=== PATIENT | female | born 1945 | race American Indian/Alaskan Native ===

== ENCOUNTER 2017-01-13 17:32 | Emergency (ER) | payer MEDICARE, OTHER ==
[2017-01-13] MEDS ORDERED: Albuterol/Ipratropium 3.0-0.5 MG/3 ML Neb Soln NEB ONE (18:40)
[2017-01-13 19:32] LABS: CHLORIDE,CL 108 mmol/L (101-111); SODIUM,NA 138 mmol/L (135-145)
[2017-01-13 19:43] VITALS: BP 134/49
[2017-01-13] MEDS ORDERED: Levofloxacin/Dextrose 5%-Water 750 MG in Premix Bag 1 BAG IV ONE (20:00)
--- NOTE | 2017-01-13 20:06 | EDM.PDOC ---
Scribed by María Ramesh 01/13/172004 for Goldie Last NP ED HPI GENERAL MEDICAL PROBLEM - General Chief Complaint: Respiratory Problem Stated Complaint: CHEST IS CONGESTED,HARD TO BREATH, Time Seen by Provider: 01/13/17 18:33 Source of Information: Reports: Patient, RN, RN Notes Reviewed History Limitations: Reports: No Limitations - History of Present Illness INITIAL COMMENTS - FREE TEXT/NARRATIVE: Patient states the cough began this am.Wheezing this am. Coughing up white sputum. Used [place] cough drops. No sore throat, fevers, chest pain, nausea, vomiting or diarrhea. Positive chills and SOB. Onset: Today Location: Reports: Head, Chest Quality: Reports: Ache Severity: Mild Improves with: Reports: None Worsens with: Reports: None Associated Symptoms: Reports: No Other Symptoms - Related Data Allergies Allergy/AdvReac Type Severity Reaction Status Date / Time Iodinated Contrast- Oral and Allergy Cannot Verified 01/06/16 18:05 IV Dye Remember [Iodinated Contrast Media - IV Dye] lisinopril Allergy Cannot Verified 01/06/16 18:05 Remember shellfish derived Allergy Cannot Verified 01/06/16 18:05 Remember Home Meds: Home Meds Acetaminophen 1,000 mg PO Q4H PRN 09/19/14 [History] Aspirin [Halfprin] 81 mg PO DAILY 09/19/14 [History] Calcium Citrate/Vitamin D3 [Calcium Cit-Vit D 315-200] 1 tab PO BID 09/19/14 [ History] Cholecalciferol (Vitamin D3) [Vitamin D3] 1 tab PO BID 09/19/14 [History] Diclofenac Sodium [Voltaren 1% Gel] 1 applic TOP QID PRN 09/19/14 [History] Iron Polysaccharides Complex [Ferrex 150] 150 mg PO DAILY 09/19/14 [History] Loratadine 10 mg PO DAILY 09/19/14 [History] Pnv No.122/Iron/Folic Acid [ Multi Tablet] 1 tab PO DAILY 09/19/14 [ History] sitaGLIPtin Phos/Metformin HCl [Janumet Xr 50-1,000 mg Tablet] 1 tab PO BID 10/27 [History] Past Medical History HEENT History: Reports: Allergic Rhinitis, Impaired Vision Cardiovascular History: Reports: Hypertension Other Cardiovascular History: ?TIA vs neuritis pain left face. 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 Endocrine/Metabolic History: Reports: Diabetes, Type II Other Endocrine/Metabolic History: OSTEOARTHRITIS, right knee Hematologic History: Reports: Iron Deficiency Immunologic History: Reports: None Oncologic (Cancer) History: Reports: None Dermatologic History: Reports: None - Infectious Disease History Infectious Disease History: Reports: Chicken Pox, Measles, Mumps - Past Surgical History Head Surgeries/Procedures: Reports: None HEENT Surgical History: Reports: Cataract Surgery GI Surgical History: Reports: Appendectomy, Cholecystectomy Female Surgical History: Reports: Section Social & Family History - Family History Family Medical History: Noncontributory - Tobacco Use Smoking Status *Q: Never Smoker Years of Tobacco use: 50 Packs/Tins Daily: 1 Used Tobacco, but Quit: Yes Month Tobacco Last Used: March Second Hand Smoke Exposure: No - Caffeine Use Caffeine Use: Reports: Coffee, Tea - Recreational Drug Use Recreational Drug Use: No ED ROS GENERAL - Review of Systems Review Of Systems: ROS reveals no pertinent complaints other than HPI. ED EXAM, GENERAL - Physical Exam Exam: See Below Exam Limited By: No Limitations General Appearance: Alert, WD/WN, No Apparent Distress Eye Exam: Bilateral Eye: Normal Inspection Ears: Normal External Exam, Normal Canal, Hearing Grossly Normal, Normal TMs Nose: Normal Inspection, Normal Mucosa, No Blood Throat/Mouth: Normal Inspection, Normal Lips, Normal Teeth, Normal Gums, Normal Oropharynx, Normal Voice, No Airway Compromise Head: Atraumatic, Normocephalic Neck: Normal Inspection, Supple, Non-Tender, Full Range of Motion Respiratory/Chest: Crackles (RLL. ), Wheezing (throughout) Cardiovascular: Normal Peripheral Pulses, Regular Rate, Rhythm, No Edema, No Gallop, No JVD, No Murmur, No Rub GI/Abdominal: Normal Bowel Sounds, Soft, Non-Tender, No Organomegaly, No Distention, No Abnormal Bruit, No Mass (Female) Exam: Deferred Rectal (Female) Exam: Deferred Back Exam: Normal Inspection, Full Range of Motion, NT Extremities: Normal Inspection, Normal Range of Motion, Non-Tender, Normal Capillary Refill, No Pedal Edema Neurological: Alert, Oriented, CN II-XII Intact, Normal Cognition, Normal Gait, Normal Reflexes, No Motor/Sensory Deficits Psychiatric: Normal Affect, Normal Mood Skin Exam: Warm, Dry, Intact, Normal Color, No Rash Course - Vital Signs Last Recorded V/S: Last Vital Signs Temp 99.3 F 01/13/17 19:43 Pulse 79 01/13/17 19:43 Resp 18 01/13/17 19:43 BP 134/49 L 01/13/17 19:43 Pulse Ox 98 01/13/17 19:43 - Orders/Labs/Meds Orders: Active Orders 24 hr Category Date Time Status RT Aerosol Therapy [RC] ASDIRECTED Care 01/13/17 18:40 Active CULTURE BLOOD [BC] Stat Lab 01/13/17 19:41 Ordered CULTURE BLOOD [BC] Stat Lab 01/13/17 19:41 Ordered LACTIC ACID [CHEM] Stat Lab 01/13/17 19:41 Ordered Levofloxacin/Dextrose 5%-Water [Levaquin in D5W 750 MG/ Med 01/13/17 20:00 Ordered 150 ML] 750 mg Premix Bag 1 bag IV ONETIME Blood Culture x2 Reflex Set [OM.PC] Stat Oth 01/13/17 19:41 Ordered Medication Orders Levofloxacin/Dextrose 750 mg/ (Premix) 150 mls @ 100 mls/hr IV ONETIME ONE Stop: 01/13/17 21:29 Labs: Laboratory Tests 01/13/17 01/13/17 Range/Units 18:55 18:55 WBC 13.2 H (5.0-10.0) 10^3/uL RBC 4.65 (4.2-5.4) 10^6/uL Hgb 10.2 L (12.0-16.0) g/dL Hct 33.3 L (37.0-47.0) % MCV 71.6 L (80-100) fL MCH 21.9 L (27.0-34.0) pg MCHC 30.6 L (33.0-35.0) g/dL Plt Count 206 (150-450) 10^3/uL Neut % (Auto) 81.0 H (42.2-75.2) % Lymph % (Auto) 8.2 L (20.5-50.1) % [place] % (Auto) 10.0 H (2-8) % Eos % (Auto) 0.5 L (1.0-3.0) % Baso % (Auto) 0.3 (0.0-1.0) % Sodium 138 (135-145) mmol/L Potassium 3.8 (3.6-5.0) mmol/L Chloride 108 (101-111) mmol/L Carbon Dioxide 21.0 (21.0-31.0) mmol/L Anion Gap 12.8 BUN 12 (7-18) mg/dL Creatinine 0.6 (0.6-1.3) mg/dL Est Cr Clr Drug Dosing 74.81 mL/min Estimated GFR (MDRD) > 60 BUN/Creatinine Ratio 20.00 Glucose 95 (74-105) mg/dL Calcium 8.6 (8.4-10.2) mg/dl Total Bilirubin 0.9 (0.2-1.0) mg/dL AST 34 (10-42) IU/L ALT 18 (10-60) IU/L Alkaline Phosphatase 133 H (42-121) IU/L Total Protein 7.1 (6.7-8.2) g/dl Albumin 3.4 (3.2-5.5) g/dl Globulin 3.7 Albumin/Globulin Ratio 0.92 Meds: Medications Generic Name Dose Route Start Last Admin Trade Name Freq PRN Reason Stop Dose Admin Levofloxacin/Dextrose 750 mg/ 150 mls @ 100 mls/hr 01/13/17 20:00 Premix IV 01/13/17 21:29 ONETIME ONE Discontinued Medications Generic Name Dose Route Start Last Admin Trade Name Freq PRN Reason Stop Dose Admin Albuterol/Ipratropium 3 ml 01/13/17 18:40 01/13/17 18:52 Duoneb 3.0-0.5 Mg/3 Ml NEB 01/13/17 18:41 3 ml ONETIME ONE Administration - Radiology Interpretation Free Text/Narrative:: chest xray: right middle lobe pneumonia See rad report Departure - Departure Time of Disposition: 20:30 Disposition: Home, Self-Care 01 Clinical Impression: Pneumonia Qualifiers: Pneumonia type: due to unspecified organism Laterality: right Lung location: middle lobe of lung Qualified Code(s): J18.1 - Lobar pneumonia, unspecified organism - Discharge Information Instructions: Community-Acquired Pneumonia, Adult, [id number] Forms: ED Department Discharge Additional Instructions: Levaquin 500mg orally for 5 days. Follow up with your primary care facility on Wednesday. Drink plenty of fluids. Tylenol or ibuprofen for pain/fever as directed as needed. - My Orders Last 24 Hours: My Active Orders 01/13/17 18:40 RT Aerosol Therapy [RC] ASDIRECTED 01/13/17 19:41 CULTURE BLOOD [BC] Stat CULTURE BLOOD [BC] Stat LACTIC ACID [CHEM] Stat Blood Culture x2 Reflex Set [OM.PC] Stat 01/13/17 20:00 Levofloxacin/Dextrose 5%-Water [Levaquin in D5W 750 MG/150 ML] 750 mg Premix Bag 1 bag IV ONETIME - Assessment/Plan Last 24 Hours: My Active Orders 01/13/17 18:40 RT Aerosol Therapy [RC] ASDIRECTED 01/13/17 19:41 CULTURE BLOOD [BC] Stat CULTURE BLOOD [BC] Stat LACTIC ACID [CHEM] Stat Blood Culture x2 Reflex Set [OM.PC] Stat 01/13/17 20:00 Levofloxacin/Dextrose 5%-Water [Levaquin in D5W 750 MG/150 ML] 750 mg Premix Bag 1 bag IV ONETIME I have read and agree with the documentation that has been completed regarding this visit. By signing this record, I attest that the documentation was completed in my physical presence and is an accurate record of the encounter.
== END 2017-01-13 22:16 | disposition home or self-care (01) ==
LOC: DL.ED 17:32
DX: J18.9 Pneumonia, unspecified organism (principal); I10 Essential (primary) hypertension; G51.0 Bell's palsy; E11.9 Type 2 diabetes mellitus without complications; Z88.8 Allergy status to other drugs, medicaments and biological substances; Z91.013 Allergy to seafood; Z79.82 Long term (current) use of aspirin; Z79.899 Other long term (current) drug therapy
CPT/HCPCS: 36415; 71020; 80053; 83605; 85025; 87040; 94640; 96365; 96366; 99284; J1956

== ENCOUNTER 2017-09-18 15:48 | Emergency (ER) | payer OTHER, MEDICARE ==
--- NOTE | 2017-09-18 16:19 | EDM.PDOC ---
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 She states she thought she had a yeast infection at first because there was some itching. Pt denies fever, N/V, or flank pain. Admits to chills, and suprapubic pressure. Onset: Gradual Duration: Day(s): (3-4), Getting Worse Location: Reports: Other (urinary) Quality: Reports: Burning, Same as Previous Episode Severity: Severe Improves with: Reports: None Worsens with: Reports: Other (urination) Associated Symptoms: Reports: No Other Symptoms Headache Pain Score (Numeric/FACES): 4 - Related Data Allergies Allergy/AdvReac Type Severity Reaction Status Date / Time Iodinated Contrast- Oral and Allergy Cannot Verified 01/06/16 18:05 IV Dye Remember [Iodinated Contrast Media - IV Dye] lisinopril Allergy Cannot Verified 01/06/16 18:05 Remember shellfish derived Allergy Cannot Verified 01/06/16 18:05 Remember Home Meds: Home Meds Acetaminophen 1,000 mg PO Q4H PRN 09/19/14 [History] Aspirin [Halfprin] 81 mg PO DAILY 09/19/14 [History] Calcium Citrate/Vitamin D3 [Calcium Cit-Vit D 315-200] 1 tab PO BID 09/19/14 [ History] Cholecalciferol (Vitamin D3) [Vitamin D3] 1 tab PO BID 09/19/14 [History] Diclofenac Sodium [Voltaren 1% Gel] 1 applic TOP QID PRN 09/19/14 [History] Iron Polysaccharides Complex [Ferrex 150] 150 mg PO DAILY 09/19/14 [History] Loratadine 10 mg PO DAILY 09/19/14 [History] Pnv No.122/Iron/Folic Acid [ Multi Tablet] 1 tab PO DAILY 09/19/14 [ History] sitaGLIPtin Phos/Metformin HCl [Janumet Xr 50-1,000 mg Tablet] 1 tab PO BID 10/27 [History] Past Medical History HEENT History: Reports: Allergic Rhinitis, Impaired Vision Cardiovascular History: Reports: Hypertension Other Cardiovascular History: ?TIA vs neuritis pain left face. 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 Endocrine/Metabolic History: Reports: Diabetes, Type II Other Endocrine/Metabolic History: OSTEOARTHRITIS, right knee Hematologic History: Reports: Iron Deficiency Immunologic History: Reports: None Oncologic (Cancer) History: Reports: None Dermatologic History: Reports: None - Infectious Disease History Infectious Disease History: Reports: Chicken Pox, Measles, Mumps - Past Surgical History Head Surgeries/Procedures: Reports: None HEENT Surgical History: Reports: Cataract Surgery GI Surgical History: Reports: Appendectomy, Cholecystectomy Female Surgical History: Reports: Section Social & Family History - Family History Family Medical History: Noncontributory - Caffeine Use Caffeine Use: Reports: Coffee, Tea - Living Situation & Occupation Living situation: Reports: with Family Occupation: Retired ED ROS GENERAL - Review of Systems Review Of Systems: ROS reveals no pertinent complaints other than HPI. ED EXAM, RENAL/ - Physical Exam Exam: See Below Exam Limited By: No Limitations General Appearance: Alert, WD/WN, No Apparent Distress, Obese Eye Exam: Bilateral Eye: Normal Inspection Nose: Normal Inspection Throat/Mouth: Normal Inspection, Normal Lips, Normal Voice, No Airway Compromise Head: Atraumatic, Normocephalic Neck: Normal Inspection, Supple, Non-Tender, Full Range of Motion Respiratory/Chest: No Respiratory Distress, Lungs Clear, Normal Breath Sounds, No Accessory Muscle Use, Chest Non-Tender Cardiovascular: Regular Rate, Rhythm, No Edema GI/Abdominal: Normal Bowel Sounds, Soft, No Distention, Tender (mild suprapubic tenderness). No: Guarding, Rigid, Rebound (Female) Exam: Deferred Rectal (Female) Exam: Deferred Back Exam: Normal Inspection. No: CVA Tenderness (L), CVA Tenderness (R) Extremities: Normal Inspection Neurological: Alert, Oriented, Normal Cognition, Normal Gait, No Motor/Sensory Deficits Psychiatric: Normal Affect, Normal Mood Skin Exam: Warm, Dry, Intact, Normal Color, No Rash Course - Vital Signs Last Recorded V/S: Last Vital Signs Temp 37.0 C 09/18/17 16:20 Pulse 68 09/18/17 16:20 Resp 16 09/18/17 16:20 BP 134/68 09/18/17 16:20 Pulse Ox 98 09/18/17 16:20 - Orders/Labs/Meds Orders: Active Orders 24 hr Category Date Time Status CULTURE URINE [RM] Stat Lab 09/18/17 16:15 Received Labs: Laboratory Tests 09/18/17 Range/Units 16:15 Urine Color Dark yellow (YELLOW) Urine Appearance Cloudy (CLEAR) Urine pH 5.5 (5.0-9.0) Ur Specific [place] 1.025 (1.005-1.030) Urine Protein 30 H (NEGATIVE) Urine Glucose (UA) 100 H (NEGATIVE) Urine Ketones 15 H (NEGATIVE) Urine Occult Blood Negative (NEGATIVE) Urine Nitrite Positive H (NEGATIVE) Urine Bilirubin Moderate H (NEGATIVE) Urine Urobilinogen >=8.0 H (0.2-1.0) mg/dL Ur Leukocyte Esterase Trace H (NEGATIVE) Urine RBC 0-5 /HPF Urine WBC 5-10 H (0-5/HPF) /HPF Ur Epithelial Cells Many H /HPF Urine Bacteria Many H (0-FEW/HPF) /HPF Urine Mucus Few H /LPF Meds: Medications Discontinued Medications Generic Name Dose Route Start Last Admin Trade Name Freq PRN Reason Stop Dose Admin Ceftriaxone Sodium 1 gm/ 0 gm 09/18/17 16:59 Lidocaine HCl 2.1 ml IM 09/18/17 17:00 ONETIME ONE Fluconazole 200 mg 09/18/17 17:00 Diflucan PO 09/18/17 17:01 ONETIME ONE Phenazopyridine HCl 190 mg 09/18/17 16:59 Urinary Pain Relief PO 09/18/17 17:00 ONETIME ONE Departure - Departure Time of Disposition: 17:19 Disposition: Home, Self-Care 01 Condition: Good Clinical Impression: UTI (urinary tract infection) Qualifiers: Urinary tract infection type: acute cystitis Hematuria presence: without hematuria Qualified Code(s): N30.00 - Acute cystitis without hematuria - Discharge Information Instructions: Urinary Tract Infection, Adult Forms: ED Department Discharge Additional Instructions: Rx: Cipro 500mg Rx: Pyridium 200mg *Turns urine orange. Follow up in clinic for urine recheck in 7 to 10 days. - My Orders Last 24 Hours: My Active Orders 09/18/17 16:15 CULTURE URINE [RM] Stat - Assessment/Plan Last 24 Hours: My Active Orders 09/18/17 16:15 CULTURE URINE [] Stat
[2017-09-18 16:21] VITALS: BP 134/68
[2017-09-18] MEDS ORDERED: Phenazopyridine 95 MG Tab PO ONE (16:59)
[2017-09-18] MEDS ORDERED: cefTRIAXone 1 GM, Lidocaine 1% 2.1 ML IM ONE ×2 (16:59)
[2017-09-18] MEDS ORDERED: Fluconazole 100 MG Tab PO ONE (17:00)
== END 2017-09-18 17:37 | disposition home or self-care (01) ==
LOC: DL.ED 15:48
DX: N30.00 Acute cystitis without hematuria (principal); E11.9 Type 2 diabetes mellitus without complications; I10 Essential (primary) hypertension; Z91.041 Radiographic dye allergy status; Z88.8 Allergy status to other drugs, medicaments and biological substances; Z91.013 Allergy to seafood; Z79.82 Long term (current) use of aspirin
CPT/HCPCS: 81001; 87086; 87088; 87186; 96372; 99283; A9270; J0696

== ENCOUNTER 2018-08-08 15:25 | Emergency (ER) | payer MEDICARE, MEDICAID ==
[2018-08-08] MEDS ORDERED: Acetaminophen/HYDROcodone 325-5 MG Tab PO ONE (15:26)
[2018-08-08 15:39] VITALS: BP 131/53
[2018-08-08] MEDS ORDERED: Morphine 2 MG/ML Syringe IVPUSH ONE (15:44)
--- NOTE | 2018-08-08 15:47 | EDM.PDOC ---
ED HPI GENERAL MEDICAL PROBLEM - General Chief Complaint: Lower Extremity Injury/Pain Stated Complaint: AMBULANCE Time Seen by Provider: 08/08/18 15:35 Source of Information: Reports: Patient History Limitations: Reports: No Limitations - History of Present Illness INITIAL COMMENTS - FREE TEXT/NARRATIVE: This 73 yo female patient was brought to the ED by [facility] due to right knee swelling and increased pain. The patient reports she has noticed increased pain since this past . The patient did call the orthopedic surgeon and was supposed to get another medication, but has not gotten it at this time. The patient reports she has been putting some weight on the knee, but denies any falls or trauma to the knee. The patient has also noticed some drainage from the knee (amber). Onset Date: 08/04/18 Duration: Constant, Getting Worse Location: Reports: Lower Extremity, Right (Knee) Quality: Reports: Ache, Throbbing Severity: Moderate Improves with: Reports: None Worsens with: Reports: None Context: Reports: Other (Knee surgery on 08/02/18) Associated Symptoms: Reports: No Other Symptoms Right Knee Pain Score (Numeric/FACES): 8 - Related Data Allergies Allergy/AdvReac Type Severity Reaction Status Date / Time Iodinated Contrast- Oral and Allergy Hives Verified 08/08/18 15:29 IV Dye [Iodinated Contrast Media - IV Dye] lisinopril Allergy Cough Verified 08/08/18 15:29 saxagliptin Allergy Cannot Verified 08/08/18 15:29 Remember shellfish derived Allergy Hives Verified 08/08/18 15:29 LISINOPRIL-HYDROCHLOROTHIAZIDE Allergy Other Uncoded 08/08/18 15:29 Home Meds: Home Meds Acetaminophen 1,000 mg PO Q4H PRN 09/19/14 [History] Aspirin [Halfprin] 81 mg PO DAILY 09/19/14 [History] Metoprolol Tartrate [Lopressor] 12.5 mg PO BID 10/14/17 [History] metFORMIN [Glucophage] 1,000 mg PO BIDMEALS 10/14/17 [History] glyBURIDE [Glyburide] 5 mg PO BID 04/26/18 [History] Celecoxib 100 mg PO BID 08/08/18 [History] Celecoxib 100 mg PO BID 08/08/18 [History] Past Medical History HEENT History: Reports: Allergic Rhinitis, Impaired Vision Cardiovascular History: Reports: Hypertension Other Cardiovascular History: ?TIA vs neuritis pain left face. 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 Endocrine/Metabolic History: Reports: Diabetes, Type II, Obesity/BMI 30+ Other Endocrine/Metabolic History: OSTEOARTHRITIS, right knee Hematologic History: Reports: Anemia, Iron Deficiency, Other (See Below) Other Hematologic History: Hypoalbumenia Immunologic History: Reports: None Oncologic (Cancer) History: Reports: None Dermatologic History: Reports: None - Infectious Disease History Infectious Disease History: Reports: Chicken Pox, Measles, Mumps - Past Surgical History Head Surgeries/Procedures: Reports: None HEENT Surgical History: Reports: Cataract Surgery Cardiovascular Surgical History: Reports: None Respiratory Surgical History: Reports: None GI Surgical History: Reports: Appendectomy, Cholecystectomy, Colonoscopy, Polypectomy Female Surgical History: Reports: Section Endocrine Surgical History: Reports: None Musculoskeletal Surgical History: Reports: Other (See Below) Other Musculoskeletal Surgeries/Procedures:: bilateral shoulder surgery Oncologic Surgical History: Reports: None Dermatological Surgical History: Reports: None Social & Family History - Family History Family Medical History: Noncontributory - Tobacco Use Smoking Status *Q: Never Smoker - Caffeine Use Caffeine Use: Reports: Coffee, Tea Caffeine Use Comment: 32oz coffee. 8 oz daily tea - Recreational Drug Use Recreational Drug Use: No - Living Situation & Occupation Living situation: Reports: with Family Occupation: Retired Review of Systems - Review of Systems Review Of Systems: ROS reveals no pertinent complaints other than HPI. ED EXAM, GENERAL - Physical Exam Exam: See Below Exam Limited By: No Limitations General Appearance: Alert, WD/WN, Moderate Distress Eye Exam: Bilateral Eye: EOMI, Normal Inspection, PERRL Ears: Normal External Exam, Normal Canal, Hearing Grossly Normal, Normal TMs Nose: Normal Inspection, Normal Mucosa, No Blood Throat/Mouth: Normal Inspection, Normal Lips, Normal Teeth, Normal Gums, Normal Oropharynx, Normal Voice, No Airway Compromise Head: Atraumatic, Normocephalic Neck: Normal Inspection, Supple, Non-Tender, Full Range of Motion Respiratory/Chest: No Respiratory Distress, Lungs Clear, Normal Breath Sounds, No Accessory Muscle Use, Chest Non-Tender Cardiovascular: Normal Peripheral Pulses, Regular Rate, Rhythm, No Edema, No Gallop, No JVD, No Murmur, No Rub GI/Abdominal: Normal Bowel Sounds, Soft, Non-Tender, No Organomegaly, No Distention, No Abnormal Bruit, No Mass (Female) Exam: Deferred Rectal (Female) Exam: Deferred Back Exam: Normal Inspection, Full Range of Motion, NT Extremities: Other (The patient has swelling in her right knee and right lower extremity with some clear drainage from her surgical site. ) Neurological: Alert, Oriented, CN II-XII Intact, Normal Cognition, Normal Gait, Normal Reflexes, No Motor/Sensory Deficits Psychiatric: Normal Affect, Normal Mood Skin Exam: Warm, Dry, Intact, Normal Color, No Rash Lymphatic: No Adenopathy Course - Vital Signs Last Recorded V/S: Last Vital Signs Temp 37.1 C 08/08/18 15:38 Pulse 70 08/08/18 15:38 Resp 14 08/08/18 15:38 BP 131/53 L 08/08/18 15:38 Pulse Ox 97 08/08/18 15:38 - Orders/Labs/Meds Labs: Laboratory Tests 08/08/18 08/08/18 08/08/18 Range/Units 15:46 15:46 15:46 WBC 5.3 (5.0-10.0) 10^3/uL RBC 3.41 L (4.2-5.4) 10^6/uL Hgb 7.6 L D (12.0-16.0) g/dL Hct 25.2 L (37.0-47.0) % MCV 73.9 L (80-100) fL MCH 22.3 L (27.0-34.0) pg MCHC 30.2 L (33.0-35.0) g/dL Plt Count 258 (150-450) 10^3/uL Neut % (Auto) 58.8 (42.2-75.2) % Lymph % (Auto) 19.4 L (20.5-50.1) % [place] % (Auto) 15.6 H (2-8) % Eos % (Auto) 5.6 H (1.0-3.0) % Baso % (Auto) 0.6 (0.0-1.0) % Sodium 139 (135-145) mmol/L Potassium 4.2 (3.6-5.0) mmol/L Chloride 110 (101-111) mmol/L Carbon Dioxide 21.0 (21.0-31.0) mmol/L Anion Gap 12.2 BUN 11 (7-18) mg/dL Creatinine 0.6 (0.6-1.3) mg/dL Est Cr Clr Drug Dosing 74.26 mL/min Estimated GFR (MDRD) > 60 BUN/Creatinine Ratio 18.33 Glucose 119 H (74-105) mg/dL Lactic Acid 1.8 (0.5-2.2) mmol/L Calcium 7.8 L (8.4-10.2) mg/dl Total Bilirubin 1.5 H (0.2-1.0) mg/dL AST 24 (10-42) IU/L ALT 10 (10-60) IU/L Alkaline Phosphatase 72 (42-121) IU/L Total Protein 5.9 L (6.7-8.2) g/dl Albumin 2.7 L (3.2-5.5) g/dl Globulin 3.2 Albumin/Globulin Ratio 0.84 Meds: Medications Discontinued Medications Generic Name Dose Route Start Last Admin Trade Name Freq PRN Reason Stop Dose Admin Cephalexin 500 mg 08/08/18 17:06 Keflex PO 08/08/18 17:07 ONETIME ONE Morphine Sulfate 2 mg 08/08/18 15:44 08/08/18 15:58 Morphine IVPUSH 08/08/18 15:45 2 mg ONETIME ONE Administration Departure - Departure Time of Disposition: 17:08 Disposition: Home, Self-Care 01 Condition: Fair Clinical Impression: Knee swelling Cellulitis Qualifiers: Site of cellulitis: extremity Site of cellulitis of extremity: lower extremity Laterality: right Qualified Code(s): L03.115 - Cellulitis of right lower limb - Discharge Information *PRESCRIPTION DRUG MONITORING PROGRAM REVIEWED*: Not Applicable *COPY OF PRESCRIPTION DRUG MONITORING REPORT IN PATIENT SANDHYA: Not Applicable Instructions: Cellulitis, Adult, [id number] Forms: ED Department Discharge Care Plan Goals: The patient was advised of the examination and lab results during the visit. The patient was given an oral dose of Keflex and an IV dose of Morphine while in the ED. The patient was discharged with a script for Keflex (500 mg) to take 1 by mouth 3 times per day for 14 days. The patient was also sent home with [place] (5/325) #2 to take 1 by mouth every 6 hours as needed for pain. The patient was encouraged to rest, ice and elevate the extremity. If the patient has any additional symptoms or concerns, the patient should either return to the emergency department or visit her primary care facility.
[2018-08-08 16:13] LABS: ANION GAP 12.2; CHLORIDE,CL 110 mmol/L (101-111); SODIUM,NA 139 mmol/L (135-145)
[2018-08-08] MEDS ORDERED: Cephalexin 500 MG Cap PO ONE (17:06)
[2018-08-08] MEDS ORDERED: Acetaminophen/HYDROcodone 325-5 MG Tab ONE (17:27)
== END 2018-08-08 17:49 | disposition home or self-care (01) ==
LOC: DL.ED 15:25
DX: L03.115 Cellulitis of right lower limb (principal); I10 Essential (primary) hypertension; E11.9 Type 2 diabetes mellitus without complications; Z79.84 Long term (current) use of oral hypoglycemic drugs; Z79.82 Long term (current) use of aspirin; Z91.041 Radiographic dye allergy status; Z91.013 Allergy to seafood; Z88.8 Allergy status to other drugs, medicaments and biological substances
CPT/HCPCS: 36415; 80053; 83605; 85025; 96374; 99283; A9270; J2270

== ENCOUNTER 2018-11-07 23:40 | Emergency (ER) | payer MEDICARE, MEDICAID ==
[2018-11-08] MEDS ORDERED: Pantoprazole 80 MG in Sodium Chloride 0.9% 100 ML IV ONE (00:17)
[2018-11-08 00:21] LABS: ANION GAP 14.6; CHLORIDE,CL 111 mmol/L (101-111); SODIUM,NA 138 mmol/L (135-145)
--- NOTE | 2018-11-08 00:36 | EDM.PDOC ---
ED HPI GENERAL MEDICAL PROBLEM - General Chief Complaint: General Stated Complaint: AMBULANCE Time Seen by Provider: 11/07/18 23:45 Source of Information: Reports: Patient History Limitations: Reports: No Limitations - History of Present Illness INITIAL COMMENTS - FREE TEXT/NARRATIVE: stomach pain, dark stools x one week, no fever no chills. dizzy tonight, nausea no vomiting. Non smoker, occasional cough. Bilateral Lower Abdomen Pain Score (Numeric/FACES): 5 - Related Data Allergies Allergy/AdvReac Type Severity Reaction Status Date / Time Iodinated Contrast Media Allergy Hives Verified 08/08/18 15:29 [Iodinated Contrast Media - IV Dye] lisinopril Allergy Cough Verified 08/08/18 15:29 saxagliptin Allergy Cannot Verified 08/08/18 15:29 Remember shellfish derived Allergy Hives Verified 08/08/18 15:29 LISINOPRIL-HYDROCHLOROTHIAZIDE Allergy Other Uncoded 08/08/18 15:29 Home Meds: Home Meds Acetaminophen 1,000 mg PO Q4H PRN 09/19/14 [History] Aspirin [Halfprin] 81 mg PO DAILY 09/19/14 [History] Metoprolol Tartrate [Lopressor] 12.5 mg PO BID 10/14/17 [History] metFORMIN [Glucophage] 1,000 mg PO BIDMEALS 10/14/17 [History] glyBURIDE [Glyburide] 5 mg PO BID 04/26/18 [History] Celecoxib 100 mg PO BID 08/08/18 [History] Celecoxib 100 mg PO BID 08/08/18 [History] Past Medical History HEENT History: Reports: Allergic Rhinitis, Impaired Vision Cardiovascular History: Reports: Hypertension Other Cardiovascular History: ?TIA vs neuritis pain left face. 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 Degenerative disc disease Neurological History: Other Neuro History: [place] Palsey Left side face since Psychiatric History: Reports: Other (See Below) Other Psychiatric History: history of alcohol abuse. Endocrine/Metabolic History: Reports: Diabetes, Type II, Obesity/BMI 30+ Other Endocrine/Metabolic History: OSTEOARTHRITIS, right knee Hematologic History: Reports: Anemia, Iron Deficiency, Other (See Below) Other Hematologic History: Hypoalbumenia Immunologic History: Reports: None Oncologic (Cancer) History: Reports: None Dermatologic History: Reports: None - Infectious Disease History Infectious Disease History: Reports: Chicken Pox, Measles, Mumps - Past Surgical History Head Surgeries/Procedures: Reports: None HEENT Surgical History: Reports: Cataract Surgery Cardiovascular Surgical History: Reports: None Respiratory Surgical History: Reports: None GI Surgical History: Reports: Appendectomy, Cholecystectomy, Colonoscopy, Polypectomy Female Surgical History: Reports: Section Endocrine Surgical History: Reports: None Musculoskeletal Surgical History: Reports: Other (See Below) Other Musculoskeletal Surgeries/Procedures:: bilateral shoulder surgery Oncologic Surgical History: Reports: None Dermatological Surgical History: Reports: None Social & Family History - Family History Family Medical History: Noncontributory - Caffeine Use Caffeine Use: Reports: Coffee, Tea Caffeine Use Comment: 32oz coffee. 8 oz daily tea - Living Situation & Occupation Living situation: Reports: with Family Occupation: Retired ED ROS GENERAL - Review of Systems Review Of Systems: ROS reveals no pertinent complaints other than HPI. Constitutional: Reports: Malaise HEENT: Reports: No Symptoms Respiratory: Reports: Shortness of Breath (with activity tonight) Cardiovascular: Reports: Dyspnea on Exertion, Lightheadedness. Denies: Chest Pain, Blood Pressure Problem GI/Abdominal: Reports: Abdominal Pain (general upper), Melena Musculoskeletal: Reports: No Symptoms Skin: Reports: No Symptoms Neurological: Reports: No Symptoms ED EXAM, GENERAL - Physical Exam Exam: See Below Exam Limited By: Other General Appearance: Mild Distress Eye Exam: Bilateral Eye: EOMI Ears: Normal External Exam, Hearing Grossly Normal Nose: Normal Inspection Head: Atraumatic, Normocephalic Neck: Normal Inspection Respiratory/Chest: No Respiratory Distress, Lungs Clear, Normal Breath Sounds, Other (ocassional loose productive cough white sputum) Cardiovascular: Regular Rate, Rhythm GI/Abdominal: Normal Bowel Sounds, Soft, Tender (general upper mid ). No: Distended, Guarding, Rebound Back Exam: Full Range of Motion Neurological: Alert, Oriented, Normal Cognition Psychiatric: Normal Affect Skin Exam: Warm, Dry, Pallor Course - Vital Signs Last Recorded V/S: Last Vital Signs Temp 98.8 F 11/08/18 01:09 Pulse 102 H 11/08/18 01:09 Resp 25 H 11/08/18 01:09 BP 156/58 H 11/08/18 01:09 Pulse Ox 96 11/08/18 01:09 - Orders/Labs/Meds Orders: Active Orders 24 hr Category Date Time Status Blood Glucose Check, Bedside [RC] ONETIME Care 11/07/18 23:51 Active EKG Documentation Completion [RC] STAT Care 11/07/18 23:51 Active RED BLOOD CELLS APH2 LR [BBK] Stat Lab 11/08/18 01:09 Results Transfuse Red Blood Cells [COMM] Stat Oth 11/08/18 01:09 Ordered Labs: Laboratory Tests 11/07/18 11/07/18 11/07/18 Range/Units 23:50 23:50 23:50 WBC 14.0 H (5.0-10.0) 10^3/uL RBC 2.00 L (4.2-5.4) 10^6/uL Hgb 4.0 L* D (12.0-16.0) g/dL Hct 14.3 L* (37.0-47.0) % MCV 71.5 L (80-100) fL MCH 20.0 L (27.0-34.0) pg MCHC 28.0 L (33.0-35.0) g/dL Plt Count 255 (150-450) 10^3/uL Neut % (Auto) 83.8 H (42.2-75.2) % Lymph % (Auto) 10.3 L (20.5-50.1) % Stanton % (Auto) 5.7 (2-8) % Eos % (Auto) 0.0 L (1.0-3.0) % Baso % (Auto) 0.2 (0.0-1.0) % PT (9.0-12.0) SEC INR (0.9-1.2) Sodium 138 (135-145) mmol/L Potassium 4.6 (3.6-5.0) mmol/L Chloride 111 (101-111) mmol/L Carbon Dioxide 17.0 L (21.0-31.0) mmol/L Anion Gap 14.6 BUN 44 H D (7-18) mg/dL Creatinine 0.8 (0.6-1.3) mg/dL Est Cr Clr Drug Dosing 60.38 mL/min Estimated GFR (MDRD) > 60 BUN/Creatinine Ratio 55.00 Glucose 172 H (74-105) mg/dL POC Glucose (83-110) mg/dl Calcium 8.1 L (8.4-10.2) mg/dl Total Bilirubin 0.7 (0.2-1.0) mg/dL AST 23 (10-42) IU/L ALT 13 (10-60) IU/L Alkaline Phosphatase 80 (42-121) IU/L Troponin I < 0.02 (0.00-0.02) ng/ml B-Natriuretic Peptide 21 (0-100) pg/ml Total Protein 5.4 L (6.7-8.2) g/dl Albumin 2.6 L (3.2-5.5) g/dl Globulin 2.8 Albumin/Globulin Ratio 0.93 Amylase 43 (28-100) U/L Lipase 58 H (22-51) U/L Blood Type Gel Antibody Screen Crossmatch 11/07/18 11/07/18 11/07/18 Range/Units 23:50 23:50 23:50 WBC (5.0-10.0) 10^3/uL RBC (4.2-5.4) 10^6/uL Hgb (12.0-16.0) g/dL Hct (37.0-47.0) % MCV (80-100) fL MCH (27.0-34.0) pg MCHC (33.0-35.0) g/dL Plt Count (150-450) 10^3/uL Neut % (Auto) (42.2-75.2) % Lymph % (Auto) (20.5-50.1) % Stanton % (Auto) (2-8) % Eos % (Auto) (1.0-3.0) % Baso % (Auto) (0.0-1.0) % PT 13.2 H (9.0-12.0) SEC INR 1.3 H (0.9-1.2) Sodium (135-145) mmol/L Potassium (3.6-5.0) mmol/L Chloride (101-111) mmol/L Carbon Dioxide (21.0-31.0) mmol/L Anion Gap BUN (7-18) mg/dL Creatinine (0.6-1.3) mg/dL Est Cr Clr Drug Dosing mL/min Estimated GFR (MDRD) BUN/Creatinine Ratio Glucose (74-105) mg/dL POC Glucose (83-110) mg/dl Calcium (8.4-10.2) mg/dl Total Bilirubin (0.2-1.0) mg/dL AST (10-42) IU/L ALT (10-60) IU/L Alkaline Phosphatase (42-121) IU/L Troponin I (0.00-0.02) ng/ml B-Natriuretic Peptide (0-100) pg/ml Total Protein (6.7-8.2) g/dl Albumin (3.2-5.5) g/dl Globulin Albumin/Globulin Ratio Amylase (28-100) U/L Lipase (22-51) U/L Blood Type O POSITIVE Gel Antibody Screen Negative Crossmatch See Detail See Detail 11/07/18 Range/Units 23:56 WBC (5.0-10.0) 10^3/uL RBC (4.2-5.4) 10^6/uL Hgb (12.0-16.0) g/dL Hct (37.0-47.0) % MCV (80-100) fL MCH (27.0-34.0) pg MCHC (33.0-35.0) g/dL Plt Count (150-450) 10^3/uL Neut % (Auto) (42.2-75.2) % Lymph % (Auto) (20.5-50.1) % Stanton % (Auto) (2-8) % Eos % (Auto) (1.0-3.0) % Baso % (Auto) (0.0-1.0) % PT (9.0-12.0) SEC INR (0.9-1.2) Sodium (135-145) mmol/L Potassium (3.6-5.0) mmol/L Chloride (101-111) mmol/L Carbon Dioxide (21.0-31.0) mmol/L Anion Gap BUN (7-18) mg/dL Creatinine (0.6-1.3) mg/dL Est Cr Clr Drug Dosing mL/min Estimated GFR (MDRD) BUN/Creatinine Ratio Glucose (74-105) mg/dL POC Glucose 191 H (83-110) mg/dl Calcium (8.4-10.2) mg/dl Total Bilirubin (0.2-1.0) mg/dL AST (10-42) IU/L ALT (10-60) IU/L Alkaline Phosphatase (42-121) IU/L Troponin I (0.00-0.02) ng/ml B-Natriuretic Peptide (0-100) pg/ml Total Protein (6.7-8.2) g/dl Albumin (3.2-5.5) g/dl Globulin Albumin/Globulin Ratio Amylase (28-100) U/L Lipase (22-51) U/L Blood Type Gel Antibody Screen Crossmatch Meds: Medications Discontinued Medications Generic Name Dose Route Start Last Admin Trade Name Freq PRN Reason Stop Dose Admin Pantoprazole Sodium 80 mg/ 100 mls @ 200 mls/hr 11/08/18 00:17 11/08/18 00:41 Sodium Chloride IV 11/08/18 00:46 200 mls/hr .BOLUS ONE Administration Departure - Departure Time of Disposition: 01:35 Disposition: DC/Tfer to Acute Hospital 02 Condition: Undetermined Clinical Impression: Anemia Qualifiers: Anemia type: unspecified type Qualified Code(s): D64.9 - Anemia, unspecified GI bleed Qualifiers: GI bleed type/associated pathology: unspecified gastrointestinal hemorrhage type Qualified Code(s): K92.2 - Gastrointestinal hemorrhage, unspecified - Discharge Information *PRESCRIPTION DRUG MONITORING PROGRAM REVIEWED*: No *COPY OF PRESCRIPTION DRUG MONITORING REPORT IN PATIENT SANDHYA: No Referrals: PCP,Unobtain [Primary Care Provider] - Forms: ED Department Discharge - My Orders Last 24 Hours: My Active Orders 11/07/18 23:51 Blood Glucose Check, Bedside [RC] ONETIME EKG Documentation Completion [RC] STAT 11/08/18 01:09 RED BLOOD CELLS APH2 LR [BBK] Stat Transfuse Red Blood Cells [COMM] Stat - Assessment/Plan Last 24 Hours: My Active Orders 11/07/18 23:51 Blood Glucose Check, Bedside [RC] ONETIME EKG Documentation Completion [RC] STAT 11/08/18 01:09 RED BLOOD CELLS APH2 LR [BBK] Stat Transfuse Red Blood Cells [COMM] Stat
[2018-11-08 01:11] VITALS: BP 156/58
== END 2018-11-08 01:33 ==
LOC: DL.ED 23:40
DX: K92.2 Gastrointestinal hemorrhage, unspecified (principal); D64.9 Anemia, unspecified; I10 Essential (primary) hypertension; E11.9 Type 2 diabetes mellitus without complications; M19.90 Unspecified osteoarthritis, unspecified site; E66.9 Obesity, unspecified; Z68.32 Body mass index [BMI] 32.0-32.9, adult; Z91.041 Radiographic dye allergy status; Z88.8 Allergy status to other drugs, medicaments and biological substances; Z91.013 Allergy to seafood; Z79.82 Long term (current) use of aspirin; Z79.84 Long term (current) use of oral hypoglycemic drugs; Z79.899 Other long term (current) drug therapy
CPT/HCPCS: 36415; 36430; 80053; 82150; 82272; 82962; 83690; 83880; 84484; 85025; 85610; 86850; 86900; 86901; 86920; 86922; 93005; 96365; 99285; C9113; J7050; P9016; 99284

== ENCOUNTER 2018-11-16 08:00 | Observation (INO) | payer MEDICARE, MEDICAID ==
--- NOTE | 2018-11-16 08:01 | EDM.PDOC ---
ED HPI GENERAL MEDICAL PROBLEM - General Chief Complaint: Diabetic Complaint Stated Complaint: AMBULANCE Time Seen by Provider: 11/16/18 08:01 Source of Information: Reports: Patient, EMS, Old Records, RN, RN Notes Reviewed - History of Present Illness INITIAL COMMENTS - FREE TEXT/NARRATIVE: Pt arrives from home by ambulance with c/o "low blood sugar". Pt has Hx of DM Type 2 on Metformin and a Sulfonylurea. She denies prior or frequent hypoglycemic episodes. EMS reports being called out to pt with decreased LOC, and found pt with blood glucose of 50. Paramedics gave 1 amp. of Dextrose 50%. On arrival to the ER pt had a blood glucose of 84. Pt denies any pain, headache , N/V, or shortness of breath. Pt was transferred from here on 11/07/18 with a hemoglobin of 4.0 and Dx of GI bleed. Pt states she received 6 units of blood while at [facility]. 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, Other Medication(s) (Dextrose) - Related Data Allergies Allergy/AdvReac Type Severity Reaction Status Date / Time Iodinated Contrast Media Allergy Hives Verified 08/08/18 15:29 [Iodinated Contrast Media - IV Dye] lisinopril Allergy Cough Verified 08/08/18 15:29 saxagliptin Allergy Cannot Verified 08/08/18 15:29 Remember shellfish derived Allergy Hives Verified 08/08/18 15:29 LISINOPRIL-HYDROCHLOROTHIAZIDE Allergy Other Uncoded 08/08/18 15:29 Home Meds: Home Meds Acetaminophen 1,000 mg PO Q4H PRN 09/19/14 [History] Aspirin [Halfprin] 81 mg PO DAILY 09/19/14 [History] Metoprolol Tartrate [Lopressor] 12.5 mg PO BID 10/14/17 [History] metFORMIN [Glucophage] 1,000 mg PO BIDMEALS 10/14/17 [History] glyBURIDE [Glyburide] 5 mg PO BID 04/26/18 [History] Amoxicillin/Clavulanate K [Augmentin 875-125 MG] 1 tab PO BID 11/16/18 [History] Famotidine 20 mg PO BID 11/16/18 [History] Fluconazole [Diflucan] 200 mg PO DAILY 11/16/18 [History] Pantoprazole [ProTONIX] 40 mg PO BID 11/16/18 [History] Sucralfate [Carafate] 1 gram PO QID 11/16/18 [History] Past Medical History HEENT History: Reports: Allergic Rhinitis, Impaired Vision Cardiovascular History: Reports: Hypertension Other Cardiovascular History: ?TIA vs neuritis pain left face. 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 Degenerative disc disease Neurological History: Other Neuro History: [place] Palsey Left side face since Psychiatric History: Reports: Other (See Below) Other Psychiatric History: history of alcohol abuse. Endocrine/Metabolic History: Reports: Diabetes, Type II, Obesity/BMI 30+ Other Endocrine/Metabolic History: OSTEOARTHRITIS, right knee Hematologic History: Reports: Anemia, Iron Deficiency, Other (See Below) Other Hematologic History: Hypoalbumenia Immunologic History: Reports: None Oncologic (Cancer) History: Reports: None Dermatologic History: Reports: None - Infectious Disease History Infectious Disease History: Reports: Chicken Pox, Measles, Mumps - Past Surgical History Head Surgeries/Procedures: Reports: None HEENT Surgical History: Reports: Cataract Surgery Cardiovascular Surgical History: Reports: None Respiratory Surgical History: Reports: None GI Surgical History: Reports: Appendectomy, Cholecystectomy, Colonoscopy, Polypectomy Female Surgical History: Reports: Section Endocrine Surgical History: Reports: None Musculoskeletal Surgical History: Reports: Other (See Below) Other Musculoskeletal Surgeries/Procedures:: bilateral shoulder surgery Oncologic Surgical History: Reports: None Dermatological Surgical History: Reports: None Social & Family History - Family History Family Medical History: Noncontributory - Caffeine Use Caffeine Use: Reports: Coffee, Tea Caffeine Use Comment: 32oz coffee. 8 oz daily tea - Living Situation & Occupation Living situation: Reports: with Family Occupation: Retired ED ROS GENERAL - Review of Systems Review Of Systems: ROS reveals no pertinent complaints other than HPI. ED EXAM GENERAL NO PERIP PULSE - Physical Exam Exam: See Below Exam Limited By: No Limitations General Appearance: Alert, No Apparent Distress, Obese Eye Exam: Bilateral Eye: Normal Inspection Ears: Hearing Grossly Normal Nose: Normal Inspection, Normal Mucosa, No Blood Throat/Mouth: Normal Lips, Normal Oropharynx, Normal Voice, No Airway Compromise , Other (Dry oral membranes) Head: Atraumatic, Normocephalic Neck: Normal Inspection, Supple, Non-Tender, Full Range of Motion Respiratory/Chest: No Respiratory Distress, Lungs Clear, No Accessory Muscle Use , Chest Non-Tender, Decreased Breath Sounds Cardiovascular: Regular Rate, Rhythm, Other (+2 B/L lower extremity edema to knees) GI/Abdominal: Normal Bowel Sounds, Soft, Non-Tender, No Distention (Female) Exam: Deferred Rectal (Female) Exam: Deferred Extremities: Normal Range of Motion, Non-Tender, Pedal Edema. No: Sharon's Sign Neurological: Alert, Oriented, No Motor/Sensory Deficits Psychiatric: Normal Mood Skin Exam: Warm, Dry, Intact Course - Vital Signs Last Recorded V/S: Last Vital Signs Temp 97.6 F 11/16/18 08:27 Pulse 82 11/16/18 08:27 Resp 18 11/16/18 08:27 BP 123/54 L 11/16/18 08:27 Pulse Ox 98 11/16/18 08:27 - Orders/Labs/Meds Orders: Active Orders 24 hr Category Date Time Status Blood Glucose Check, Bedside [RC] ONETIME Care 11/16/18 08:01 Active Dextrose 5%-0.45% NaCl [Dextrose 5%-1/2 NS] 1,000 ml Med 11/16/18 08:15 Active IV ASDIRECTED Potassium Chloride [KCl 10 MEQ in Water 100 ML] 10 meq Med 11/16/18 08:41 Active Premix Bag 1 bag IV ONETIME Medication Orders Dextrose/Sodium Chloride (Dextrose 5%-1/2 Ns) 1,000 mls @ 150 mls/hr IV ASDIRECTED CONNER Last Admin: 11/16/18 08:09 Dose: 150 mls/hr Potassium Chloride 10 meq/ (Premix) 100 mls @ 100 mls/hr IV ONETIME ONE Stop: 11/16/18 09:40 Labs: Laboratory Tests 11/16/18 11/16/18 11/16/18 Range/Units 08:02 08:10 08:10 WBC 8.0 (5.0-10.0) 10^3/uL RBC 3.20 L (4.2-5.4) 10^6/uL Hgb 7.9 L D (12.0-16.0) g/dL Hct 25.7 L (37.0-47.0) % MCV 80.3 D (80-100) fL MCH 24.7 L (27.0-34.0) pg MCHC 30.7 L (33.0-35.0) g/dL Plt Count 209 (150-450) 10^3/uL Neut % (Auto) 85.1 H (42.2-75.2) % Lymph % (Auto) 6.4 L (20.5-50.1) % [place] % (Auto) 8.1 H (2-8) % Eos % (Auto) 0.1 L (1.0-3.0) % Baso % (Auto) 0.3 (0.0-1.0) % Sodium 139 (135-145) mmol/L Potassium 2.8 L D (3.6-5.0) mmol/L Chloride 110 (101-111) mmol/L Carbon Dioxide 23.0 (21.0-31.0) mmol/L Anion Gap 8.8 BUN 9 D (7-18) mg/dL Creatinine 0.5 L (0.6-1.3) mg/dL Est Cr Clr Drug Dosing TNP Estimated GFR (MDRD) > 60 BUN/Creatinine Ratio 18.00 Glucose 124 H (74-105) mg/dL POC Glucose 84 (83-110) mg/dl Calcium 7.6 L (8.4-10.2) mg/dl Total Bilirubin 0.8 (0.2-1.0) mg/dL AST 20 (10-42) IU/L ALT 14 (10-60) IU/L Alkaline Phosphatase 86 (42-121) IU/L B-Natriuretic Peptide 40 (0-100) pg/ml Total Protein 5.5 L (6.7-8.2) g/dl Albumin 2.5 L (3.2-5.5) g/dl Globulin 3.0 Albumin/Globulin Ratio 0.83 Urine Color (YELLOW) Urine Appearance (CLEAR) Urine pH (5.0-9.0) Ur Specific [place] (1.005-1.030) Urine Protein (NEGATIVE) Urine Glucose (UA) (NEGATIVE) Urine Ketones (NEGATIVE) Urine Occult Blood (NEGATIVE) Urine Nitrite (NEGATIVE) Urine Bilirubin (NEGATIVE) Urine Urobilinogen (0.2-1.0) mg/dL Ur Leukocyte Esterase (NEGATIVE) 11/16/18 Range/Units 08:25 WBC (5.0-10.0) 10^3/uL RBC (4.2-5.4) 10^6/uL Hgb (12.0-16.0) g/dL Hct (37.0-47.0) % MCV (80-100) fL MCH (27.0-34.0) pg MCHC (33.0-35.0) g/dL Plt Count (150-450) 10^3/uL Neut % (Auto) (42.2-75.2) % Lymph % (Auto) (20.5-50.1) % [place] % (Auto) (2-8) % Eos % (Auto) (1.0-3.0) % Baso % (Auto) (0.0-1.0) % Sodium (135-145) mmol/L Potassium (3.6-5.0) mmol/L Chloride (101-111) mmol/L Carbon Dioxide (21.0-31.0) mmol/L Anion Gap BUN (7-18) mg/dL Creatinine (0.6-1.3) mg/dL Est Cr Clr Drug Dosing Estimated GFR (MDRD) BUN/Creatinine Ratio Glucose (74-105) mg/dL POC Glucose (83-110) mg/dl Calcium (8.4-10.2) mg/dl Total Bilirubin (0.2-1.0) mg/dL AST (10-42) IU/L ALT (10-60) IU/L Alkaline Phosphatase (42-121) IU/L B-Natriuretic Peptide (0-100) pg/ml Total Protein (6.7-8.2) g/dl Albumin (3.2-5.5) g/dl Globulin Albumin/Globulin Ratio Urine Color Yellow (YELLOW) Urine Appearance Clear (CLEAR) Urine pH 6.0 (5.0-9.0) Ur Specific [place] 1.010 (1.005-1.030) Urine Protein Negative (NEGATIVE) Urine Glucose (UA) Negative (NEGATIVE) Urine Ketones Negative (NEGATIVE) Urine Occult Blood Negative (NEGATIVE) Urine Nitrite Negative (NEGATIVE) Urine Bilirubin Negative (NEGATIVE) Urine Urobilinogen 0.2 (0.2-1.0) mg/dL Ur Leukocyte Esterase Negative (NEGATIVE) Meds: Medications Generic Name Dose Route Start Last Admin Trade Name Freq PRN Reason Stop Dose Admin Dextrose/Sodium Chloride 1,000 mls @ 150 mls/hr 11/16/18 08:15 11/16/18 08:09 Dextrose 5%-1/2 Ns IV 150 mls/hr ASDIRECTED CONNER Administration Potassium Chloride 10 meq/ 100 mls @ 100 mls/hr 11/16/18 08:41 Premix IV 11/16/18 09:40 ONETIME ONE Discontinued Medications Generic Name Dose Route Start Last Admin Trade Name Freq PRN Reason Stop Dose Admin Dextrose/Water 50 ml 11/16/18 08:03 11/16/18 08:08 Dextrose 50% In Water IVPUSH 11/16/18 08:04 50 ml ONETIME ONE Administration Lidocaine HCl 1 ml 11/16/18 08:42 Xylocaine-Mpf 1% INJECT 11/16/18 08:43 ONETIME ONE Potassium Chloride 40 meq 11/16/18 08:42 Klor-Con 10 PO 11/16/18 08:43 ONETIME ONE Departure - Departure Time of Disposition: 08:58 (admitted to Dr. Schmidt) Disposition: Refer to Observation Condition: Fair Clinical Impression: Hypoglycemia due to type 2 diabetes mellitus, Hypokalemia, Chronic anemia - Discharge Information *PRESCRIPTION DRUG MONITORING PROGRAM REVIEWED*: Not Applicable *COPY OF PRESCRIPTION DRUG MONITORING REPORT IN PATIENT SANDHYA: Not Applicable Forms: ED Department Discharge - My Orders Last 24 Hours: My Active Orders 11/16/18 08:01 Blood Glucose Check, Bedside [RC] ONETIME 11/16/18 08:15 Dextrose 5%-0.45% NaCl [Dextrose 5%-1/2 NS] 1,000 ml IV ASDIRECTED 11/16/18 08:41 Potassium Chloride [KCl 10 MEQ in Water 100 ML] 10 meq Premix Bag 1 bag IV ONETIME - Assessment/Plan Last 24 Hours: My Active Orders 11/16/18 08:01 Blood Glucose Check, Bedside [RC] ONETIME 11/16/18 08:15 Dextrose 5%-0.45% NaCl [Dextrose 5%-1/2 NS] 1,000 ml IV ASDIRECTED 11/16/18 08:41 Potassium Chloride [KCl 10 MEQ in Water 100 ML] 10 meq Premix Bag 1 bag IV ONETIME
[2018-11-16] MEDS ORDERED: 50% Dextrose in Water 50 ML Syringe IVPUSH ONE ×2 (08:03→21:15)
[2018-11-16] MEDS ORDERED: Dextrose 5%-0.45% NaCl 1,000 ML IV SCH (08:15)
[2018-11-16 08:36] LABS: ANION GAP 8.8; CHLORIDE,CL 110 mmol/L (101-111); SODIUM,NA 139 mmol/L (135-145)
[2018-11-16] MEDS ORDERED: Potassium Chloride 10 MEQ in Premix Bag 1 BAG IV ONE (08:41)
[2018-11-16] MEDS ORDERED: Potassium Chloride 10 MEQ Tab.ER PO ONE (08:42)
[2018-11-16] MEDS ORDERED: Lidocaine 1% 30 ML SDV INJECT ONE (08:42)
[2018-11-16] MEDS ORDERED: Dextrose 5%-0.9% NaCl with KCl 1,000 ML IV SCH (10:15)
[2018-11-16] MEDS: Potassium Chloride 10 MEQ Tab.ER PO SCH ×3 (11:03→17:30)
[2018-11-16] MEDS: Insulin Lispro 100 Units/ML 3 ML Vial SUBCUT SCH ×3 (11:50→21:15)
--- NOTE | 2018-11-16 12:03 | PCM.HP ---
H&P History of Present Illness - General Date of Service: 11/16/18 Admit Problem/Dx: Admission Diagnosis/Problem Admission Diagnosis/Problem Hypoglycemia associated with diabetes Source of Information: Patient - History of Present Illness Initial Comments - Free Text/Narative: 73-year-old lady who was recently hospitalized for an acute GI bleed. The patient has a history of diabetes. Has been on metformin and glyburide. It appears that the patient's glyburide was changed from once a day to twice a day during last hospital stay. She was discharged a few days ago. On the morning of the admission the patient was noted to have confusion Her blood sugars were low in the 50s. When EMS arrived they gave dextrose and the patient's mental status improved. She was transferred to the emergency room but even after data blood sugars were dipping She was given IV dextrose infusion. She is feeling better now Right Knee Pain Score (Numeric/FACES): 5 - Related Data Allergies/Adverse Reactions: Allergies Allergy/AdvReac Type Severity Reaction Status Date / Time Iodinated Contrast Media Allergy Hives Verified 11/16/18 09:58 [Iodinated Contrast Media - IV Dye] lisinopril Allergy Cough Verified 11/16/18 09:58 saxagliptin Allergy Cannot Verified 11/16/18 09:58 Remember shellfish derived Allergy Hives Verified 11/16/18 09:58 LISINOPRIL-HYDROCHLOROTHIAZIDE Allergy Other Uncoded 11/16/18 09:58 Home Medications: Home Meds Acetaminophen 1,000 mg PO Q4H PRN 09/19/14 [History] Aspirin [Halfprin] 81 mg PO DAILY 09/19/14 [History] Metoprolol Tartrate [Lopressor] 12.5 mg PO BID 10/14/17 [History] metFORMIN [Glucophage] 1,000 mg PO BIDMEALS 10/14/17 [History] glyBURIDE [Glyburide] 5 mg PO BID 04/26/18 [History] Amoxicillin/Clavulanate K [Augmentin 875-125 MG] 1 tab PO BID 11/16/18 [History] Amoxicillin/Potassium Clav [Amox-Clav 875-125 mg Tablet] 1 tab PO BID 11/16/18 [ History] Famotidine 20 mg PO BID 11/16/18 [History] Fluconazole [Diflucan] 200 mg PO DAILY 11/16/18 [History] Pantoprazole [ProTONIX] 40 mg PO BID 11/16/18 [History] Sucralfate [Carafate] 1 gram PO QID 11/16/18 [History] Past Medical History HEENT History: Reports: Allergic Rhinitis, Impaired Vision Cardiovascular History: Reports: Hypertension Other Cardiovascular History: ?TIA vs neuritis pain left face. 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 Degenerative disc disease Neurological History: Other Neuro History: [place] Left side face since Psychiatric History: Reports: Other (See Below) Other Psychiatric History: history of alcohol abuse. Endocrine/Metabolic History: Reports: Diabetes, Type II, Obesity/BMI 30+ Other Endocrine/Metabolic History: OSTEOARTHRITIS, right knee Hematologic History: Reports: Anemia, Iron Deficiency, Other (See Below) Other Hematologic History: Hypoalbumenia Immunologic History: Reports: None Oncologic (Cancer) History: Reports: None Dermatologic History: Reports: None - Infectious Disease History Infectious Disease History: Reports: Chicken Pox, Measles, Mumps - Past Surgical History Head Surgeries/Procedures: Reports: None HEENT Surgical History: Reports: Cataract Surgery Cardiovascular Surgical History: Reports: None Respiratory Surgical History: Reports: None GI Surgical History: Reports: Appendectomy, Cholecystectomy, Colonoscopy, Polypectomy Female Surgical History: Reports: Section Endocrine Surgical History: Reports: None Musculoskeletal Surgical History: Reports: Other (See Below) Other Musculoskeletal Surgeries/Procedures:: bilateral shoulder surgery Oncologic Surgical History: Reports: None Dermatological Surgical History: Reports: None Social & Family History - Family History Family Medical History: Noncontributory - Tobacco Use Smoking Status *Q: Current Some Day Smoker Years of Tobacco use: 30 Packs/Tins Daily: 0.2 - Caffeine Use Caffeine Use: Reports: Coffee, Tea Caffeine Use Comment: 32oz coffee. 8 oz daily tea - Recreational Drug Use Recreational Drug Use: No - Living Situation & Occupation Living situation: Reports: with Family Occupation: Retired H&P Review of Systems - Review of Systems: Review Of Systems: See Below General: Reports: Chills. Denies: Fever Pulmonary: Denies: Shortness of Breath Cardiovascular: Reports: Edema. Denies: Chest Pain Gastrointestinal: Denies: Abdominal Pain Genitourinary: Denies: Dysuria Neurological: Reports: Confusion Exam - Exam Exam: See Below - Vital Signs Vital Signs: Last Vital Signs Temp 36.2 C 11/16/18 09:28 Pulse 88 11/16/18 09:28 Resp 20 11/16/18 09:28 BP 124/80 11/16/18 09:28 Pulse Ox 100 11/16/18 09:28 Weight: 94.71 kg - Exam General: Alert, Oriented Neck: Supple Lungs: Clear to Auscultation, Normal Respiratory Effort Cardiovascular: Regular Rate, Regular Rhythm GI/Abdominal Exam: Normal Bowel Sounds, Soft, Non-Tender Extremities: Pedal Edema (2+) - Patient Data Lab Results Last 24 hrs: Laboratory Results - last 24 hr 11/16/18 11/16/18 11/16/18 Range/Units 08:02 08:10 08:10 WBC 8.0 (5.0-10.0) 10^3/uL RBC 3.20 L (4.2-5.4) 10^6/uL Hgb 7.9 L D (12.0-16.0) g/dL Hct 25.7 L (37.0-47.0) % MCV 80.3 D (80-100) fL MCH 24.7 L (27.0-34.0) pg MCHC 30.7 L (33.0-35.0) g/dL Plt Count 209 (150-450) 10^3/uL Neut % (Auto) 85.1 H (42.2-75.2) % Lymph % (Auto) 6.4 L (20.5-50.1) % Fisher % (Auto) 8.1 H (2-8) % Eos % (Auto) 0.1 L (1.0-3.0) % Baso % (Auto) 0.3 (0.0-1.0) % Sodium 139 (135-145) mmol/L Potassium 2.8 L D (3.6-5.0) mmol/L Chloride 110 (101-111) mmol/L Carbon Dioxide 23.0 (21.0-31.0) mmol/L Anion Gap 8.8 BUN 9 D (7-18) mg/dL Creatinine 0.5 L (0.6-1.3) mg/dL Est Cr Clr Drug Dosing TNP Estimated GFR (MDRD) > 60 BUN/Creatinine Ratio 18.00 Glucose 124 H (74-105) mg/dL POC Glucose 84 (83-110) mg/dl Calcium 7.6 L (8.4-10.2) mg/dl Total Bilirubin 0.8 (0.2-1.0) mg/dL AST 20 (10-42) IU/L ALT 14 (10-60) IU/L Alkaline Phosphatase 86 (42-121) IU/L B-Natriuretic Peptide 40 (0-100) pg/ml Total Protein 5.5 L (6.7-8.2) g/dl Albumin 2.5 L (3.2-5.5) g/dl Globulin 3.0 Albumin/Globulin Ratio 0.83 Urine Color (YELLOW) Urine Appearance (CLEAR) Urine pH (5.0-9.0) Ur Specific [place] (1.005-1.030) Urine Protein (NEGATIVE) Urine Glucose (UA) (NEGATIVE) Urine Ketones (NEGATIVE) Urine Occult Blood (NEGATIVE) Urine Nitrite (NEGATIVE) Urine Bilirubin (NEGATIVE) Urine Urobilinogen (0.2-1.0) mg/dL Ur Leukocyte Esterase (NEGATIVE) 11/16/18 11/16/18 11/16/18 Range/Units 08:25 08:58 11:33 WBC (5.0-10.0) 10^3/uL RBC (4.2-5.4) 10^6/uL Hgb (12.0-16.0) g/dL Hct (37.0-47.0) % MCV (80-100) fL MCH (27.0-34.0) pg MCHC (33.0-35.0) g/dL Plt Count (150-450) 10^3/uL Neut % (Auto) (42.2-75.2) % Lymph % (Auto) (20.5-50.1) % Fisher % (Auto) (2-8) % Eos % (Auto) (1.0-3.0) % Baso % (Auto) (0.0-1.0) % Sodium (135-145) mmol/L Potassium (3.6-5.0) mmol/L Chloride (101-111) mmol/L Carbon Dioxide (21.0-31.0) mmol/L Anion Gap BUN (7-18) mg/dL Creatinine (0.6-1.3) mg/dL Est Cr Clr Drug Dosing Estimated GFR (MDRD) BUN/Creatinine Ratio Glucose (74-105) mg/dL POC Glucose 131 H 108 (83-110) mg/dl Calcium (8.4-10.2) mg/dl Total Bilirubin (0.2-1.0) mg/dL AST (10-42) IU/L ALT (10-60) IU/L Alkaline Phosphatase (42-121) IU/L B-Natriuretic Peptide (0-100) pg/ml Total Protein (6.7-8.2) g/dl Albumin (3.2-5.5) g/dl Globulin Albumin/Globulin Ratio Urine Color Yellow (YELLOW) Urine Appearance Clear (CLEAR) Urine pH 6.0 (5.0-9.0) Ur Specific [place] 1.010 (1.005-1.030) Urine Protein Negative (NEGATIVE) Urine Glucose (UA) Negative (NEGATIVE) Urine Ketones Negative (NEGATIVE) Urine Occult Blood Negative (NEGATIVE) Urine Nitrite Negative (NEGATIVE) Urine Bilirubin Negative (NEGATIVE) Urine Urobilinogen 0.2 (0.2-1.0) mg/dL Ur Leukocyte Esterase Negative (NEGATIVE) Result Diagrams: 11/16/18 08:10 11/16/18 08:10 - Problem List (1) Acute encephalopathy SNOMED Code(s): 91918986, 606978223 ICD Code: G93.40 - ENCEPHALOPATHY, UNSPECIFIED Status: Acute Current Visit: Yes (2) Hypoglycemia due to type 2 diabetes mellitus SNOMED Code(s): 624664177885644, 167823149780262 ICD Code: E11.649 - TYPE 2 DIABETES MELLITUS WITH HYPOGLYCEMIA WITHOUT COMA Status: Acute Current Visit: No (3) Hypokalemia SNOMED Code(s): 74178839 ICD Code: E87.6 - HYPOKALEMIA Status: Acute Current Visit: No Problem List Initiated/Reviewed/Updated: Yes Orders Last 24hrs: Active Orders 24 hr Category Date Time Status Admission Diagnosis [ADT] Routine ADT 11/16/18 09:19 Ordered Admission Status [Patient Status] [ADT] Routine ADT 11/16/18 09:15 Active Blood Glucose Check, Bedside [RC] ONETIME Care 11/16/18 08:01 Active Blood Glucose Check, Bedside [RC] ONETIME Care 11/16/18 09:00 Active Glucose [Blood Glucose Check, Bedside] [RC] QIDACANDBED Care 11/16/18 10:08 Active BASIC METABOLIC PANEL,BMP [CHEM] AM Lab 11/17/18 05:15 Ordered BASIC METABOLIC PANEL,BMP [CHEM] Timed Lab 11/16/18 14:00 Ordered CBC WITH AUTO DIFF [HEME] AM Lab 11/17/18 05:15 Ordered Acetaminophen [Tylenol] Med 11/16/18 10:10 Active 650 mg PO Q4H PRN Amoxicillin/Clavulanate K [Augmentin 875 MG/125 MG] Med 11/16/18 21:00 Ordered 1 tab PO BID Aspirin [Halfprin] Med 11/17/18 09:00 Active 81 mg PO DAILY Dextrose 5%-0.9% NaCl with KCl [D5 NS with 20 mEq KCl] Med 11/16/18 10:15 Active 1,000 ml IV ASDIRECTED Dextrose 50% in Water Med 11/16/18 10:09 Active 25 ml IVPUSH Q1H PRN Famotidine [Pepcid] Med 11/16/18 21:00 Ordered 20 mg PO BID Fluconazole [Diflucan] Med 11/17/18 09:00 Ordered 200 mg PO DAILY Insulin Lispro [HumaLOG] Med 11/16/18 11:00 Active See Protocol SUBCUT ACBED Metoprolol Tartrate [Lopressor] Med 11/16/18 21:00 Ordered 12.5 mg PO BID Pantoprazole [ProTONIX] Med 11/16/18 21:00 Ordered 40 mg PO BID Potassium Chloride [Klor-Con 10] Med 11/16/18 10:45 Active 20 meq PO TIDMEALS Sucralfate [Carafate] Med 11/16/18 13:00 Ordered 1 gm PO QID glyBURIDE [Micronase] Med 11/17/18 09:00 Ordered 5 mg PO DAILY Medication Orders Acetaminophen (Tylenol) 650 mg PO Q4H PRN PRN Reason: Pain Amoxicillin/Clavulanate Potassium (Augmentin 875 Mg/125 Mg) 1 tab PO BID [facility] Aspirin (Halfprin) 81 mg PO DAILY [facility] Dextrose/Water (Dextrose 50% In Water) 25 ml IVPUSH Q1H PRN PRN Reason: blood sugar <70 Famotidine (Pepcid) 20 mg PO BID [facility] Glyburide (Micronase) 5 mg PO DAILY [facility] Potassium Chloride/Dextrose/Sod Cl (D5 Ns With 20 Meq Kcl) 1,000 mls @ 75 mls/ hr IV ASDIRECTED [facility] Last Admin: 11/16/18 11:03 Dose: 75 mls/hr Insulin Human Lispro (Humalog) 0 unit SUBCUT ACBED [facility]; Protocol Last Admin: 11/16/18 11:50 Dose: Not Given Metoprolol Tartrate (Lopressor) 12.5 mg PO BID [facility] Non-Formulary Medication (Fluconazole [Diflucan]) 200 mg PO DAILY [facility] Pantoprazole Sodium (Protonix) 40 mg PO BID [facility] Potassium Chloride (Klor-Con 10) 20 meq PO TIDMEALS [facility] Stop: 11/16/18 17:01 Last Admin: 11/16/18 11:03 Dose: 20 meq Sucralfate (Carafate) 1 gm PO QID [facility]
[2018-11-16] MEDS ORDERED: Ondansetron 4 MG Tab.DIS PO PRN (13:11)
[2018-11-16] MEDS ORDERED: Zolpidem 5 MG Tab PO PRN (13:11)
[2018-11-16] MEDS: Heparin Sodium 5,000 Units/ML Vial SUBCUT SCH ×2 (14:26→21:20)
[2018-11-16] MEDS: Iron Polysaccharides Complex 150 MG Cap PO SCH (14:27)
[2018-11-16] MEDS: AMOXICILLIN PO SCH ×2 (14:27→21:17)
[2018-11-16] MEDS: CLAVULANATE K PO SCH ×2 (14:27→21:17)
[2018-11-16] MEDS: Furosemide 20 MG Tab PO SCH (14:28)
[2018-11-16] MEDS: SUCRALFATE 1 GM PO SCH ×3 (14:29→21:17)
[2018-11-16] MEDS: FLUCONAZOLE 200 MG PO SCH (14:30)
[2018-11-16 14:44] LABS: ANION GAP 10.7; CHLORIDE,CL 114 mmol/L (101-111); SODIUM,NA 143 mmol/L (135-145)
[2018-11-16] MEDS: 50% Dextrose in Water 50 ML Syringe IVPUSH PRN ×6 (14:50→22:26)
[2018-11-16] MEDS: PANTOPRAZOLE 40 MG PO SCH (16:28)
[2018-11-16] MEDS ORDERED: METOPROLOL TARTRATE 25 MG PO SCH (21:00)
[2018-11-16] MEDS ORDERED: Dextrose 10% in Water 1,000 ML IV SCH (21:15)
[2018-11-16] MEDS: FAMOTIDINE 20 MG PO SCH (21:16)
[2018-11-16] MEDS: Dextrose 10% in Water 500 ML ONE ×2 (21:19→21:37)
[2018-11-17] MEDS: 50% Dextrose in Water 50 ML Syringe IVPUSH PRN (00:10)
[2018-11-17] MEDS: PANTOPRAZOLE 40 MG PO SCH ×2 (06:02→17:08)
[2018-11-17] MEDS: Heparin Sodium 5,000 Units/ML Vial SUBCUT SCH ×3 (06:04→21:14)
[2018-11-17 06:49] LABS: ANION GAP 7.8; CHLORIDE,CL 112 mmol/L (101-111); SODIUM,NA 141 mmol/L (135-145)
[2018-11-17] MEDS: AMOXICILLIN PO SCH ×2 (08:13→21:04)
[2018-11-17] MEDS: Potassium Chloride 10 MEQ Tab.ER PO SCH (08:13)
[2018-11-17] MEDS: CLAVULANATE K PO SCH ×2 (08:13→21:04)
[2018-11-17] MEDS: Aspirin 81 MG Tab.EC **PT OWN MED PO SCH (08:14)
[2018-11-17] MEDS: Iron Polysaccharides Complex 150 MG Cap PO SCH (08:14)
[2018-11-17] MEDS: SUCRALFATE 1 GM PO SCH ×4 (08:14→21:03)
[2018-11-17] MEDS: METOPROLOL TARTRATE 25 MG PO SCH (08:14)
[2018-11-17] MEDS: Dextrose 10% in Water 500 ML ONE ×3 (08:15→11:45)
[2018-11-17] MEDS: FAMOTIDINE 20 MG PO SCH ×2 (08:16→21:05)
[2018-11-17] MEDS: Furosemide 20 MG Tab PO SCH (08:16)
[2018-11-17] MEDS ORDERED: Dextrose 10% in Water 500 ML IV SCH (08:26)
[2018-11-17] MEDS ORDERED: GLYBURIDE 5 MG PO SCH (09:00)
[2018-11-17] MEDS: Insulin Lispro 100 Units/ML 3 ML Vial SUBCUT SCH ×5 (10:04→21:06)
[2018-11-17] MEDS: FLUCONAZOLE 200 MG PO SCH (10:15)
--- NOTE | 2018-11-17 11:04 | PCM.PN ---
- General Info Date of Service: 11/17/18 Admission Dx/Problem (Free Text): Admission Diagnosis/Problem Admission Diagnosis/Problem Hypoglycemia associated with diabetes Subjective Update: Last evening the patient continued to have severe but asymptomatic hypoglycemia below 40. Received multiple doses of D50. Started on D5 later on D10 IV fluids. Was no associated confusion. Low-grade temperature noted. No shortness of breath , no chest pain. By this morning the blood sugars are better. She ate a good breakfast. She is feeling well. Functional Status: Reports: Pain Controlled, Tolerating Diet - Review of Systems General: Reports: Fever (Low-grade temp of 37.5 noted) Pulmonary: Denies: Shortness of Breath Cardiovascular: Denies: Chest Pain Genitourinary: Denies: Dysuria Neurological: Denies: Confusion - Patient Data Vitals - Most Recent: Last Vital Signs Temp 37.3 C 11/17/18 07:55 Pulse 75 11/17/18 08:14 Resp 14 11/17/18 07:55 BP 114/48 L 11/17/18 08:14 Pulse Ox 100 11/17/18 07:55 Weight - Most Recent: 94.71 kg I&O - Last 24 Hours: Intake & Output 11/16/18 11/17/18 11/17/18 22:59 06:59 14:59 Intake Total 1604 1482 325 Output Total 1800 150 Balance -196 1332 325 Lab Results Last 24 Hours: Laboratory Results - last 24 hr 11/16/18 11/16/18 11/16/18 Range/Units 11:33 14:07 14:49 WBC (5.0-10.0) 10^3/uL RBC (4.2-5.4) 10^6/uL Hgb (12.0-16.0) g/dL Hct (37.0-47.0) % MCV (80-100) fL MCH (27.0-34.0) pg MCHC (33.0-35.0) g/dL Plt Count (150-450) 10^3/uL Neut % (Auto) (42.2-75.2) % Lymph % (Auto) (20.5-50.1) % [place] % (Auto) (2-8) % Eos % (Auto) (1.0-3.0) % Baso % (Auto) (0.0-1.0) % Sodium 143 (135-145) mmol/L Potassium 3.7 (3.6-5.0) mmol/L Chloride 114 H (101-111) mmol/L Carbon Dioxide 22.0 (21.0-31.0) mmol/L Anion Gap 10.7 BUN 7 (7-18) mg/dL Creatinine 0.4 L (0.6-1.3) mg/dL Est Cr Clr Drug Dosing 106.71 mL/min Estimated GFR (MDRD) > 60 Glucose 49 L* (74-105) mg/dL POC Glucose 108 43 L* (83-110) mg/dl Calcium 7.8 L (8.4-10.2) mg/dl 11/16/18 11/16/18 11/16/18 Range/Units 15:40 16:19 16:44 WBC (5.0-10.0) 10^3/uL RBC (4.2-5.4) 10^6/uL Hgb (12.0-16.0) g/dL Hct (37.0-47.0) % MCV (80-100) fL MCH (27.0-34.0) pg MCHC (33.0-35.0) g/dL Plt Count (150-450) 10^3/uL Neut % (Auto) (42.2-75.2) % Lymph % (Auto) (20.5-50.1) % [place] % (Auto) (2-8) % Eos % (Auto) (1.0-3.0) % Baso % (Auto) (0.0-1.0) % Sodium (135-145) mmol/L Potassium (3.6-5.0) mmol/L Chloride (101-111) mmol/L Carbon Dioxide (21.0-31.0) mmol/L Anion Gap BUN (7-18) mg/dL Creatinine (0.6-1.3) mg/dL Est Cr Clr Drug Dosing mL/min Estimated GFR (MDRD) Glucose (74-105) mg/dL POC Glucose 49 L* 55 L 43 L* (83-110) mg/dl Calcium (8.4-10.2) mg/dl 11/16/18 11/16/18 11/16/18 Range/Units 17:53 18:49 20:55 WBC (5.0-10.0) 10^3/uL RBC (4.2-5.4) 10^6/uL Hgb (12.0-16.0) g/dL Hct (37.0-47.0) % MCV (80-100) fL MCH (27.0-34.0) pg MCHC (33.0-35.0) g/dL Plt Count (150-450) 10^3/uL Neut % (Auto) (42.2-75.2) % Lymph % (Auto) (20.5-50.1) % [place] % (Auto) (2-8) % Eos % (Auto) (1.0-3.0) % Baso % (Auto) (0.0-1.0) % Sodium (135-145) mmol/L Potassium (3.6-5.0) mmol/L Chloride (101-111) mmol/L Carbon Dioxide (21.0-31.0) mmol/L Anion Gap BUN (7-18) mg/dL Creatinine (0.6-1.3) mg/dL Est Cr Clr Drug Dosing mL/min Estimated GFR (MDRD) Glucose (74-105) mg/dL POC Glucose 56 L 70 L 35 L* (83-110) mg/dl Calcium (8.4-10.2) mg/dl 11/16/18 11/16/18 11/16/18 Range/Units 21:57 22:55 23:59 WBC (5.0-10.0) 10^3/uL RBC (4.2-5.4) 10^6/uL Hgb (12.0-16.0) g/dL Hct (37.0-47.0) % MCV (80-100) fL MCH (27.0-34.0) pg MCHC (33.0-35.0) g/dL Plt Count (150-450) 10^3/uL Neut % (Auto) (42.2-75.2) % Lymph % (Auto) (20.5-50.1) % [place] % (Auto) (2-8) % Eos % (Auto) (1.0-3.0) % Baso % (Auto) (0.0-1.0) % Sodium (135-145) mmol/L Potassium (3.6-5.0) mmol/L Chloride (101-111) mmol/L Carbon Dioxide (21.0-31.0) mmol/L Anion Gap BUN (7-18) mg/dL Creatinine (0.6-1.3) mg/dL Est Cr Clr Drug Dosing mL/min Estimated GFR (MDRD) Glucose (74-105) mg/dL POC Glucose 68 L 109 65 L (83-110) mg/dl Calcium (8.4-10.2) mg/dl 11/17/18 11/17/18 11/17/18 Range/Units 01:03 01:59 03:02 WBC (5.0-10.0) 10^3/uL RBC (4.2-5.4) 10^6/uL Hgb (12.0-16.0) g/dL Hct (37.0-47.0) % MCV (80-100) fL MCH (27.0-34.0) pg MCHC (33.0-35.0) g/dL Plt Count (150-450) 10^3/uL Neut % (Auto) (42.2-75.2) % Lymph % (Auto) (20.5-50.1) % [place] % (Auto) (2-8) % Eos % (Auto) (1.0-3.0) % Baso % (Auto) (0.0-1.0) % Sodium (135-145) mmol/L Potassium (3.6-5.0) mmol/L Chloride (101-111) mmol/L Carbon Dioxide (21.0-31.0) mmol/L Anion Gap BUN (7-18) mg/dL Creatinine (0.6-1.3) mg/dL Est Cr Clr Drug Dosing mL/min Estimated GFR (MDRD) Glucose (74-105) mg/dL POC Glucose 126 H 130 H 121 H (83-110) mg/dl Calcium (8.4-10.2) mg/dl 11/17/18 11/17/18 11/17/18 Range/Units 04:01 05:01 05:59 WBC (5.0-10.0) 10^3/uL RBC (4.2-5.4) 10^6/uL Hgb (12.0-16.0) g/dL Hct (37.0-47.0) % MCV (80-100) fL MCH (27.0-34.0) pg MCHC (33.0-35.0) g/dL Plt Count (150-450) 10^3/uL Neut % (Auto) (42.2-75.2) % Lymph % (Auto) (20.5-50.1) % [place] % (Auto) (2-8) % Eos % (Auto) (1.0-3.0) % Baso % (Auto) (0.0-1.0) % Sodium (135-145) mmol/L Potassium (3.6-5.0) mmol/L Chloride (101-111) mmol/L Carbon Dioxide (21.0-31.0) mmol/L Anion Gap BUN (7-18) mg/dL Creatinine (0.6-1.3) mg/dL Est Cr Clr Drug Dosing mL/min Estimated GFR (MDRD) Glucose (74-105) mg/dL POC Glucose 97 122 H 118 H (83-110) mg/dl Calcium (8.4-10.2) mg/dl 11/17/18 11/17/18 11/17/18 Range/Units 06:20 06:20 06:53 WBC 6.7 (5.0-10.0) 10^3/uL RBC 2.96 L (4.2-5.4) 10^6/uL Hgb 7.3 L (12.0-16.0) g/dL Hct 24.1 L (37.0-47.0) % MCV 81.4 (80-100) fL MCH 24.7 L (27.0-34.0) pg MCHC 30.3 L (33.0-35.0) g/dL Plt Count 212 (150-450) 10^3/uL Neut % (Auto) 59.1 (42.2-75.2) % Lymph % (Auto) 20.1 L (20.5-50.1) % [place] % (Auto) 16.1 H (2-8) % Eos % (Auto) 4.1 H (1.0-3.0) % Baso % (Auto) 0.6 (0.0-1.0) % Sodium 141 (135-145) mmol/L Potassium 3.8 (3.6-5.0) mmol/L Chloride 112 H (101-111) mmol/L Carbon Dioxide 25.0 (21.0-31.0) mmol/L Anion Gap 7.8 BUN 6 L (7-18) mg/dL Creatinine 0.6 (0.6-1.3) mg/dL Est Cr Clr Drug Dosing 71.14 mL/min Estimated GFR (MDRD) > 60 Glucose 122 H (74-105) mg/dL POC Glucose 130 H (83-110) mg/dl Calcium 7.4 L (8.4-10.2) mg/dl 11/17/18 11/17/18 11/17/18 Range/Units 08:14 09:09 10:11 WBC (5.0-10.0) 10^3/uL RBC (4.2-5.4) 10^6/uL Hgb (12.0-16.0) g/dL Hct (37.0-47.0) % MCV (80-100) fL MCH (27.0-34.0) pg MCHC (33.0-35.0) g/dL Plt Count (150-450) 10^3/uL Neut % (Auto) (42.2-75.2) % Lymph % (Auto) (20.5-50.1) % [place] % (Auto) (2-8) % Eos % (Auto) (1.0-3.0) % Baso % (Auto) (0.0-1.0) % Sodium (135-145) mmol/L Potassium (3.6-5.0) mmol/L Chloride (101-111) mmol/L Carbon Dioxide (21.0-31.0) mmol/L Anion Gap BUN (7-18) mg/dL Creatinine (0.6-1.3) mg/dL Est Cr Clr Drug Dosing mL/min Estimated GFR (MDRD) Glucose (74-105) mg/dL POC Glucose 110 118 H 135 H (83-110) mg/dl Calcium (8.4-10.2) mg/dl Med Orders - Current: Current Medications Acetaminophen (Tylenol) 650 mg PO Q4H PRN PRN Reason: Pain Amoxicillin/Clavulanate Potassium (Augmentin 875 Mg/125 Mg) 1 tab PO BID [facility] Stop: 11/21/18 21:01 Last Admin: 11/17/18 08:13 Dose: 1 tab Aspirin (Halfprin) 81 mg PO DAILY [facility] Last Admin: 11/17/18 08:14 Dose: 81 mg Dextrose/Water (Dextrose 50% In Water) 50 ml IVPUSH ASDIRECTED PRN PRN Reason: Hypoglycemia Last Admin: 11/17/18 00:10 Dose: 50 ml Famotidine (Pepcid) 20 mg PO BID [facility] Last Admin: 11/17/18 08:16 Dose: 20 mg Furosemide (Lasix) 20 mg PO DAILY [facility] Last Admin: 11/17/18 08:16 Dose: 20 mg Heparin Sodium (Porcine) (Heparin Sodium) 5,000 units SUBCUT Q8HR [facility] Last Admin: 11/17/18 06:04 Dose: 5,000 units Dextrose/Water (Dextrose 10% In Water) 500 mls @ 25 mls/hr IV ASDIRECTED [facility] Last Admin: 11/17/18 08:29 Dose: 50 mls/hr Insulin Human Lispro (Humalog) 0 unit SUBCUT ACBED [facility]; Protocol Last Admin: 11/17/18 10:04 Dose: Not Given Metoprolol Tartrate (Lopressor) 12.5 mg PO DAILY [facility] Last Admin: 11/17/18 08:14 Dose: 12.5 mg Ondansetron HCl (Zofran Odt) 4 mg PO Q6H PRN PRN Reason: nausea, able to take PO Pantoprazole Sodium (Protonix) 40 mg PO BIDAC [facility] Last Admin: 11/17/18 06:02 Dose: 40 mg Fluconazole [ Diflucan] 200 Mg Pt's Own Med 0 each PO DAILY [facility] Stop: 12/02/18 09:01 Last Admin: 11/17/18 10:15 Dose: 1 each Polysaccharide Iron Complex (Ferrex 150) 150 mg PO DAILY [facility] Last Admin: 11/17/18 08:14 Dose: 150 mg Potassium Chloride (Klor-Con 10) 20 meq PO WITHBREAKFAST [facility] Last Admin: 11/17/18 08:13 Dose: 20 meq Sucralfate (Carafate) 1 gm PO QID [facility] Last Admin: 11/17/18 08:14 Dose: 1 gm Zolpidem Tartrate (Ambien) 5 mg PO BEDTIME PRN PRN Reason: Sleep Discontinued Medications Dextrose/Water (Dextrose 50% In Water) 50 ml IVPUSH ONETIME ONE Stop: 11/16/18 08:04 Last Admin: 11/16/18 08:08 Dose: 50 ml Dextrose/Water (Dextrose 50% In Water) 25 ml IVPUSH Q1H PRN PRN Reason: blood sugar <70 Last Admin: 11/16/18 18:53 Dose: 25 ml Dextrose/Water (Dextrose 50% In Water) 50 ml IVPUSH ONETIME ONE Stop: 11/16/18 21:16 Last Admin: 11/16/18 21:22 Dose: 50 ml Glyburide (Micronase) 5 mg PO DAILY [facility] Dextrose/Sodium Chloride (Dextrose 5%-1/2 Ns) 1,000 mls @ 75 mls/hr IV ASDIRECTED [facility] Last Admin: 11/16/18 08:09 Dose: 150 mls/hr Potassium Chloride 10 meq/ (Premix) 100 mls @ 100 mls/hr IV ONETIME ONE Stop: 11/16/18 09:40 Last Admin: 11/16/18 08:59 Dose: 100 mls/hr Potassium Chloride/Dextrose/Sod Cl (D5 Ns With 20 Meq Kcl) 1,000 mls @ 75 mls/ hr IV ASDIRECTED [facility] Last Admin: 11/16/18 11:03 Dose: 75 mls/hr Dextrose/Water (Dextrose 10% In Water) 1,000 mls @ 50 mls/hr IV ASDIRECTED [facility] Dextrose/Water (Dextrose 10% In Water) Confirm Administered Dose 500 mls @ as directed .ROUTE .STK-MED ONE Stop: 11/16/18 21:20 Last Admin: 11/16/18 21:37 Dose: 50 mls/hr Dextrose/Water (Dextrose 10% In Water) Confirm Administered Dose 500 mls @ as directed .ROUTE .STK-MED ONE Stop: 11/17/18 08:11 Lidocaine HCl (Xylocaine-Mpf 1%) 1 ml INJECT ONETIME ONE Stop: 11/16/18 08:43 Last Admin: 11/16/18 08:59 Dose: 1 ml Metoprolol Tartrate (Lopressor) 12.5 mg PO BID [facility] Potassium Chloride (Klor-Con 10) 40 meq PO ONETIME ONE Stop: 11/16/18 08:43 Last Admin: 11/16/18 08:56 Dose: 40 meq Potassium Chloride (Klor-Con 10) 20 meq PO TIDMEALS [facility] Stop: 11/16/18 17:01 Last Admin: 11/16/18 17:30 Dose: 20 meq - Exam General: Alert, Oriented Neck: Supple Lungs: Clear to Auscultation, Normal Respiratory Effort Cardiovascular: Regular Rate, Regular Rhythm GI/Abdominal Exam: Normal Bowel Sounds, Soft, Non-Tender Extremities: Pedal Edema - Problem List & Annotations (1) Acute encephalopathy SNOMED Code(s): 55942565, 644251910 Code(s): G93.40 - ENCEPHALOPATHY, UNSPECIFIED Status: Acute Current Visit : Yes (2) Hypoglycemia due to type 2 diabetes mellitus SNOMED Code(s): 067697155596534, 317413579829813 Code(s): E11.649 - TYPE 2 DIABETES MELLITUS WITH HYPOGLYCEMIA WITHOUT COMA Status: Acute Current Visit: No (3) Hypokalemia SNOMED Code(s): 16796887 Code(s): E87.6 - HYPOKALEMIA Status: Acute Current Visit: No - Problem List Review Problem List Initiated/Reviewed/Updated: Yes - My Orders Last 24 Hours: My Active Orders 11/16/18 10:10 Acetaminophen [Tylenol] 650 mg PO Q4H PRN 11/16/18 11:00 Insulin Lispro [HumaLOG] See Protocol SUBCUT ACBED 11/16/18 13:00 Furosemide [Lasix] 20 mg PO DAILY Sucralfate [Carafate] 1 gm PO QID 11/16/18 13:11 Patient Status [ADT] Routine Oxygen Therapy [RC] PRN Up With Assistance [RC] ASDIRECTED VTE/DVT Education [RC] PER UNIT ROUTINE Vital Signs [RC] Q4HR Ondansetron [Zofran ODT] 4 mg PO Q6H PRN Zolpidem [Ambien] 5 mg PO BEDTIME PRN Resuscitation Status Routine 11/16/18 13:12 Antiembolic Hose [OM.PC] Per Unit Routine 11/16/18 13:13 Antiembolic Devices [RC] PER UNIT ROUTINE 11/16/18 14:00 Amoxicillin/Clavulanate K [Augmentin 875 MG/125 MG] 1 tab PO BID Heparin Sodium 5,000 units SUBCUT Q8HR Patient's Own Medication [Ptom] 0 each PO DAILY 11/16/18 14:15 Iron Polysaccharides Complex [Ferrex 150] 150 mg PO DAILY 11/16/18 16:00 Pantoprazole [ProTONIX] 40 mg PO BIDAC 11/16/18 21:00 Blood Glucose Check, Bedside [RC] Q2HR Famotidine [Pepcid] 20 mg PO BID 11/16/18 22:00 Blood Glucose Check, Bedside [RC] Q1HR 11/16/18 22:04 Dextrose 50% in Water 50 ml IVPUSH ASDIRECTED PRN 11/16/18 Dinner Consistent Carbohydrate Diet [DIET] 11/17/18 08:00 Potassium Chloride [Klor-Con 10] 20 meq PO WITHBREAKFAST 11/17/18 08:26 Dextrose 10% in Water 500 ml IV ASDIRECTED 11/17/18 09:00 Aspirin [Halfprin] 81 mg PO DAILY Metoprolol Tartrate [Lopressor] 12.5 mg PO DAILY - Assessment Assessment:: Assessment and plan Acute metabolic encephalopathy secondary to hypoglycemia We'll monitor blood sugars Hypoglycemia Likely secondary to glyburide We'll hold Metformin Has received multiple doses of D50 Started D10 IV fluid Blood sugars finally improved Continue to hold metformin and glyburide We'll stop D10 Follow blood sugars every 2 hours for 4 hours Use supplemental insulin if needed Significant lower extremity edema started diuretics started K supplement Severe hypokalemia Replaced Recheck in am Recent GI bleed Continue treatment with proton pump inhibitor, sucralfate Acute blood loss anemia secondary to recent GI bleed started iron DVT prophylaxis will be with subcutaneous heparin
[2018-11-17] MEDS: Acetaminophen 325 MG Tab PO PRN (18:14)
[2018-11-18] MEDS: Acetaminophen 325 MG Tab PO PRN ×2 (03:02→08:58)
[2018-11-18] MEDS: Heparin Sodium 5,000 Units/ML Vial SUBCUT SCH (05:28)
[2018-11-18] MEDS: PANTOPRAZOLE 40 MG PO SCH (05:28)
[2018-11-18 07:56] LABS: CHLORIDE,CL 110 mmol/L (101-111); SODIUM,NA 141 mmol/L (135-145)
[2018-11-18 08:02] VITALS: BP 100/50
[2018-11-18] MEDS: Insulin Lispro 100 Units/ML 3 ML Vial SUBCUT SCH ×2 (08:04→12:05)
[2018-11-18] MEDS: AMOXICILLIN PO SCH (08:56)
[2018-11-18] MEDS: SUCRALFATE 1 GM PO SCH ×2 (08:56→12:26)
[2018-11-18] MEDS: Aspirin 81 MG Tab.EC **PT OWN MED PO SCH (08:56)
[2018-11-18] MEDS: CLAVULANATE K PO SCH (08:56)
[2018-11-18] MEDS: FAMOTIDINE 20 MG PO SCH (08:57)
[2018-11-18] MEDS: Iron Polysaccharides Complex 150 MG Cap PO SCH (08:57)
[2018-11-18] MEDS: METOPROLOL TARTRATE 25 MG PO SCH (08:57)
[2018-11-18] MEDS: Potassium Chloride 10 MEQ Tab.ER PO SCH (08:58)
[2018-11-18] MEDS: Furosemide 20 MG Tab PO SCH (08:58)
[2018-11-18] MEDS: FLUCONAZOLE 200 MG PO SCH (09:01)
--- NOTE | 2018-11-18 10:42 | PCM.DCSUM1 ---
Discharge Summary - Hospital Course Free Text/Narrative:: presented with confusion noted hypoglycemia Acute metabolic encephalopathy secondary to hypoglycemia resolved Hypoglycemia Likely secondary to glyburide Has received multiple doses of D50 Started D10 IV fluid Blood sugars finally improved Continue to metformin and stop glyburide will have BS diary at home and present to PMD to adjust Significant lower extremity edema started diuretics started K supplement Severe hypokalemia Replaced Recent GI bleed Continue treatment with proton pump inhibitor, sucralfate Acute blood loss anemia secondary to recent GI bleed started iron stable Diagnosis: Stroke: No - Discharge Data Discharge Date: 11/18/18 Discharge Disposition: Home, Self-Care 01 Condition: Stable - Discharge Diagnosis/Problem(s) (1) Acute encephalopathy SNOMED Code(s): 01259682, 551256489 ICD Code: G93.40 - ENCEPHALOPATHY, UNSPECIFIED Status: Acute Current Visit: Yes (2) Hypoglycemia due to type 2 diabetes mellitus SNOMED Code(s): 884561753761406, 697859856523010 ICD Code: E11.649 - TYPE 2 DIABETES MELLITUS WITH HYPOGLYCEMIA WITHOUT COMA Status: Acute Current Visit: No (3) Hypokalemia SNOMED Code(s): 87261456 ICD Code: E87.6 - HYPOKALEMIA Status: Acute Current Visit: No - Discharge Plan *PRESCRIPTION DRUG MONITORING PROGRAM REVIEWED*: Not Applicable *COPY OF PRESCRIPTION DRUG MONITORING REPORT IN PATIENT SANDHYA: Not Applicable Prescriptions/Med Rec: Furosemide [Lasix] 20 mg PO DAILY #30 tablet Iron Polysaccharides Complex [Ferrex 150] 150 mg PO DAILY #30 cap Potassium Chloride [Klor-Con 10] 20 meq PO WITHBREAKFAST #30 tab.er Home Medications: Home Meds Acetaminophen 1,000 mg PO Q4H PRN 09/19/14 [History] Aspirin [Halfprin] 81 mg PO DAILY 09/19/14 [History] Metoprolol Tartrate [Lopressor] 12.5 mg PO DAILY 10/14/17 [History] metFORMIN [Glucophage] 1,000 mg PO BIDMEALS 10/14/17 [History] Amoxicillin/Clavulanate K [Augmentin 875-125 MG] 1 tab PO BID 11/16/18 [History] Amoxicillin/Potassium Clav [Amox-Clav 875-125 mg Tablet] 1 tab PO BID 11/16/18 [ History] Famotidine 20 mg PO BID 11/16/18 [History] Fluconazole [Diflucan] 200 mg PO DAILY 11/16/18 [History] Pantoprazole [ProTONIX] 40 mg PO BID 11/16/18 [History] Sucralfate [Carafate] 1 gram PO QID 11/16/18 [History] Furosemide [Lasix] 20 mg PO DAILY #30 tablet 11/18/18 [Rx] Iron Polysaccharides Complex [Ferrex 150] 150 mg PO DAILY #30 cap 11/18/18 [Rx] Potassium Chloride [Klor-Con 10] 20 meq PO WITHBREAKFAST #30 tab.er 11/18/18 [Rx ] Oxygen Therapy Mode: Room Air - Discharge Summary/Plan Comment DC Time >30 min.: No - General Info Date of Service: 11/18/18 - Review of Systems General: Denies: Fever, Weakness Pulmonary: Denies: Shortness of Breath Cardiovascular: Denies: Chest Pain Gastrointestinal: Denies: Abdominal Pain - Patient Data Vitals - Most Recent: Last Vital Signs Temp 36.9 C 11/18/18 08:00 Pulse 67 11/18/18 08:57 Resp 18 11/18/18 08:00 BP 100/50 L 11/18/18 08:57 Pulse Ox 99 11/18/18 08:00 Weight - Most Recent: 94.71 kg I&O - Last 24 hours: Intake & Output 11/17/18 11/18/18 11/18/18 22:59 06:59 14:59 Intake Total 350 1060 Output Total 600 200 200 Balance -250 -200 860 Lab Results - Last 24 hrs: Laboratory Results - last 24 hr 11/17/18 11/17/18 11/17/18 Range/Units 11:01 11:53 16:46 WBC (5.0-10.0) 10^3/uL RBC (4.2-5.4) 10^6/uL Hgb (12.0-16.0) g/dL Hct (37.0-47.0) % MCV (80-100) fL MCH (27.0-34.0) pg MCHC (33.0-35.0) g/dL Plt Count (150-450) 10^3/uL Neut % (Auto) (42.2-75.2) % Lymph % (Auto) (20.5-50.1) % [place] % (Auto) (2-8) % Eos % (Auto) (1.0-3.0) % Baso % (Auto) (0.0-1.0) % Sodium (135-145) mmol/L Potassium (3.6-5.0) mmol/L Chloride (101-111) mmol/L Carbon Dioxide (21.0-31.0) mmol/L Anion Gap BUN (7-18) mg/dL Creatinine (0.6-1.3) mg/dL Est Cr Clr Drug Dosing mL/min Estimated GFR (MDRD) Glucose (74-105) mg/dL POC Glucose 138 H 132 H 183 H (83-110) mg/dl Calcium (8.4-10.2) mg/dl 11/17/18 11/18/18 11/18/18 Range/Units 21:06 07:20 07:20 WBC 5.6 (5.0-10.0) 10^3/uL RBC 3.06 L (4.2-5.4) 10^6/uL Hgb 7.5 L (12.0-16.0) g/dL Hct 24.9 L (37.0-47.0) % MCV 81.4 (80-100) fL MCH 24.5 L (27.0-34.0) pg MCHC 30.1 L (33.0-35.0) g/dL Plt Count 231 (150-450) 10^3/uL Neut % (Auto) 54.3 (42.2-75.2) % Lymph % (Auto) 23.8 (20.5-50.1) % [place] % (Auto) 13.9 H (2-8) % Eos % (Auto) 7.3 H (1.0-3.0) % Baso % (Auto) 0.7 (0.0-1.0) % Sodium 141 (135-145) mmol/L Potassium 4.0 (3.6-5.0) mmol/L Chloride 110 (101-111) mmol/L Carbon Dioxide 26.0 (21.0-31.0) mmol/L Anion Gap 9.0 BUN 7 (7-18) mg/dL Creatinine 0.6 (0.6-1.3) mg/dL Est Cr Clr Drug Dosing 71.14 mL/min Estimated GFR (MDRD) > 60 Glucose 104 (74-105) mg/dL POC Glucose 130 H (83-110) mg/dl Calcium 7.5 L (8.4-10.2) mg/dl 11/18/18 Range/Units 07:49 WBC (5.0-10.0) 10^3/uL RBC (4.2-5.4) 10^6/uL Hgb (12.0-16.0) g/dL Hct (37.0-47.0) % MCV (80-100) fL MCH (27.0-34.0) pg MCHC (33.0-35.0) g/dL Plt Count (150-450) 10^3/uL Neut % (Auto) (42.2-75.2) % Lymph % (Auto) (20.5-50.1) % [place] % (Auto) (2-8) % Eos % (Auto) (1.0-3.0) % Baso % (Auto) (0.0-1.0) % Sodium (135-145) mmol/L Potassium (3.6-5.0) mmol/L Chloride (101-111) mmol/L Carbon Dioxide (21.0-31.0) mmol/L Anion Gap BUN (7-18) mg/dL Creatinine (0.6-1.3) mg/dL Est Cr Clr Drug Dosing mL/min Estimated GFR (MDRD) Glucose (74-105) mg/dL POC Glucose 109 (83-110) mg/dl Calcium (8.4-10.2) mg/dl Med Orders - Current: Current Medications Acetaminophen (Tylenol) 650 mg PO Q4H PRN PRN Reason: Pain Last Admin: 11/18/18 08:58 Dose: 650 mg Amoxicillin/Clavulanate Potassium (Augmentin 875 Mg/125 Mg) 1 tab PO BID [facility] Stop: 11/21/18 21:01 Last Admin: 11/18/18 08:56 Dose: 1 tab Aspirin (Halfprin) 81 mg PO DAILY [facility] Last Admin: 11/18/18 08:56 Dose: 81 mg Dextrose/Water (Dextrose 50% In Water) 50 ml IVPUSH ASDIRECTED PRN PRN Reason: Hypoglycemia Last Admin: 11/17/18 00:10 Dose: 50 ml Famotidine (Pepcid) 20 mg PO BID [facility] Last Admin: 11/18/18 08:57 Dose: 20 mg Furosemide (Lasix) 20 mg PO DAILY [facility] Last Admin: 11/18/18 08:58 Dose: 20 mg Heparin Sodium (Porcine) (Heparin Sodium) 5,000 units SUBCUT Q8HR [facility] Last Admin: 11/18/18 05:28 Dose: 5,000 units Insulin Human Lispro (Humalog) 0 unit SUBCUT QIDACANDBED [facility]; Protocol Last Admin: 11/18/18 08:04 Dose: Not Given Metoprolol Tartrate (Lopressor) 12.5 mg PO DAILY [facility] Last Admin: 11/18/18 08:57 Dose: 12.5 mg Ondansetron HCl (Zofran Odt) 4 mg PO Q6H PRN PRN Reason: nausea, able to take PO Pantoprazole Sodium (Protonix) 40 mg PO BIDAC [facility] Last Admin: 11/18/18 05:28 Dose: 40 mg Fluconazole [ Diflucan] 200 Mg Pt's Own Med 0 each PO DAILY [facility] Stop: 12/02/18 09:01 Last Admin: 11/18/18 09:01 Dose: 1 each Polysaccharide Iron Complex (Ferrex 150) 150 mg PO DAILY [facility] Last Admin: 11/18/18 08:57 Dose: 150 mg Potassium Chloride (Klor-Con 10) 20 meq PO WITHBREAKFAST [facility] Last Admin: 11/18/18 08:58 Dose: 20 meq Sucralfate (Carafate) 1 gm PO QID [facility] Last Admin: 11/18/18 08:56 Dose: 1 gm Zolpidem Tartrate (Ambien) 5 mg PO BEDTIME PRN PRN Reason: Sleep Discontinued Medications Dextrose/Water (Dextrose 50% In Water) 50 ml IVPUSH ONETIME ONE Stop: 11/16/18 08:04 Last Admin: 11/16/18 08:08 Dose: 50 ml Dextrose/Water (Dextrose 50% In Water) 25 ml IVPUSH Q1H PRN PRN Reason: blood sugar <70 Last Admin: 11/16/18 18:53 Dose: 25 ml Dextrose/Water (Dextrose 50% In Water) 50 ml IVPUSH ONETIME ONE Stop: 11/16/18 21:16 Last Admin: 11/16/18 21:22 Dose: 50 ml Glyburide (Micronase) 5 mg PO DAILY [facility] Dextrose/Sodium Chloride (Dextrose 5%-1/2 Ns) 1,000 mls @ 75 mls/hr IV ASDIRECTED [facility] Last Admin: 11/16/18 08:09 Dose: 150 mls/hr Potassium Chloride 10 meq/ (Premix) 100 mls @ 100 mls/hr IV ONETIME ONE Stop: 11/16/18 09:40 Last Admin: 11/16/18 08:59 Dose: 100 mls/hr Potassium Chloride/Dextrose/Sod Cl (D5 Ns With 20 Meq Kcl) 1,000 mls @ 75 mls/ hr IV ASDIRECTED [facility] Last Admin: 11/16/18 11:03 Dose: 75 mls/hr Dextrose/Water (Dextrose 10% In Water) 1,000 mls @ 50 mls/hr IV ASDIRECTED [facility] Dextrose/Water (Dextrose 10% In Water) Confirm Administered Dose 500 mls @ as directed .ROUTE .STK-MED ONE Stop: 11/16/18 21:20 Last Admin: 11/16/18 21:37 Dose: 50 mls/hr Dextrose/Water (Dextrose 10% In Water) Confirm Administered Dose 500 mls @ as directed .ROUTE .STK-MED ONE Stop: 11/17/18 08:11 Last Admin: 11/17/18 11:45 Dose: Not Given Dextrose/Water (Dextrose 10% In Water) 500 mls @ 25 mls/hr IV ASDIRECTED [facility] Last Infusion: 11/17/18 16:30 Dose: Infused Insulin Human Lispro (Humalog) 0 unit SUBCUT ACBED [facility]; Protocol Last Admin: 11/17/18 16:25 Dose: Not Given Lidocaine HCl (Xylocaine-Mpf 1%) 1 ml INJECT ONETIME ONE Stop: 11/16/18 08:43 Last Admin: 11/16/18 08:59 Dose: 1 ml Metoprolol Tartrate (Lopressor) 12.5 mg PO BID [facility] Potassium Chloride (Klor-Con 10) 40 meq PO ONETIME ONE Stop: 11/16/18 08:43 Last Admin: 11/16/18 08:56 Dose: 40 meq Potassium Chloride (Klor-Con 10) 20 meq PO [facility]IDME[facility] [place] Stop: 11/16/18 17:01 Last Admin: 11/16/18 17:30 Dose: 20 meq - Exam General: Reports: Alert, Oriented Neck: Reports: Supple Lungs: Reports: Clear to Auscultation, Normal Respiratory Effort Cardiovascular: Reports: Regular Rate, Regular Rhythm GI/Abdominal Exam: Normal Bowel Sounds, Soft, Non-Tender Extremities: Pedal Edema Skin: Reports: Warm, Dry Psy/Mental Status: Reports: Alert, Normal Affect, Normal Mood
== END 2018-11-18 13:20 | disposition home or self-care (01) ==
LOC: DL.ED 08:00 → DL.MS 09:15
PROVIDERS: ADMIT Internal Medicine; ATTEND Internal Medicine
DX: E11.649 Type 2 diabetes mellitus with hypoglycemia without coma (principal); G93.41 Metabolic encephalopathy; R60.0 Localized edema; E87.6 Hypokalemia; K92.2 Gastrointestinal hemorrhage, unspecified; D62 Acute posthemorrhagic anemia; I10 Essential (primary) hypertension; M19.90 Unspecified osteoarthritis, unspecified site; E66.9 Obesity, unspecified; F17.210 Nicotine dependence, cigarettes, uncomplicated; Z79.82 Long term (current) use of aspirin; Z79.899 Other long term (current) drug therapy; Z79.84 Long term (current) use of oral hypoglycemic drugs; Z79.2 Long term (current) use of antibiotics; Z91.041 Radiographic dye allergy status; Z88.8 Allergy status to other drugs, medicaments and biological substances; Z91.013 Allergy to seafood; Z68.37 Body mass index [BMI] 37.0-37.9, adult
CPT/HCPCS: 36415; 80048; 80053; 81003; 82962; 83880; 85025; 96361; 96365; 96375; 99285; A9270; J1644; J1815; J2001; J3480; J7042; 96366; 96372; 96376; G0378; J7060

== ENCOUNTER 2019-01-21 14:25 | Emergency (ER) | payer MEDICARE, MEDICAID ==
[2019-01-21] MEDS ORDERED: Sodium Chloride 0.9% 10 ML Syringe FLUSH PRN (14:35)
[2019-01-21 14:41] VITALS: BP 104/47; PULSE 70
[2019-01-21] MEDS: Aspirin 81 MG Tab.Chew PO ONE (15:15)
[2019-01-21 15:23] LABS: ANION GAP 10.8; CHLORIDE,CL 110 mmol/L (101-111); SODIUM,NA 138 mmol/L (135-145)
--- NOTE | 2019-01-21 16:23 | EDM.PDOC ---
"Scribed by María Ramesh 01/21/19 1529 for Noelle Desai MD ED HPI GENERAL MEDICAL PROBLEM - General Chief Complaint: Chest Pain Stated Complaint: LEG PAIN Time Seen by Provider: 01/21/19 14:36 Source of Information: Reports: Patient, RN, RN Notes Reviewed History Limitations: Reports: No Limitations - History of Present Illness INITIAL COMMENTS - FREE TEXT/NARRATIVE: Patient presents to ER by POV stating that she fell on Wednesday and tripped on a rug. She hurt her right knee which was replaced last July. There is bruising to the anterior patella. Also she has right chest pain, localized to an area that she is able to point out at around the middle of the right breast. This pain is worse when she coughs. Denies any sputum production. She has been seen in [place], as she is doctoring with what sounds like GI for scopes due to anemia workup. She states was going to have a scope this week but ended up having a CT scan instead. She denies being lightheaded or dizzy and does use a cane and walker at home. She just tripped over rug. Not sure if the chest pain is related or not. Onset: Gradual Duration: Constant Location: Reports: Chest, Lower Extremity, Right Quality: Reports: Ache Severity: Moderate Improves with: Reports: None Worsens with: Reports: None Associated Symptoms: Reports: No Other Symptoms Right Knee Pain Score (Numeric/FACES): 4 - Related Data Allergies Allergy/AdvReac Type Severity Reaction Status Date / Time Iodinated Contrast Media Allergy Hives Verified 01/21/19 14:31 [Iodinated Contrast Media - IV Dye] lisinopril Allergy Cough Verified 01/21/19 14:31 saxagliptin Allergy Cannot Verified 01/21/19 14:31 Remember shellfish derived Allergy Hives Verified 01/21/19 14:31 LISINOPRIL-HYDROCHLOROTHIAZIDE Allergy Other Uncoded 11/16/18 09:58 Home Meds: Home Meds Acetaminophen 1,000 mg PO Q4H PRN 09/19/14 [History] Aspirin [Halfprin] 81 mg PO DAILY 09/19/14 [History] Metoprolol Tartrate [Lopressor] 12.5 mg PO DAILY 10/14/17 [History] metFORMIN [Glucophage] 1,000 mg PO BIDMEALS 10/14/17 [History] Amoxicillin/Potassium Clav [Amox-Clav 875-125 mg Tablet] 1 tab PO BID 11/16/18 [ History] Famotidine 20 mg PO BID 11/16/18 [History] Fluconazole [Diflucan] 200 mg PO DAILY 11/16/18 [History] Pantoprazole [ProTONIX] 40 mg PO BID 11/16/18 [History] Sucralfate [Carafate] 1 gram PO QID 11/16/18 [History] Furosemide [Lasix] 20 mg PO DAILY #30 tablet 11/18/18 [Rx] Iron Polysaccharides Complex [Ferrex 150] 150 mg PO DAILY #30 cap 11/18/18 [Rx] Potassium Chloride [Klor-Con 10] 20 meq PO WITHBREAKFAST #30 tab.er 11/18/18 [Rx ] Past Medical History HEENT History: Reports: Allergic Rhinitis, Impaired Vision Cardiovascular History: Reports: Hypertension Other Cardiovascular History: ?TIA vs neuritis pain left face. Guzman's Palsy Respiratory History: Reports: None Gastrointestinal History: Reports: Colon Polyp, GI Bleed Genitourinary History: Reports: UTI, Recurrent [employer] History: Reports: Musculoskeletal History: Reports: Arthritis, Fracture, Osteoarthritis Other Musculoskeletal History: knees, toes and fingers; foot fracture. Degenerative disc disease Neurological History: Other Neuro History: [place] Left side face since Psychiatric History: Reports: Other (See Below) Other Psychiatric History: history of alcohol abuse. Endocrine/Metabolic History: Reports: Diabetes, Type II, Obesity/BMI 30+ Other Endocrine/Metabolic History: OSTEOARTHRITIS, right knee Hematologic History: Reports: Anemia, Iron Deficiency, Other (See Below) Other Hematologic History: Hypoalbumenia Immunologic History: Reports: None Oncologic (Cancer) History: Reports: None Dermatologic History: Reports: None - Infectious Disease History Infectious Disease History: Reports: Chicken Pox, Measles, Mumps - Past Surgical History Head Surgeries/Procedures: Reports: None HEENT Surgical History: Reports: Cataract Surgery Cardiovascular Surgical History: Reports: None Respiratory Surgical History: Reports: None GI Surgical History: Reports: Appendectomy, Cholecystectomy, Colonoscopy, Polypectomy Female Surgical History: Reports: Section Endocrine Surgical History: Reports: None Musculoskeletal Surgical History: Reports: Other (See Below) Other Musculoskeletal Surgeries/Procedures:: bilateral shoulder surgery Oncologic Surgical History: Reports: None Dermatological Surgical History: Reports: None Social & Family History - Family History Family Medical History: Noncontributory - Caffeine Use Caffeine Use: Reports: Coffee, Tea Caffeine Use Comment: 32oz coffee. 8 oz daily tea - Living Situation & Occupation Living situation: Reports: with Family Occupation: Retired ED ROS GENERAL - Review of Systems Review Of Systems: ROS reveals no pertinent complaints other than HPI. ED EXAM, GENERAL - Physical Exam Exam: See Below Exam Limited By: No Limitations General Appearance: Alert, WD/WN, No Apparent Distress Throat/Mouth: Normal Inspection Head: Atraumatic, Normocephalic Neck: Normal Inspection Respiratory/Chest: No Respiratory Distress, Lungs Clear, Normal Breath Sounds, No Accessory Muscle Use, Other (Rt anterior superior chest wall tender, no visible injury) Cardiovascular: Regular Rate, Rhythm, No Edema GI/Abdominal: Normal Bowel Sounds, Soft, Non-Tender, No Organomegaly, No Distention, No Abnormal Bruit, No Mass Back Exam: Normal Inspection Extremities: Normal Capillary Refill, Joint Swelling (Rt with well heal and intact surgical scar, large bruise). No: Sharon's Sign, Increased Warmth, Redness Neurological: Alert, Oriented, No Motor/Sensory Deficits Psychiatric: Normal Mood Skin Exam: Warm, Dry, Intact EKG INTERPRETATION EKG Date: 01/21/19 Time: 14:57 Rhythm: Other (sinus rhythm) Rate (Beats/Min): 68 [place]: Normal P-Wave: Present QRS: Other (ventricular premature complex) ST-T: Normal QT: Normal [place]/PQ Interval: borderline prolonged AV conduction delay Comparison: No Change Course - Vital Signs Last Recorded V/S: Last Vital Signs Temp 97.5 F 01/21/19 14:40 Pulse 70 01/21/19 14:40 Resp 18 01/21/19 14:40 BP 104/47 L 01/21/19 14:40 Pulse Ox 100 01/21/19 14:40 - Orders/Labs/Meds Orders: Active Orders 24 hr Category Date Time Status EKG 12 Lead [EKG Documentation Completion] [RC] STAT Care 01/21/19 14:35 Active Peripheral IV Care [RC] . DIRECTED Care 01/21/19 14:35 Active Sodium Chloride 0.9% [Saline Flush] Med 01/21/19 14:35 Active 10 ml FLUSH ASDIRECTED PRN Peripheral IV Insertion Adult [OM.PC] Stat Oth 01/21/19 14:35 Ordered Medication Orders Sodium Chloride (Saline Flush) 10 ml FLUSH ASDIRECTED PRN PRN Reason: Keep Vein Open Labs: Laboratory Tests 01/21/19 01/21/19 Range/Units 14:47 14:47 WBC 5.9 (5.0-10.0) 10^3/uL RBC 3.91 L (4.2-5.4) 10^6/uL Hgb 7.6 L (12.0-16.0) g/dL Hct 25.4 L (37.0-47.0) % MCV 65.0 L D (80-100) fL MCH 19.4 L (27.0-34.0) pg MCHC 29.9 L (33.0-35.0) g/dL Plt Count 281 (150-450) 10^3/uL Neut % (Auto) 58.6 (42.2-75.2) % Lymph % (Auto) 20.4 L (20.5-50.1) % [place] % (Auto) 14.1 H (2-8) % Eos % (Auto) 6.0 H (1.0-3.0) % Baso % (Auto) 0.9 (0.0-1.0) % Sodium 138 (135-145) mmol/L Potassium 3.8 (3.6-5.0) mmol/L Chloride 110 (101-111) mmol/L Carbon Dioxide 21.0 (21.0-31.0) mmol/L Anion Gap 10.8 BUN 12 (7-18) mg/dL Creatinine 0.8 (0.6-1.3) mg/dL Est Cr Clr Drug Dosing 53.35 mL/min Estimated GFR (MDRD) > 60 BUN/Creatinine Ratio 15.00 Glucose 162 H (74-105) mg/dL Calcium 8.2 L (8.4-10.2) mg/dl Total Bilirubin 1.4 H (0.2-1.0) mg/dL AST 45 H (10-42) IU/L ALT 26 (10-60) IU/L Alkaline Phosphatase 99 (42-121) IU/L Troponin I < 0.02 (0.00-0.02) ng/ml B-Natriuretic Peptide 71 (0-100) pg/ml Total Protein 6.3 L (6.7-8.2) g/dl Albumin 2.9 L (3.2-5.5) g/dl Globulin 3.4 Albumin/Globulin Ratio 0.85 Lipase 45 (22-51) U/L Meds: Medications Generic Name Dose Route Start Last Admin Trade Name Freq PRN Reason Stop Dose Admin Sodium Chloride 10 ml 01/21/19 14:35 Saline Flush FLUSH ASDIRECTED PRN Keep Vein Open Discontinued Medications Generic Name Dose Route Start Last Admin Trade Name Freq PRN Reason Stop Dose Admin Aspirin 324 mg 01/21/19 14:59 01/21/19 15:15 Aspirin PO 01/21/19 15:00 324 mg ONETIME ONE Administration - Radiology Interpretation Free Text/Narrative:: [facility] Final Radiology Report Call: [phone] assistance Online chat: [email or web address] Maid Name: GIA HARRIS Age: 73Years F Date: 01/21/2019 SSN: -- : 1945 Study: XR RIBS 3 VIEWS W PA CHEST RIGHT Requesting Physician: NOELLE DESAI Images: 3 Addl Studies: Provided Clinical History: Contrast: Contrast Medium: Contrast Amount: Contrast Method: Page 1 of 2 PROCEDURE INFORMATION: Exam: XR Right Ribs with PA Chest, 3 Views Exam date and time: 01/21/2019 2:52 PM Clinical history: 73 years old, female; Injury or trauma; Initial encounter; Rib area; Blunt trauma (contusions or hematomas); Patient HX: Fall right rib and chest pain. TECHNIQUE: Imaging protocol: XR Right ribs 3 views with PA chest. COMPARISON: CR Chest 2V 01/13/2017 6:50 PM FINDINGS: Lungs: Mild bilateral pulmonary vascular congestion present. Atelectatic and/or fibrotic changes within both lung bases. Pleural space: There is no evidence of pneumothorax. There are no pleural effusions present. Heart/Mediastinum: The heart demonstrates mild diffuse enlargement. Diaphragm: There is nonspecific elevation of the right hemidiaphragm. Upper abdomen: Surgical clips present within the right upper quadrant. Bones/joints: The thoracic spine demonstrates moderate degenerative changes at multiple levels. There is no evidence of acute fracture. Soft tissues: The vasculature demonstrates diffuse moderate atherosclerotic calcification. IMPRESSION: 1. No evidence of acute fracture. 2. There is no evidence of pneumothorax. 3. Mild bilateral pulmonary vascular congestion present. 4. The heart demonstrates mild diffuse enlargement. Thank you for allowing us to participate in the care of your patient. GIA HARRIS | Final Radiology Report CONFIDENTIALITY STATEMENT This report is intended only for use by the referring physician, and only in accordance with law. If you received this in error, call [phone]. Page 2 of 2 Dictated and Authenticated by: Jaziel Nicole DO 01/21/2019 3:21 PM Central Time ( & [place]) [facility] Final Radiology Report Call: [phone] assistance Online chat: [email or web address] Maid Name: GIA HARRIS Age: 73Years F Date: 01/21/2019 SSN: -- : 1945 Study: XR KNEE 1 OR 2 VIEWS RIGHT Requesting Physician: NOELLE DESAI Images: 2 Addl Studies: Provided Clinical History: Contrast: Contrast Medium: Contrast Amount: Contrast Method: CONFIDENTIALITY STATEMENT This report is intended only for use by the referring physician, and only in accordance with law. If you received this in error, call [phone]. Page 1 of 1 PROCEDURE INFORMATION: Exam: XR Right Knee Exam date and time: 01/21/2019 3:07 PM Clinical history: 73 years old, female; Injury or trauma; Fall; Initial encounter; Blunt trauma; Knee; Right; Prior surgery; Surgery date: 6+ months TECHNIQUE: Imaging protocol: XR Right knee. Views: 1 or 2 views. COMPARISON: No relevant prior studies available. FINDINGS: Bones/joints: There has been a knee arthroplasty with patellar resurfacing. There is no evidence of acute fracture. There is no evidence of joint malalignment or dislocation. Small joint effusion is present. Soft tissues: There are no soft tissue masses or fluid collections. Vasculature: The vasculature demonstrates diffuse moderate atherosclerotic calcification. IMPRESSION: 1. No evidence of acute fracture. 2. No evidence of acute dislocation. 3. Small joint effusion is present. Thank you for allowing us to participate in the care of your patient. Dictated and Authenticated by: Jaziel Nicole DO 01/21/2019 3:23 PM Central Time ([place] & [place]) Departure - Departure Time of Disposition: 16:17 Disposition: Home, Self-Care 01 Condition: Good Clinical Impression: Contusion of right knee, initial encounter Contusion, chest wall Qualifiers: Encounter type: initial encounter Laterality: right Qualified Code(s): S20.211A - Contusion of right front wall of thorax, initial encounter Fall as cause of accidental injury at home as place of occurrence Qualifiers: Encounter type: initial encounter Qualified Code(s): W19.XXXA - Unspecified fall, initial encounter; Y92.009 - Unspecified place in unspecified non- institutional (private) residence as the place of occurrence of the external cause Instructions: Contusion, [id number], Rib Contusion Forms: ED Department Discharge Additional Instructions: Wear right knee immobilizer as needed for comfort. Use cane or walker as needed for stability. Follow up in clinic this coming week for recheck if needed. - My Orders Last 24 Hours: My Active Orders 01/21/19 14:35 EKG 12 Lead [EKG Documentation Completion] [RC] STAT Peripheral IV Care [RC] . DIRECTED Sodium Chloride 0.9% [Saline Flush] 10 ml FLUSH ASDIRECTED PRN Peripheral IV Insertion Adult [OM.PC] Stat - Assessment/Plan Last 24 Hours: My Active Orders 01/21/19 14:35 EKG 12 Lead [EKG Documentation Completion] [RC] STAT Peripheral IV Care [RC] . DIRECTED Sodium Chloride 0.9% [Saline Flush] 10 ml FLUSH ASDIRECTED PRN Peripheral IV Insertion Adult [OM.PC] Stat I have read and agree with the documentation that has been completed regarding this visit. By signing this record, I attest that the documentation was completed in my physical presence and is an accurate record of the encounter."
== END 2019-01-21 16:28 | disposition home or self-care (01) ==
LOC: DL.ED 14:25
DX: S20.211A Contusion of right front wall of thorax, initial encounter (principal); S80.01XA Contusion of right knee, initial encounter; I10 Essential (primary) hypertension; E11.9 Type 2 diabetes mellitus without complications; E66.9 Obesity, unspecified; Z68.32 Body mass index [BMI] 32.0-32.9, adult; Z88.8 Allergy status to other drugs, medicaments and biological substances; Z91.041 Radiographic dye allergy status; Z91.013 Allergy to seafood; Z79.82 Long term (current) use of aspirin; Z79.899 Other long term (current) drug therapy; Z79.84 Long term (current) use of oral hypoglycemic drugs; W18.09XA Striking against other object with subsequent fall, initial encounter
CPT/HCPCS: 36415; 71101; 73560; 80053; 83690; 83880; 84484; 85025; 93005; 93010; 99284; 99285; A9270

== ENCOUNTER 2019-08-03 15:17 | Inpatient (IN) | payer MEDICARE, MEDICAID ==
[2019-08-03 16:48] LABS: ANION GAP 14.8 mEq/L (7-13)
[2019-08-03] MEDS ORDERED: Sodium Chloride 0.9% 1,000 ML IV ONE (17:12)
[2019-08-03] MEDS ORDERED: cefTRIAXone 1 GM in Sodium Chloride 0.9% 50 ML IV ONE (17:13)
--- NOTE | 2019-08-03 17:34 | EDM.PDOC ---
ED HPI GENERAL MEDICAL PROBLEM - General Chief Complaint: General Stated Complaint: [facility] Time Seen by Provider: 08/03/19 15:40 Source of Information: Reports: Patient, RN, RN Notes Reviewed History Limitations: Reports: Altered Mental Status - History of Present Illness INITIAL COMMENTS - FREE TEXT/NARRATIVE: Patient presents to ER per [facility] with complaint of not feeling well. Patient states she has been not feeling well since last evening. She feels very tired and weak. Patient is disorientated to place, person, time. Patient is unsure why she has a Port-A-Cath, and states she is not sure if she has cancer. Patient denies any fever chills, nausea vomiting, diarrhea. Son called in later stating she has been doctoring with the doctor in [place] for spots on her liver. He states he was unsure if she had cancer. He states she has had a UTI recently and has been taking medication for that. He states she has not been herself today or yesterday. Son states she is normally orientated up ambulating around on her own. Patient lives at home with her sons. Son states she also has had some difficult news as she has a son in [place] in a coma which she just found out about today. Patient denies any blood in the stool. Onset: Today, Gradual - Related Data Allergies Allergy/AdvReac Type Severity Reaction Status Date / Time Iodinated Contrast Media Allergy Hives Verified 08/03/19 15:39 [Iodinated Contrast Media - IV Dye] lisinopril Allergy Cough Verified 08/03/19 15:39 saxagliptin Allergy Cannot Verified 08/03/19 15:39 Remember shellfish derived Allergy Hives Verified 08/03/19 15:39 LISINOPRIL-HYDROCHLOROTHIAZIDE Allergy Other Uncoded 11/16/18 09:58 Home Meds: Home Meds Acetaminophen 1,000 mg PO Q4H PRN 09/19/14 [History] Aspirin [Halfprin] 81 mg PO DAILY 09/19/14 [History] Metoprolol Tartrate [Lopressor] 12.5 mg PO DAILY 10/14/17 [History] metFORMIN [Glucophage] 1,000 mg PO BIDMEALS 10/14/17 [History] Amoxicillin/Potassium Clav [Amox-Clav 875-125 mg Tablet] 1 tab PO BID 11/16/18 [ History] Famotidine 20 mg PO BID 11/16/18 [History] Fluconazole [Diflucan] 200 mg PO DAILY 11/16/18 [History] Pantoprazole [ProTONIX] 40 mg PO BID 11/16/18 [History] Sucralfate [Carafate] 1 gram PO QID 11/16/18 [History] Furosemide [Lasix] 20 mg PO DAILY #30 tablet 11/18/18 [Rx] Iron Polysaccharides Complex [Ferrex 150] 150 mg PO DAILY #30 cap 11/18/18 [Rx] Potassium Chloride [Klor-Con 10] 20 meq PO WITHBREAKFAST #30 tab.er 11/18/18 [Rx ] Past Medical History HEENT History: Reports: Allergic Rhinitis, Impaired Vision Cardiovascular History: Reports: Hypertension Other Cardiovascular History: ?TIA vs neuritis pain left face. Guzman's Palsy Respiratory History: Reports: None Gastrointestinal History: Reports: Colon Polyp, GI Bleed Genitourinary History: Reports: UTI, Recurrent DIE SIZER History: Reports: Musculoskeletal History: Reports: Arthritis, Fracture, Osteoarthritis Other Musculoskeletal History: knees, toes and fingers; foot fracture. Degenerative disc disease Neurological History: Other Neuro History: Troy Palsey Left side face since Psychiatric History: Reports: Other (See Below) Other Psychiatric History: history of alcohol abuse. Endocrine/Metabolic History: Reports: Diabetes, Type II, Obesity/BMI 30+ Other Endocrine/Metabolic History: OSTEOARTHRITIS, right knee Hematologic History: Reports: Anemia, Iron Deficiency, Other (See Below) Other Hematologic History: Hypoalbumenia Immunologic History: Reports: None Oncologic (Cancer) History: Reports: None Dermatologic History: Reports: None - Infectious Disease History Infectious Disease History: Reports: Chicken Pox, Measles, Mumps - Past Surgical History Head Surgeries/Procedures: Reports: None HEENT Surgical History: Reports: Cataract Surgery Cardiovascular Surgical History: Reports: None Respiratory Surgical History: Reports: None GI Surgical History: Reports: Appendectomy, Cholecystectomy, Colonoscopy, Polypectomy Female Surgical History: Reports: Section Endocrine Surgical History: Reports: None Musculoskeletal Surgical History: Reports: Other (See Below) Other Musculoskeletal Surgeries/Procedures:: bilateral shoulder surgery Oncologic Surgical History: Reports: None Dermatological Surgical History: Reports: None Social & Family History - Family History Family Medical History: Noncontributory - Tobacco Use Smoking Status *Q: Never Smoker Second Hand Smoke Exposure: No - Caffeine Use Caffeine Use: Reports: Coffee Caffeine Use Comment: 32oz coffee. 8 oz daily tea - Recreational Drug Use Recreational Drug Use: No - Living Situation & Occupation Living situation: Reports: with Family Occupation: Retired ED ROS GENERAL - Review of Systems Review Of Systems: Comprehensive ROS is negative, except as noted in HPI. ED EXAM, GENERAL - Physical Exam Exam: See Below Exam Limited By: Altered Mental Status General Appearance: Alert, No Apparent Distress, Lethargic Eye Exam: Bilateral Eye: EOMI, Normal Inspection Ears: Normal External Exam, Hearing Grossly Normal Nose: Normal Inspection Throat/Mouth: Normal Inspection, Normal Voice, No Airway Compromise Head: Atraumatic, Normocephalic Neck: Normal Inspection, Supple, Non-Tender, Full Range of Motion Respiratory/Chest: No Respiratory Distress, Lungs Clear, Normal Breath Sounds, No Accessory Muscle Use, Chest Non-Tender Cardiovascular: Normal Peripheral Pulses, Regular Rate, Rhythm, No Edema, No Gallop, No JVD, No Murmur, No Rub Peripheral Pulses: 2+: Radial (L), Radial (R) GI/Abdominal: Normal Bowel Sounds, Soft, Non-Tender, Other (belly distention, ascites) (Female) Exam: Deferred Rectal (Female) Exam: Deferred Back Exam: Normal Inspection, Full Range of Motion, NT Extremities: Normal Inspection, Normal Range of Motion, Non-Tender, Normal Capillary Refill, No Pedal Edema Neurological: Alert, No Motor/Sensory Deficits, Inattentive, Confused, Disoriented, Slow to Respond, Memory Loss Recent Events, Other (States she has Troy Palsy) Psychiatric: Normal Affect, Normal Mood Skin Exam: Warm, Dry, Intact, Normal Color, No Rash Lymphatic: No Adenopathy Course - Vital Signs Last Recorded V/S: Last Vital Signs Temp 98.6 F 08/03/19 15:34 Pulse 98 08/03/19 15:34 Resp 18 08/03/19 15:34 BP 145/78 H 08/03/19 15:34 Pulse Ox 100 08/03/19 15:34 - Orders/Labs/Meds Orders: Active Orders 24 hr Category Date Time Status Admission Diagnosis [ADT] Stat ADT 08/03/19 17:48 Ordered Admission Status [Patient Status] [ADT] Routine ADT 08/03/19 17:48 Ordered Head wo Cont [CT] Stat Exams 08/03/19 16:44 Taken CULTURE URINE [RM] Stat Lab 08/03/19 16:10 Received Sodium Chloride 0.9% [Normal Saline] 1,000 ml Med 08/03/19 17:12 Active IV .BOLUS Medication Orders Sodium Chloride (Normal Saline) 1,000 mls @ 200 mls/hr IV .BOLUS ONE Stop: 08/03/19 22:11 Last Admin: 08/03/19 17:22 Dose: 200 mls/hr Labs: Laboratory Tests 08/03/19 08/03/19 08/03/19 Range/Units 16:10 16:23 16:23 WBC 5.8 (5.0-10.0) 10^3/uL RBC 3.73 L (4.2-5.4) 10^6/uL Hgb 9.3 L D (12.0-16.0) g/dL Hct 28.9 L (37.0-47.0) % MCV 77.5 L D (80-100) fL MCH 24.9 L (27.0-34.0) pg MCHC 32.2 L (33.0-35.0) g/dL Plt Count 277 (150-450) 10^3/uL Neut % (Auto) 71.0 (42.2-75.2) % Lymph % (Auto) 11.5 L (20.5-50.1) % [place] % (Auto) 16.3 H (2-8) % Eos % (Auto) 0.7 L (1.0-3.0) % Baso % (Auto) 0.5 (0.0-1.0) % Sodium 141 (136-145) mmol/L Potassium 3.8 (3.5-5.1) mmol/L Chloride 108 H (98-107) mmol/L Carbon Dioxide 22 (21-32) mmol/L Anion Gap 14.8 H (7-13) mEq/L BUN 13 (7-18) mg/dL Creatinine 1.01 (0.55-1.02) mg/dL Est Cr Clr Drug Dosing 43.48 mL/min Estimated GFR (MDRD) 54 BUN/Creatinine Ratio 12.9 (No establ ref range) Glucose 106 H (74-99) mg/dL Calcium 7.9 L (8.5-10.1) mg/dL Total Bilirubin 1.0 (0.2-1.0) mg/dL AST 22 (15-37) U/L ALT 22 (14-59) U/L Alkaline Phosphatase 121 H (46-116) U/L Ammonia (11-32) umol/L Total Protein 6.1 L (6.4-8.2) g/dL Albumin 2.3 L (3.4-5.0) g/dL Globulin 3.8 Albumin/Globulin Ratio 0.61 Urine Color Yellow (YELLOW) Urine Appearance Turbid (CLEAR) Urine pH 5.5 (5.0-9.0) Ur Specific [place] 1.025 (1.005-1.030) Urine Protein Negative (NEGATIVE) Urine Glucose (UA) Negative (NEGATIVE) Urine Ketones Negative (NEGATIVE) Urine Occult Blood Small H (NEGATIVE) Urine Nitrite Positive H (NEGATIVE) Urine Bilirubin Negative (NEGATIVE) Urine Urobilinogen 0.2 (0.2-1.0) mg/dL Ur Leukocyte Esterase Moderate H (NEGATIVE) Urine RBC 5-10 H /HPF Urine WBC 40-50 H (0-5/HPF) /HPF Ur Epithelial Cells Few (NOT SEEN) /HPF Amorphous Sediment Rare (NOT SEEN) /HPF Urine Bacteria Many H (0-FEW/HPF) /HPF Urine Mucus Few H (NOT SEEN) /LPF 08/03/19 Range/Units 16:52 WBC (5.0-10.0) 10^3/uL RBC (4.2-5.4) 10^6/uL Hgb (12.0-16.0) g/dL Hct (37.0-47.0) % MCV (80-100) fL MCH (27.0-34.0) pg MCHC (33.0-35.0) g/dL Plt Count (150-450) 10^3/uL Neut % (Auto) (42.2-75.2) % Lymph % (Auto) (20.5-50.1) % [place] % (Auto) (2-8) % Eos % (Auto) (1.0-3.0) % Baso % (Auto) (0.0-1.0) % Sodium (136-145) mmol/L Potassium (3.5-5.1) mmol/L Chloride (98-107) mmol/L Carbon Dioxide (21-32) mmol/L Anion Gap (7-13) mEq/L BUN (7-18) mg/dL Creatinine (0.55-1.02) mg/dL Est Cr Clr Drug Dosing mL/min Estimated GFR (MDRD) BUN/Creatinine Ratio (No establ ref range) Glucose (74-99) mg/dL Calcium (8.5-10.1) mg/dL Total Bilirubin (0.2-1.0) mg/dL AST (15-37) U/L ALT (14-59) U/L Alkaline Phosphatase (46-116) U/L Ammonia 106 H (11-32) umol/L Total Protein (6.4-8.2) g/dL Albumin (3.4-5.0) g/dL Globulin Albumin/Globulin Ratio Urine Color (YELLOW) Urine Appearance (CLEAR) Urine pH (5.0-9.0) Ur Specific [place] (1.005-1.030) Urine Protein (NEGATIVE) Urine Glucose (UA) (NEGATIVE) Urine Ketones (NEGATIVE) Urine Occult Blood (NEGATIVE) Urine Nitrite (NEGATIVE) Urine Bilirubin (NEGATIVE) Urine Urobilinogen (0.2-1.0) mg/dL Ur Leukocyte Esterase (NEGATIVE) Urine RBC /HPF Urine WBC (0-5/HPF) /HPF Ur Epithelial Cells (NOT SEEN) /HPF Amorphous Sediment (NOT SEEN) /HPF Urine Bacteria (0-FEW/HPF) /HPF Urine Mucus (NOT SEEN) /LPF Meds: Medications Generic Name Dose Route Start Last Admin Trade Name Freq PRN Reason Stop Dose Admin Sodium Chloride 1,000 mls @ 200 mls/hr 08/03/19 17:12 08/03/19 17:22 Normal Saline IV 08/03/19 22:11 200 mls/hr .BOLUS ONE Administration Discontinued Medications Generic Name Dose Route Start Last Admin Trade Name Freq PRN Reason Stop Dose Admin Ceftriaxone Sodium 1 gm/ 50 mls @ 100 mls/hr 08/03/19 17:13 08/03/19 17:25 Sodium Chloride IV 08/03/19 17:42 100 mls/hr ONETIME ONE Administration - Radiology Interpretation Free Text/Narrative:: Head CT wo contrast: FINDINGS: Brain: No mass effect or midline shift. No abnormal densities are seen intracranially; no sign of acute intracranial hemorrhage or cerebral edema. Ventricles: Ventricles and cortical sulci are normal in caliber. Bones/joints: Skull base and overlying calvarium are intact. No lytic or osteosclerotic lesions. Sinuses: Visualized sinuses are unremarkable. No fluid levels. Mastoid air cells: Visualized mastoid air cells are well aerated. Soft tissues: Unremarkable. IMPRESSION: 1. No acute intracranial abnormality. 2. No significant interval change in appearance of the brain when compared to the CT HEAD 07/10/2006 5:18 AM. Thank you for allowing us to participate in the care of your patient. Dictated and Authenticated by: Bertin Quintanilla MD 08/03/2019 5:23 PM Central Time ([place] & [place]) See rad report - Re-Assessments/Exams Free Text/Narrative Re-Assessment/Exam: 08/03/19 17:49 Discussed patient case with Dr. Lora who agreed to admit the patient as inpatient status. Departure - Departure Time of Disposition: 17:50 Disposition: Admitted As Inpatient 68 Condition: Fair Clinical Impression: Acute encephalopathy, Liver metastases UTI (urinary tract infection) Qualifiers: Urinary tract infection type: acute cystitis Hematuria presence: without hematuria Qualified Code(s): N30.00 - Acute cystitis without hematuria - Discharge Information *PRESCRIPTION DRUG MONITORING PROGRAM REVIEWED*: No *COPY OF PRESCRIPTION DRUG MONITORING REPORT IN PATIENT SANDHYA: No Forms: ED Department Discharge Sepsis Event Note - Evaluation Sepsis Screening Result: No Definite Risk - Focused Exam Vital Signs: Vital Signs Temp Pulse Resp BP Pulse Ox 08/03/19 15:34 98.6 F 98 18 145/78 H 100 Date Exam was Performed: 08/03/19 Time Exam was Performed: 17:49 - My Orders Last 24 Hours: My Active Orders 08/03/19 16:10 CULTURE URINE [RM] Stat 08/03/19 16:44 Head wo Cont [CT] Stat 08/03/19 17:12 Sodium Chloride 0.9% [Normal Saline] 1,000 ml IV .BOLUS 08/03/19 17:48 Admission Diagnosis [ADT] Stat Admission Status [Patient Status] [ADT] Routine - Assessment/Plan Last 24 Hours: My Active Orders 08/03/19 16:10 CULTURE URINE [RM] Stat 08/03/19 16:44 Head wo Cont [CT] Stat 08/03/19 17:12 Sodium Chloride 0.9% [Normal Saline] 1,000 ml IV .BOLUS 08/03/19 17:48 Admission Diagnosis [ADT] Stat Admission Status [Patient Status] [ADT] Routine
[2019-08-03] MEDS ORDERED: Glucagon,Human Recombinant 1 MG Vial IM PRN (18:31)
[2019-08-03] MEDS ORDERED: 50% Dextrose in Water 50 ML Syringe IVPUSH PRN (18:31)
[2019-08-03] MEDS ORDERED: Acetaminophen 325 MG Tab PO PRN (18:37)
--- NOTE | 2019-08-03 19:03 | PCM.HP ---
H&P History of Present Illness - General Date of Service: 08/03/19 Admit Problem/Dx: Admission Diagnosis/Problem Admission Diagnosis/Problem Acute hepatic encephalopathy Source of Information: Patient, Old Records, Provider - History of Present Illness Initial Comments - Free Text/Narative: Patient is a 74-year-old female with medical history significant for ovarian cancer with metastasis to the liver, hepatic cirrhosis, hepatic encephalopathy, type 2 diabetes, history of upper GI bleed, and history of ascites was brought to the ED by EMS for confusion. In the ED, patient was unable to state why she was sent to the ED. On my questioning, patient still unsure why she was sent to the ED. Provided states that patient did not know the date and time and year. Also was disoriented to self. Presently, patient does not recall last time she had chemotherapy. Also does not recall having a port or the use of the port. However, she denies chest pain, shortness of breath, fevers, chills, nausea, vomiting, diarrhea, constipation, dysuria, hematuria, edema, or any other symptoms. States that she has a home medications past by home health nursing and has been getting her medications all the time. In the ED, patient's ammonia was elevated at 106. AST and ALT were normal. Alk phos was 121. Renal function was fairly normal except for elevated chloride of 108. CBC showed WBC count of 5.8 with hemoglobin of 9.3 and platelet count of 227. UA was positive for leukocytes and nitrites. Urine microscopy showed WBCs and bacteria. She was given a dose of IV Rocephin. - Related Data Allergies/Adverse Reactions: Allergies Allergy/AdvReac Type Severity Reaction Status Date / Time Iodinated Contrast Media Allergy Hives Verified 08/03/19 15:39 [Iodinated Contrast Media - IV Dye] lisinopril Allergy Cough Verified 08/03/19 15:39 saxagliptin Allergy Cannot Verified 08/03/19 15:39 Remember shellfish derived Allergy Hives Verified 08/03/19 15:39 LISINOPRIL-HYDROCHLOROTHIAZIDE Allergy Other Uncoded 11/16/18 09:58 Home Medications: Home Meds Acetaminophen 1,000 mg PO Q4H PRN 09/19/14 [History] Aspirin [Halfprin] 81 mg PO DAILY 09/19/14 [History] Metoprolol Tartrate [Lopressor] 12.5 mg PO DAILY 10/14/17 [History] metFORMIN [Glucophage] 1,000 mg PO BIDMEALS 10/14/17 [History] Amoxicillin/Potassium Clav [Amox-Clav 875-125 mg Tablet] 1 tab PO BID 11/16/18 [ History] Famotidine 20 mg PO BID 11/16/18 [History] Fluconazole [Diflucan] 200 mg PO DAILY 11/16/18 [History] Pantoprazole [ProTONIX] 40 mg PO BID 11/16/18 [History] Sucralfate [Carafate] 1 gram PO QID 11/16/18 [History] Furosemide [Lasix] 20 mg PO DAILY #30 tablet 11/18/18 [Rx] Iron Polysaccharides Complex [Ferrex 150] 150 mg PO DAILY #30 cap 11/18/18 [Rx] Potassium Chloride [Klor-Con 10] 20 meq PO WITHBREAKFAST #30 tab.er 11/18/18 [Rx ] Past Medical History HEENT History: Reports: Allergic Rhinitis, Impaired Vision Cardiovascular History: Reports: Hypertension Other Cardiovascular History: ?TIA vs neuritis pain left face. Guzman's Palsy Respiratory History: Reports: None Gastrointestinal History: Reports: Colon Polyp, GI Bleed Genitourinary History: Reports: UTI, Recurrent [employer] History: Reports: Musculoskeletal History: Reports: Arthritis, Fracture, Osteoarthritis Other Musculoskeletal History: knees, toes and fingers; foot fracture. Degenerative disc disease Neurological History: Other Neuro History: Pl[place] Left side face since Psychiatric History: Reports: Other (See Below) Other Psychiatric History: history of alcohol abuse. Endocrine/Metabolic History: Reports: Diabetes, Type II, Obesity/BMI 30+ Other Endocrine/Metabolic History: OSTEOARTHRITIS, right knee Hematologic History: Reports: Anemia, Iron Deficiency, Other (See Below) Other Hematologic History: Hypoalbumenia Immunologic History: Reports: None Oncologic (Cancer) History: Reports: None Dermatologic History: Reports: None - Infectious Disease History Infectious Disease History: Reports: Chicken Pox, Measles, Mumps - Past Surgical History Head Surgeries/Procedures: Reports: None HEENT Surgical History: Reports: Cataract Surgery Cardiovascular Surgical History: Reports: None Respiratory Surgical History: Reports: None GI Surgical History: Reports: Appendectomy, Cholecystectomy, Colonoscopy, Polypectomy Female Surgical History: Reports: Section Endocrine Surgical History: Reports: None Musculoskeletal Surgical History: Reports: Other (See Below) Other Musculoskeletal Surgeries/Procedures:: bilateral shoulder surgery Oncologic Surgical History: Reports: None Dermatological Surgical History: Reports: None Social & Family History - Family History Family Medical History: Noncontributory - Tobacco Use Smoking Status *Q: Unknown Ever Smoked Second Hand Smoke Exposure: No - Caffeine Use Caffeine Use: Reports: Coffee Caffeine Use Comment: 32oz coffee. 8 oz daily tea - Recreational Drug Use Recreational Drug Use: No - Living Situation & Occupation Living situation: Reports: with Family Occupation: Retired H&P Review of Systems - Review of Systems: Review Of Systems: See Below (ROS negative throughout, however patient is encephalopathic and so uncertain whether she is responding appropriately to questions.) Exam - Exam Exam: See Below - Vital Signs Vital Signs: Last Vital Signs Temp 98.1 F 08/03/19 18:05 Pulse 96 08/03/19 18:05 Resp 18 08/03/19 18:05 BP 119/68 08/03/19 18:05 Pulse Ox 100 08/03/19 18:32 Weight: 152 lb 6 oz - Exam General: Alert, Oriented (Knows her age, location, the year, and name of president. Does not recall why she was brought to the hospital.) HEENT: Conjunctiva Clear, Hearing Intact, Mucosa Moist & [place] Neck: Supple, Trachea Midline Lungs: Clear to Auscultation, Normal Respiratory Effort Cardiovascular: Regular Rate, Regular Rhythm GI/Abdominal Exam: Normal Bowel Sounds, Soft, Non-Tender Extremities: Normal Inspection, Non-Tender, No Pedal Edema Skin: Warm, Dry, Intact Neuro Extensive - Mental Status: Alert, Oriented x3, Normal Mood/Affect Psychiatric: Alert, Normal Affect - Patient Data Lab Results Last 24 hrs: Laboratory Results - last 24 hr 08/03/19 08/03/19 08/03/19 Range/Units 16:10 16:23 16:23 WBC 5.8 (5.0-10.0) 10^3/uL RBC 3.73 L (4.2-5.4) 10^6/uL Hgb 9.3 L D (12.0-16.0) g/dL Hct 28.9 L (37.0-47.0) % MCV 77.5 L D (80-100) fL MCH 24.9 L (27.0-34.0) pg MCHC 32.2 L (33.0-35.0) g/dL Plt Count 277 (150-450) 10^3/uL Neut % (Auto) 71.0 (42.2-75.2) % Lymph % (Auto) 11.5 L (20.5-50.1) % [place] % (Auto) 16.3 H (2-8) % Eos % (Auto) 0.7 L (1.0-3.0) % Baso % (Auto) 0.5 (0.0-1.0) % Sodium 141 (136-145) mmol/L Potassium 3.8 (3.5-5.1) mmol/L Chloride 108 H (98-107) mmol/L Carbon Dioxide 22 (21-32) mmol/L Anion Gap 14.8 H (7-13) mEq/L BUN 13 (7-18) mg/dL Creatinine 1.01 (0.55-1.02) mg/dL Est Cr Clr Drug Dosing 43.48 mL/min Estimated GFR (MDRD) 54 BUN/Creatinine Ratio 12.9 (No establ ref range) Glucose 106 H (74-99) mg/dL Calcium 7.9 L (8.5-10.1) mg/dL Total Bilirubin 1.0 (0.2-1.0) mg/dL AST 22 (15-37) U/L ALT 22 (14-59) U/L Alkaline Phosphatase 121 H (46-116) U/L Ammonia (11-32) umol/L Total Protein 6.1 L (6.4-8.2) g/dL Albumin 2.3 L (3.4-5.0) g/dL Globulin 3.8 Albumin/Globulin Ratio 0.61 Urine Color Yellow (YELLOW) Urine Appearance Turbid (CLEAR) Urine pH 5.5 (5.0-9.0) Ur Specific [place] 1.025 (1.005-1.030) Urine Protein Negative (NEGATIVE) Urine Glucose (UA) Negative (NEGATIVE) Urine Ketones Negative (NEGATIVE) Urine Occult Blood Small H (NEGATIVE) Urine Nitrite Positive H (NEGATIVE) Urine Bilirubin Negative (NEGATIVE) Urine Urobilinogen 0.2 (0.2-1.0) mg/dL Ur Leukocyte Esterase Moderate H (NEGATIVE) Urine RBC 5-10 H /HPF Urine WBC 40-50 H (0-5/HPF) /HPF Ur Epithelial Cells Few (NOT SEEN) /HPF Amorphous Sediment Rare (NOT SEEN) /HPF Urine Bacteria Many H (0-FEW/HPF) /HPF Urine Mucus Few H (NOT SEEN) /LPF 08/03/19 Range/Units 16:52 WBC (5.0-10.0) 10^3/uL RBC (4.2-5.4) 10^6/uL Hgb (12.0-16.0) g/dL Hct (37.0-47.0) % MCV (80-100) fL MCH (27.0-34.0) pg MCHC (33.0-35.0) g/dL Plt Count (150-450) 10^3/uL Neut % (Auto) (42.2-75.2) % Lymph % (Auto) (20.5-50.1) % [place] % (Auto) (2-8) % Eos % (Auto) (1.0-3.0) % Baso % (Auto) (0.0-1.0) % Sodium (136-145) mmol/L Potassium (3.5-5.1) mmol/L Chloride (98-107) mmol/L Carbon Dioxide (21-32) mmol/L Anion Gap (7-13) mEq/L BUN (7-18) mg/dL Creatinine (0.55-1.02) mg/dL Est Cr Clr Drug Dosing mL/min Estimated GFR (MDRD) BUN/Creatinine Ratio (No establ ref range) Glucose (74-99) mg/dL Calcium (8.5-10.1) mg/dL Total Bilirubin (0.2-1.0) mg/dL AST (15-37) U/L ALT (14-59) U/L Alkaline Phosphatase (46-116) U/L Ammonia 106 H (11-32) umol/L Total Protein (6.4-8.2) g/dL Albumin (3.4-5.0) g/dL Globulin Albumin/Globulin Ratio Urine Color (YELLOW) Urine Appearance (CLEAR) Urine pH (5.0-9.0) Ur Specific [place] (1.005-1.030) Urine Protein (NEGATIVE) Urine Glucose (UA) (NEGATIVE) Urine Ketones (NEGATIVE) Urine Occult Blood (NEGATIVE) Urine Nitrite (NEGATIVE) Urine Bilirubin (NEGATIVE) Urine Urobilinogen (0.2-1.0) mg/dL Ur Leukocyte Esterase (NEGATIVE) Urine RBC /HPF Urine WBC (0-5/HPF) /HPF Ur Epithelial Cells (NOT SEEN) /HPF Amorphous Sediment (NOT SEEN) /HPF Urine Bacteria (0-FEW/HPF) /HPF Urine Mucus (NOT SEEN) /LPF Result Diagrams: 08/03/19 16:23 08/03/19 16:23 - Problem List (1) Cirrhosis of liver SNOMED Code(s): 06464518 ICD Code: K74.60 - UNSPECIFIED CIRRHOSIS OF LIVER Status: Acute Current Visit: Yes (2) Acute encephalopathy SNOMED Code(s): 73342898, 337630925 ICD Code: G93.40 - ENCEPHALOPATHY, UNSPECIFIED Status: Acute Current Visit: No (3) Anemia SNOMED Code(s): 761309728 ICD Code: D64.9 - ANEMIA, UNSPECIFIED Status: Acute Current Visit: No Qualifiers: Anemia type: unspecified type Qualified Code(s): D64.9 - Anemia, unspecified (4) Liver metastases Status: Acute Current Visit: No (5) UTI (urinary tract infection) SNOMED Code(s): 47711787 ICD Code: N39.0 - URINARY TRACT INFECTION, SITE NOT SPECIFIED Status: Acute Current Visit: No Qualifiers: Urinary tract infection type: acute cystitis Hematuria presence: without hematuria Qualified Code(s): N30.00 - Acute cystitis without hematuria Problem List Initiated/Reviewed/Updated: Yes Orders Last 24hrs: Active Orders 24 hr Category Date Time Status Admission Diagnosis [ADT] Stat ADT 08/03/19 17:48 Ordered Admission Status [Patient Status] [ADT] Routine ADT 08/03/19 17:48 Active Blood Glucose Check, Bedside [RC] WITHMEALSANDBED Care 08/03/19 18:31 Ordered Diabetes Education [RC] Click to Edit Care 08/03/19 18:32 Ordered Intake and Output [RC] QSHIFT Care 08/03/19 18:34 Ordered Notify Provider [RC] PRN Care 08/03/19 18:32 Ordered Oxygen Therapy [RC] PRN Care 08/03/19 18:32 Ordered Up With Assistance [RC] ASDIRECTED Care 08/03/19 18:31 Ordered VTE/DVT Education [RC] PER UNIT ROUTINE Care 08/03/19 18:32 Ordered Vital Signs [RC] Q4H Care 08/03/19 18:32 Ordered Consistent Carbohydrate Diet [DIET] Diet 08/03/19 Dinner Ordered Head wo Cont [CT] Stat Exams 08/03/19 16:44 Taken BASIC METABOLIC PANEL,BMP [CHEM] AM Lab 08/04/19 05:11 Ordered CBC W/O DIFF,HEMOGRAM [HEME] AM Lab 08/04/19 05:11 Ordered CULTURE URINE [RM] Stat Lab 08/03/19 16:10 Received HEPATIC FUNCTION PANEL,HFP [CHEM] AM Lab 08/04/19 05:11 Ordered Acetaminophen [Tylenol] Med 08/03/19 18:37 Ordered 1,000 mg PO Q4H PRN Aspirin [Halfprin] Med 08/04/19 09:00 Ordered 81 mg PO DAILY Dextrose 50% in Water Med 08/03/19 18:31 Ordered 25 ml IVPUSH ASDIRECTED PRN Famotidine [Pepcid] Med 08/03/19 21:00 Ordered 20 mg PO BID Fluconazole [Diflucan] Med 08/04/19 09:00 Ordered 200 mg PO DAILY Furosemide [Lasix] Med 08/04/19 09:00 Ordered 20 mg PO DAILY Glucagon,Human Recombinant [GlucaGen] Med 08/03/19 18:31 Ordered 1 mg IM ONETIME PRN Heparin Sodium Med 08/03/19 22:00 Ordered 5,000 units SUBCUT Q8HR Insulin Lispro [HumaLOG] Med 08/03/19 21:00 Ordered See Protocol SUBCUT WITHMEALSANDBED Iron Polysaccharides Complex [Ferrex 150] Med 08/04/19 09:00 Ordered 150 mg PO DAILY Lactulose [Cephulac] Med 08/03/19 21:00 Ordered 20 gm PO TID Metoprolol Tartrate [Lopressor] Med 08/04/19 09:00 Ordered 12.5 mg PO DAILY Pantoprazole [ProTONIX] Med 08/03/19 21:00 Ordered 40 mg PO BID Potassium Chloride [Klor-Con 10] Med 08/04/19 08:00 Ordered 20 meq PO WITHBREAKFAST Sodium Chloride 0.9% [Normal Saline] 1,000 ml Med 08/03/19 17:12 Active IV .BOLUS Sucralfate [Carafate] Med 08/03/19 21:00 Ordered 1 gm PO QID cefTRIAXone [Rocephin] 2 gm Med 08/03/19 18:45 Ordered Sodium Chloride 0.9% [Normal Saline] 100 ml IV Q24H Resuscitation Status Routine Resus Stat 08/03/19 18:31 Ordered Medication Orders Acetaminophen (Tylenol) 1,000 mg PO Q4H PRN PRN Reason: Pain Aspirin (Halfprin) 81 mg PO DAILY [facility] Dextrose/Water (Dextrose 50% In Water) 25 ml IVPUSH ASDIRECTED PRN PRN Reason: Hypoglycemia Famotidine (Pepcid) 20 mg PO BID [facility] Furosemide (Lasix) 20 mg PO DAILY [facility] Glucagon (Glucagen) 1 mg IM ONETIME PRN PRN Reason: Hypoglycemia Heparin Sodium (Porcine) (Heparin Sodium) 5,000 units SUBCUT Q8HR [facility] Sodium Chloride (Normal Saline) 1,000 mls @ 200 mls/hr IV .BOLUS ONE Stop: 08/03/19 22:11 Last Admin: 08/03/19 17:22 Dose: 200 mls/hr Ceftriaxone Sodium 2 gm/ (Sodium Chloride) 100 mls @ 200 mls/hr IV Q24H [facility] Insulin Human Lispro (Humalog) 0 unit SUBCUT WITHMEALSANDBED [facility]; Protocol Lactulose (Cephulac) 20 gm PO TID [facility] Metoprolol Tartrate (Lopressor) 12.5 mg PO DAILY [facility] Non-Formulary Medication (Fluconazole [Diflucan]) 200 mg PO DAILY [facility] Pantoprazole Sodium (Protonix) 40 mg PO BID [facility] Polysaccharide Iron Complex (Ferrex 150) 150 mg PO DAILY [facility] Potassium Chloride (Klor-Con 10) 20 meq PO WITHBREAKFAST [facility] Sucralfate (Carafate) 1 gm PO QID [facility] Assessment/Plan Comment:: Acute hepatic encephalopathy: Patient with history of cirrhosis. Presented with altered mental status. Ammonia of 106. Start on lactulose 3 times daily, titrate to 3-4 loose bowel movements daily Continue rifaximin Delirium prevention precautions Fall precautions #Urinary tract infection: Patient with altered mental status in the context of UA positive for nitrites and leukocytes. Urine microscopy is positive for bacteria and WBC. Patient denies all ROS questions Continue Rocephin Follow-up on urine culture Type 2 diabetes Hold metformin Sliding scale insulin hypoglycemia protocol #Cirrhosis #Portal hypertensive gastropathy Continue rifaximin and lactulose Continue Lasix #Ovarian cancer with metastasis to liver Follows with oncology in [place] #Chronic anemia: Hemoglobin of 9.3. Stable at this point. No suspicion of GI bleed Continue to monitor CBC #DVT prophylaxis: Heparin #GI prophylaxis: PPI CODE STATUS: Full code per previous documentation
[2019-08-03] MEDS: Famotidine 20 MG Tab PO SCH (20:45)
[2019-08-03] MEDS: Pantoprazole 40 MG Tab.CR PO SCH (20:45)
[2019-08-03] MEDS: Sucralfate 1 GM Tab PO SCH (20:45)
[2019-08-03] MEDS: Lactulose Soln 10 GM/15 ML 30 ML UD Cup PO SCH (20:46)
[2019-08-03] MEDS: Insulin Lispro 100 Units/ML 3 ML Vial SUBCUT SCH (20:47)
[2019-08-03] MEDS: Heparin Sodium 5,000 Units/ML Vial SUBCUT SCH (21:01)
[2019-08-04] MEDS: Heparin Sodium 5,000 Units/ML Vial SUBCUT SCH ×3 (06:01→21:56)
[2019-08-04 06:59] LABS: ANION GAP 14.6 mEq/L (7-13)
[2019-08-04] MEDS: Insulin Lispro 100 Units/ML 3 ML Vial SUBCUT SCH ×4 (08:18→21:40)
[2019-08-04] MEDS: Iron Polysaccharides Complex 150 MG Cap PO SCH (08:57)
[2019-08-04] MEDS: Famotidine 20 MG Tab PO SCH ×2 (08:58→21:43)
[2019-08-04] MEDS: Potassium Chloride 10 MEQ Tab.ER PO SCH (08:58)
[2019-08-04] MEDS: Aspirin 81 MG Tab.EC PO SCH (08:58)
[2019-08-04] MEDS: Furosemide 20 MG Tab PO SCH (08:58)
[2019-08-04] MEDS: Pantoprazole 40 MG Tab.CR PO SCH ×2 (08:58→16:09)
[2019-08-04] MEDS: Metoprolol Tartrate 25 MG Tab PO SCH (08:59)
[2019-08-04] MEDS: Fluconazole 100 MG Tab PO SCH (08:59)
[2019-08-04] MEDS: Lactulose Soln 10 GM/15 ML 30 ML UD Cup PO SCH ×3 (09:00→21:42)
[2019-08-04] MEDS: Sucralfate 1 GM Tab PO SCH ×4 (09:00→21:43)
--- NOTE | 2019-08-04 10:28 | PCM.PN ---
- General Info Date of Service: 08/04/19 Admission Dx/Problem (Free Text): Admission Diagnosis/Problem Admission Diagnosis/Problem Acute hepatic encephalopathy Subjective Update: Patient remains encephalopathic. No bowel movement since admission. Denies chest pain, shortness of breath, fevers, chills, nausea, vomiting, diarrhea, constipation, dysuria, hematuria, edema, or any other symptoms. - Patient Data Vitals - Most Recent: Last Vital Signs Temp 98.4 F 08/04/19 08:00 Pulse 81 08/04/19 08:59 Resp 16 08/04/19 08:00 BP 125/64 08/04/19 08:59 Pulse Ox 100 08/04/19 08:00 Weight - Most Recent: 156 lb 9.6 oz I&O - Last 24 Hours: Intake & Output 08/03/19 08/04/19 08/04/19 22:59 06:59 14:59 Intake Total 50 1003 250 Balance 50 1003 250 Lab Results Last 24 Hours: Laboratory Results - last 24 hr 08/03/19 08/03/19 08/03/19 Range/Units 16:10 16:23 16:23 WBC 5.8 (5.0-10.0) 10^3/uL RBC 3.73 L (4.2-5.4) 10^6/uL Hgb 9.3 L D (12.0-16.0) g/dL Hct 28.9 L (37.0-47.0) % MCV 77.5 L D (80-100) fL MCH 24.9 L (27.0-34.0) pg MCHC 32.2 L (33.0-35.0) g/dL Plt Count 277 (150-450) 10^3/uL Neut % (Auto) 71.0 (42.2-75.2) % Lymph % (Auto) 11.5 L (20.5-50.1) % [place] % (Auto) 16.3 H (2-8) % Eos % (Auto) 0.7 L (1.0-3.0) % Baso % (Auto) 0.5 (0.0-1.0) % Sodium 141 (136-145) mmol/L Potassium 3.8 (3.5-5.1) mmol/L Chloride 108 H (98-107) mmol/L Carbon Dioxide 22 (21-32) mmol/L Anion Gap 14.8 H (7-13) mEq/L BUN 13 (7-18) mg/dL Creatinine 1.01 (0.55-1.02) mg/dL Est Cr Clr Drug Dosing 43.48 mL/min Estimated GFR (MDRD) 54 BUN/Creatinine Ratio 12.9 (No establ ref range) Glucose 106 H (74-99) mg/dL POC Glucose (83-110) mg/dl Calcium 7.9 L (8.5-10.1) mg/dL Total Bilirubin 1.0 (0.2-1.0) mg/dL Direct Bilirubin (0.0-0.2) mg/dL Indirect Bilirubin AST 22 (15-37) U/L ALT 22 (14-59) U/L Alkaline Phosphatase 121 H (46-116) U/L Ammonia (11-32) umol/L Total Protein 6.1 L (6.4-8.2) g/dL Albumin 2.3 L (3.4-5.0) g/dL Globulin 3.8 Albumin/Globulin Ratio 0.61 Urine Color Yellow (YELLOW) Urine Appearance Turbid (CLEAR) Urine pH 5.5 (5.0-9.0) Ur Specific [place] 1.025 (1.005-1.030) Urine Protein Negative (NEGATIVE) Urine Glucose (UA) Negative (NEGATIVE) Urine Ketones Negative (NEGATIVE) Urine Occult Blood Small H (NEGATIVE) Urine Nitrite Positive H (NEGATIVE) Urine Bilirubin Negative (NEGATIVE) Urine Urobilinogen 0.2 (0.2-1.0) mg/dL Ur Leukocyte Esterase Moderate H (NEGATIVE) Urine RBC 5-10 H /HPF Urine WBC 40-50 H (0-5/HPF) /HPF Ur Epithelial Cells Few (NOT SEEN) /HPF Amorphous Sediment Rare (NOT SEEN) /HPF Urine Bacteria Many H (0-FEW/HPF) /HPF Urine Mucus Few H (NOT SEEN) /LPF 08/03/19 08/03/19 08/04/19 Range/Units 16:52 20:22 06:08 WBC 4.2 L (5.0-10.0) 10^3/uL RBC 3.25 L (4.2-5.4) 10^6/uL Hgb 8.1 L (12.0-16.0) g/dL Hct 25.4 L (37.0-47.0) % MCV 78.2 L (80-100) fL MCH 24.9 L (27.0-34.0) pg MCHC 31.9 L (33.0-35.0) g/dL Plt Count 236 (150-450) 10^3/uL Neut % (Auto) (42.2-75.2) % Lymph % (Auto) (20.5-50.1) % [place] % (Auto) (2-8) % Eos % (Auto) (1.0-3.0) % Baso % (Auto) (0.0-1.0) % Sodium (136-145) mmol/L Potassium (3.5-5.1) mmol/L Chloride (98-107) mmol/L Carbon Dioxide (21-32) mmol/L Anion Gap (7-13) mEq/L BUN (7-18) mg/dL Creatinine (0.55-1.02) mg/dL Est Cr Clr Drug Dosing mL/min Estimated GFR (MDRD) BUN/Creatinine Ratio (No establ ref range) Glucose (74-99) mg/dL POC Glucose 107 (83-110) mg/dl Calcium (8.5-10.1) mg/dL Total Bilirubin (0.2-1.0) mg/dL Direct Bilirubin (0.0-0.2) mg/dL Indirect Bilirubin AST (15-37) U/L ALT (14-59) U/L Alkaline Phosphatase (46-116) U/L Ammonia 106 H (11-32) umol/L Total Protein (6.4-8.2) g/dL Albumin (3.4-5.0) g/dL Globulin Albumin/Globulin Ratio Urine Color (YELLOW) Urine Appearance (CLEAR) Urine pH (5.0-9.0) Ur Specific [place] (1.005-1.030) Urine Protein (NEGATIVE) Urine Glucose (UA) (NEGATIVE) Urine Ketones (NEGATIVE) Urine Occult Blood (NEGATIVE) Urine Nitrite (NEGATIVE) Urine Bilirubin (NEGATIVE) Urine Urobilinogen (0.2-1.0) mg/dL Ur Leukocyte Esterase (NEGATIVE) Urine RBC /HPF Urine WBC (0-5/HPF) /HPF Ur Epithelial Cells (NOT SEEN) /HPF Amorphous Sediment (NOT SEEN) /HPF Urine Bacteria (0-FEW/HPF) /HPF Urine Mucus (NOT SEEN) /LPF 08/04/19 08/04/19 Range/Units 06:08 07:58 WBC (5.0-10.0) 10^3/uL RBC (4.2-5.4) 10^6/uL Hgb (12.0-16.0) g/dL Hct (37.0-47.0) % MCV (80-100) fL MCH (27.0-34.0) pg MCHC (33.0-35.0) g/dL Plt Count (150-450) 10^3/uL Neut % (Auto) (42.2-75.2) % Lymph % (Auto) (20.5-50.1) % [place] % (Auto) (2-8) % Eos % (Auto) (1.0-3.0) % Baso % (Auto) (0.0-1.0) % Sodium 143 (136-145) mmol/L Potassium 3.6 (3.5-5.1) mmol/L Chloride 112 H (98-107) mmol/L Carbon Dioxide 20 L (21-32) mmol/L Anion Gap 14.6 H (7-13) mEq/L BUN 15 (7-18) mg/dL Creatinine 0.96 (0.55-1.02) mg/dL Est Cr Clr Drug Dosing 45.74 mL/min Estimated GFR (MDRD) 57 BUN/Creatinine Ratio (No establ ref range) Glucose 94 (74-99) mg/dL POC Glucose 97 (83-110) mg/dl Calcium 7.8 L (8.5-10.1) mg/dL Total Bilirubin 0.6 (0.2-1.0) mg/dL Direct Bilirubin 0.3 H (0.0-0.2) mg/dL Indirect Bilirubin 0.3 AST 20 (15-37) U/L ALT 18 (14-59) U/L Alkaline Phosphatase 106 (46-116) U/L Ammonia (11-32) umol/L Total Protein 5.3 L (6.4-8.2) g/dL Albumin 2.0 L (3.4-5.0) g/dL Globulin 3.3 Albumin/Globulin Ratio 0.61 Urine Color (YELLOW) Urine Appearance (CLEAR) Urine pH (5.0-9.0) Ur Specific [place] (1.005-1.030) Urine Protein (NEGATIVE) Urine Glucose (UA) (NEGATIVE) Urine Ketones (NEGATIVE) Urine Occult Blood (NEGATIVE) Urine Nitrite (NEGATIVE) Urine Bilirubin (NEGATIVE) Urine Urobilinogen (0.2-1.0) mg/dL Ur Leukocyte Esterase (NEGATIVE) Urine RBC /HPF Urine WBC (0-5/HPF) /HPF Ur Epithelial Cells (NOT SEEN) /HPF Amorphous Sediment (NOT SEEN) /HPF Urine Bacteria (0-FEW/HPF) /HPF Urine Mucus (NOT SEEN) /LPF Tom Results Last 24 Hours: Microbiology 08/03/19 16:10 Urine Culture - Preliminary Urine, Voided Med Orders - Current: Current Medications Acetaminophen (Tylenol) 1,000 mg PO Q4H PRN PRN Reason: Pain Aspirin (Halfprin) 81 mg PO DAILY [facility] Last Admin: 08/04/19 08:58 Dose: 81 mg Dextrose/Water (Dextrose 50% In Water) 25 ml IVPUSH ASDIRECTED PRN PRN Reason: Hypoglycemia Famotidine (Pepcid) 20 mg PO BID [facility] Last Admin: 08/04/19 08:58 Dose: 20 mg Fluconazole (Diflucan) 200 mg PO DAILY [facility] Last Admin: 08/04/19 08:59 Dose: 200 mg Furosemide (Lasix) 20 mg PO DAILY [facility] Last Admin: 08/04/19 08:58 Dose: 20 mg Glucagon (Glucagen) 1 mg IM ONETIME PRN PRN Reason: Hypoglycemia Heparin Sodium (Porcine) (Heparin Sodium) 5,000 units SUBCUT Q8HR [facility] Last Admin: 08/04/19 06:01 Dose: 5,000 units Ceftriaxone Sodium 2 gm/ (Sodium Chloride) 100 mls @ 200 mls/hr IV Q24H [facility] Lactated Ringer's (Ringers, Lactated) 1,000 mls @ 125 mls/hr IV ASDIRECTED [facility] Stop: 08/04/19 18:31 Insulin Human Lispro (Humalog) 0 unit SUBCUT WITHMEALSANDBED [facility]; Protocol Last Admin: 08/04/19 08:18 Dose: Not Given Lactulose (Cephulac) 20 gm PO TID [facility] Last Admin: 08/04/19 09:00 Dose: 20 gm Metoprolol Tartrate (Lopressor) 12.5 mg PO DAILY [facility] Last Admin: 08/04/19 08:59 Dose: 12.5 mg Pantoprazole Sodium (Protonix) 40 mg PO BID [facility] Last Admin: 08/04/19 08:58 Dose: 40 mg Polysaccharide Iron Complex (Ferrex 150) 150 mg PO DAILY [facility] Last Admin: 08/04/19 08:57 Dose: 150 mg Potassium Chloride (Klor-Con 10) 20 meq PO WITHBREAKFAST [facility] Last Admin: 08/04/19 08:58 Dose: 20 meq Rifaximin (Xifaxan) 550 mg PO BID [facility] Sucralfate (Carafate) 1 gm PO QID [facility] Last Admin: 08/04/19 09:00 Dose: 1 gm Discontinued Medications Sodium Chloride (Normal Saline) 1,000 mls @ 200 mls/hr IV .BOLUS ONE Stop: 08/03/19 22:11 Last Admin: 08/03/19 17:22 Dose: 200 mls/hr Ceftriaxone Sodium 1 gm/ (Sodium Chloride) 50 mls @ 100 mls/hr IV ONETIME ONE Stop: 08/03/19 17:42 Last Infusion: 08/03/19 17:58 Dose: Infused Sodium Chloride (Normal Saline) 1,000 mls @ 125 mls/hr IV ASDIRECTED [facility] Stop: 08/04/19 18:31 - Exam General: Alert, Other (Confused. ) HEENT: Pupils Equal, Pupils Reactive Neck: Supple Lungs: Clear to Auscultation, Normal Respiratory Effort Cardiovascular: Regular Rate, Regular Rhythm GI/Abdominal Exam: Normal Bowel Sounds, Soft, Non-Tender, No Distention Extremities: Normal Inspection, Non-Tender, No Pedal Edema Skin: Warm, Dry, Intact Neurological: No New Focal Deficit Psy/Mental Status: Alert (but confused. ) Sepsis Event Note - Evaluation Sepsis Screening Result: No Definite Risk - Focused Exam Vital Signs: Vital Signs Temp Pulse Pulse Resp BP BP BP 08/04/19 08:59 81 125/64 08/04/19 08:00 98.4 F 81 16 125/64 08/04/19 00:00 97.8 F 87 18 100/64 Pulse Ox 08/04/19 08:59 08/04/19 08:00 100 08/04/19 00:00 100 Date Exam was Performed: 08/04/19 Time Exam was Performed: 10:25 - Problem List & Annotations (1) Cirrhosis of liver SNOMED Code(s): 68975717 Code(s): K74.60 - UNSPECIFIED CIRRHOSIS OF LIVER Status: Acute Current Visit: Yes (2) Acute encephalopathy SNOMED Code(s): 72224159, 800497781 Code(s): G93.40 - ENCEPHALOPATHY, UNSPECIFIED Status: Acute Current Visit : No (3) Anemia SNOMED Code(s): 132524244 Code(s): D64.9 - ANEMIA, UNSPECIFIED Status: Acute Current Visit: No Qualifiers: Anemia type: unspecified type Qualified Code(s): D64.9 - Anemia, unspecified (4) Liver metastases Status: Acute Current Visit: No (5) UTI (urinary tract infection) SNOMED Code(s): 73028920 Code(s): N39.0 - URINARY TRACT INFECTION, SITE NOT SPECIFIED Status: Acute Current Visit: No Qualifiers: Urinary tract infection type: acute cystitis Hematuria presence: without hematuria Qualified Code(s): N30.00 - Acute cystitis without hematuria - Problem List Review Problem List Initiated/Reviewed/Updated: Yes - My Orders Last 24 Hours: My Active Orders 08/03/19 18:31 Blood Glucose Check, Bedside [RC] WITHMEALSANDBED Up With Assistance [RC] ASDIRECTED Dextrose 50% in Water 25 ml IVPUSH ASDIRECTED PRN Glucagon,Human Recombinant [GlucaGen] 1 mg IM ONETIME PRN Resuscitation Status Routine 08/03/19 18:32 Diabetes Education [RC] Click to Edit Notify Provider [RC] PRN Oxygen Therapy [RC] PRN VTE/DVT Education [RC] PER UNIT ROUTINE Vital Signs [RC] 00,04,08,12,16,20 08/03/19 18:34 Intake and Output [RC] QSHIFT 08/03/19 18:37 Acetaminophen [Tylenol] 1,000 mg PO Q4H PRN 08/03/19 21:00 Famotidine [Pepcid] 20 mg PO BID Insulin Lispro [HumaLOG] See Protocol SUBCUT WITHMEALSANDBED Lactulose [Cephulac] 20 gm PO TID Pantoprazole [ProTONIX] 40 mg PO BID Sucralfate [Carafate] 1 gm PO QID 08/03/19 22:00 Heparin Sodium 5,000 units SUBCUT Q8HR 08/03/19 Dinner Consistent Carbohydrate Diet [DIET] 08/04/19 00:39 Urinary Catheter Assessment [RC] 08/04/19 00:45 Insert [place] Catheter [Insert Urinary Catheter] [OM.PC] Q24H 08/04/19 08:00 Potassium Chloride [Klor-Con 10] 20 meq PO WITHBREAKFAST 08/04/19 09:00 Aspirin [Halfprin] 81 mg PO DAILY Fluconazole [Diflucan] 200 mg PO DAILY Furosemide [Lasix] 20 mg PO DAILY [place] Polysaccharides Complex [Ferrex 150] 150 mg PO DAILY Metoprolol Tartrate [Lopressor] 12.5 mg PO DAILY 08/04/19 09:15 Rifaximin [Xifaxan] 550 mg PO BID 08/04/19 09:30 Abdomen 1V Flat [CR] Routine 08/04/19 10:30 Lactated Ringers @ 125 MLS/HR(1,000ml) Lactated Ringers [Ringers, Lactated] 1, 000 ml IV ASDIRECTED 08/04/19 16:00 cefTRIAXone [Rocephin] 2 gm Sodium Chloride 0.9% [Normal Saline] 100 ml IV Q24H 08/05/19 05:11 BASIC METABOLIC PANEL,BMP [CHEM] AM MAGNESIUM [CHEM] AM PHOSPHORUS [CHEM] AM - Plan Plan:: #Acute hepatic encephalopathy: Patient with history of cirrhosis. Presented with altered mental status. Ammonia of 106. Continue lactulose 3 times daily, titrate to 3-4 loose bowel movements daily Continue rifaximin Delirium prevention precautions Fall precautions #Urinary tract infection: Patient with altered mental status in the context of UA positive for nitrites and leukocytes. Urine microscopy is positive for bacteria and WBC. UA positive for G- rods. Patient denies all ROS questions Continue Rocephin Follow-up on urine culture for speciation and sensitivities #Dehydration: Patient with low urine output and poor skin turgor. IVF Strict I/Os. #Type 2 diabetes Hold metformin Sliding scale insulin hypoglycemia protocol #Cirrhosis #Portal hypertensive gastropathy Continue rifaximin and lactulose Continue Lasix #Ovarian cancer with metastasis to liver Follows with oncology in [place] #Chronic anemia: Hemoglobin of 9.3. Stable at this point. No suspicion of GI bleed Continue to monitor CBC #DVT prophylaxis: Heparin #GI prophylaxis: PPI CODE STATUS: Full code per previous documentation
[2019-08-04] MEDS ORDERED: Sodium Chloride 0.9% 1,000 ML IV SCH (10:30)
[2019-08-04] MEDS ORDERED: Lactated Ringers 1,000 ML IV SCH (10:30)
[2019-08-04] MEDS: Rifaximin 550 MG Tab PO SCH ×2 (10:31→21:43)
[2019-08-04] MEDS: cefTRIAXone 2 GM in Sodium Chloride 0.9% 100 ML IV SCH (16:08)
[2019-08-05] MEDS: Pantoprazole 40 MG Tab.CR PO SCH ×2 (06:51→16:43)
[2019-08-05] MEDS: Heparin Sodium 5,000 Units/ML Vial SUBCUT SCH ×3 (06:54→21:25)
[2019-08-05 07:15] LABS: ANION GAP 11.5 mEq/L (7-13); CHLORIDE,CL 110 mmol/L (98-107); SODIUM,NA 141 mmol/L (136-145)
[2019-08-05] MEDS: Insulin Lispro 100 Units/ML 3 ML Vial SUBCUT SCH ×4 (09:24→21:29)
[2019-08-05] MEDS: Furosemide 20 MG Tab PO SCH (09:26)
[2019-08-05] MEDS: Potassium Chloride 10 MEQ Tab.ER PO SCH (09:26)
[2019-08-05] MEDS: Aspirin 81 MG Tab.EC PO SCH (09:26)
[2019-08-05] MEDS: Rifaximin 550 MG Tab PO SCH ×2 (09:27→21:24)
[2019-08-05] MEDS: Sucralfate 1 GM Tab PO SCH ×4 (09:28→21:24)
[2019-08-05] MEDS: Metoprolol Tartrate 25 MG Tab PO SCH (09:28)
[2019-08-05] MEDS: Fluconazole 100 MG Tab PO SCH (09:28)
[2019-08-05] MEDS: Iron Polysaccharides Complex 150 MG Cap PO SCH (09:29)
[2019-08-05] MEDS: Famotidine 20 MG Tab PO SCH ×2 (09:29→21:24)
[2019-08-05] MEDS: Lactulose Soln 10 GM/15 ML 30 ML UD Cup PO SCH ×3 (09:38→21:24)
--- NOTE | 2019-08-05 11:06 | PCM.PN ---
- General Info Date of Service: 08/05/19 Admission Dx/Problem (Free Text): Admission Diagnosis/Problem Admission Diagnosis/Problem Acute hepatic encephalopathy Subjective Update: Patient was seen in room and she is better today , she is no more confused, Denies chest pain, shortness of breath, fevers, chills, nausea, vomiting, dysuria, appetite is good Functional Status: Reports: Pain Controlled, Tolerating Diet, Ambulating, Urinating - Review of Systems General: Reports: Weakness, Appetite (is improving). Denies: Fever, Malaise, Chills HEENT: Denies: Headaches, Sinus Congestion, Sore Throat, Visual Changes Pulmonary: Denies: Shortness of Breath, Cough, Sputum, Wheezing Cardiovascular: Denies: Chest Pain, Edema, Lightheadedness Gastrointestinal: Denies: Abdominal Pain, Diarrhea, Difficulty Swallowing, Nausea, Vomiting Genitourinary: Denies: Dysuria, Burning, Urgency, Flank Pain Musculoskeletal: Denies: Neck Pain, Shoulder Pain, Leg Pain Skin: Denies: Cyanosis, Jaundice, Bruising, Pruritis Neurological: Reports: Confusion (mild). Denies: Paresthesia, Tingling, Tremors Psychiatric: Denies: Anxiety, Agitation, Hallucinations - Patient Data Vitals - Most Recent: Last Vital Signs Temp 36.8 C 08/05/19 08:00 Pulse 77 08/05/19 09:28 Resp 20 08/05/19 08:00 BP 96/58 L 08/05/19 09:28 Pulse Ox 100 08/05/19 08:00 Weight - Most Recent: 71.35 kg I&O - Last 24 Hours: Intake & Output 08/04/19 08/05/19 08/05/19 22:59 06:59 14:59 Intake Total 1236 120 490 Output Total 750 240 130 Balance 486 -120 360 Lab Results Last 24 Hours: Laboratory Results - last 24 hr 08/04/19 08/04/19 08/04/19 Range/Units 11:50 17:04 21:38 Sodium (136-145) mmol/L Potassium (3.5-5.1) mmol/L Chloride (98-107) mmol/L Carbon Dioxide (21-32) mmol/L Anion Gap (7-13) mEq/L BUN (7-18) mg/dL Creatinine (0.55-1.02) mg/dL Est Cr Clr Drug Dosing mL/min Estimated GFR (MDRD) Glucose (74-99) mg/dL POC Glucose 118 H 122 H 136 H (83-110) mg/dl Calcium (8.5-10.1) mg/dL Phosphorus (2.6-4.7) mg/dL Magnesium (1.8-2.4) mg/dL 08/05/19 08/05/19 Range/Units 06:20 07:58 Sodium 141 (136-145) mmol/L Potassium 3.5 (3.5-5.1) mmol/L Chloride 110 H (98-107) mmol/L Carbon Dioxide 23 (21-32) mmol/L Anion Gap 11.5 (7-13) mEq/L BUN 9 (7-18) mg/dL Creatinine 0.79 (0.55-1.02) mg/dL Est Cr Clr Drug Dosing 55.58 mL/min Estimated GFR (MDRD) > 60 Glucose 94 (74-99) mg/dL POC Glucose 104 (83-110) mg/dl Calcium 7.1 L (8.5-10.1) mg/dL Phosphorus 3.0 (2.6-4.7) mg/dL Magnesium 1.7 L (1.8-2.4) mg/dL Tom Results Last 24 Hours: Microbiology 08/03/19 16:10 Urine Culture - Final Urine, Voided Klebsiella Pneumoniae Escherichia Coli Med Orders - Current: Current Medications Acetaminophen (Tylenol) 1,000 mg PO Q4H PRN PRN Reason: Pain Aspirin (Halfprin) 81 mg PO DAILY [facility] Last Admin: 08/05/19 09:26 Dose: 81 mg Dextrose/Water (Dextrose 50% In Water) 25 ml IVPUSH ASDIRECTED PRN PRN Reason: Hypoglycemia Famotidine (Pepcid) 20 mg PO BID [facility] Last Admin: 08/05/19 09:29 Dose: 20 mg Fluconazole (Diflucan) 200 mg PO DAILY [facility] Last Admin: 08/05/19 09:28 Dose: 200 mg Furosemide (Lasix) 20 mg PO DAILY [facility] Last Admin: 08/05/19 09:26 Dose: 20 mg Glucagon (Glucagen) 1 mg IM ONETIME PRN PRN Reason: Hypoglycemia Heparin Sodium (Porcine) (Heparin Sodium) 5,000 units SUBCUT Q8HR [facility] Last Admin: 08/05/19 06:54 Dose: 5,000 units Ceftriaxone Sodium 2 gm/ (Sodium Chloride) 100 mls @ 200 mls/hr IV Q24H [facility] Last Infusion: 08/04/19 17:16 Dose: Infused Insulin Human Lispro (Humalog) 0 unit SUBCUT WITHMEALSANDBED [facility]; Protocol Last Admin: 08/05/19 09:24 Dose: Not Given Lactulose (Cephulac) 20 gm PO TID [facility] Last Admin: 08/05/19 09:38 Dose: Not Given Metoprolol Tartrate (Lopressor) 12.5 mg PO DAILY [facility] Last Admin: 08/05/19 09:28 Dose: 12.5 mg Pantoprazole Sodium (Protonix) 40 mg PO BIDAC [facility] Last Admin: 08/05/19 06:51 Dose: 40 mg Polysaccharide Iron Complex (Ferrex 150) 150 mg PO DAILY [facility] Last Admin: 08/05/19 09:29 Dose: 150 mg Potassium Chloride (Klor-Con 10) 20 meq PO WITHBREAKFAST [facility] Last Admin: 08/05/19 09:26 Dose: 20 meq Rifaximin (Xifaxan) 550 mg PO BID [facility] Last Admin: 08/05/19 09:27 Dose: 550 mg Sucralfate (Carafate) 1 gm PO QID [facility] Last Admin: 08/05/19 09:28 Dose: 1 gm Discontinued Medications Sodium Chloride (Normal Saline) 1,000 mls @ 200 mls/hr IV .BOLUS ONE Stop: 08/03/19 22:11 Last Admin: 08/03/19 17:22 Dose: 200 mls/hr Ceftriaxone Sodium 1 gm/ (Sodium Chloride) 50 mls @ 100 mls/hr IV ONETIME ONE Stop: 08/03/19 17:42 Last Infusion: 08/03/19 17:58 Dose: Infused Sodium Chloride (Normal Saline) 1,000 mls @ 125 mls/hr IV ASDIRECTED [facility] Stop: 08/04/19 18:31 Lactated Ringer's (Ringers, Lactated) 1,000 mls @ 125 mls/hr IV ASDIRECTED [facility] Stop: 08/04/19 18:31 Last Infusion: 08/04/19 19:31 Dose: Infused Pantoprazole Sodium (Protonix) 40 mg PO BID [facility] Last Admin: 08/04/19 08:58 Dose: 40 mg - Exam Quality Assessment: DVT Prophylaxis. No: Supplemental Oxygen, Urine Catheter General: Alert, Oriented, Cooperative, No Acute Distress HEENT: Pupils Equal, Pupils Reactive, EOMI, Mucous Membr. Moist/[place] Neck: Supple, No JVD, No Thyromegaly Lungs: Clear to Auscultation, Normal Respiratory Effort Cardiovascular: Regular Rate, Regular Rhythm, Murmurs GI/Abdominal Exam: Normal Bowel Sounds, Soft, No Distention. No: Guarding, Rigid, Rebound (Female) Exam: Deferred Back Exam: Normal Inspection, Full Range of Motion Extremities: Normal Inspection, No Pedal Edema Skin: Warm, Dry, Intact Neurological: No New Focal Deficit Psy/Mental Status: Alert, Normal Affect, Normal Mood Sepsis Event Note - Evaluation Sepsis Screening Result: No Definite Risk - Focused Exam Vital Signs: Vital Signs Temp Pulse Pulse Resp BP BP BP 08/05/19 09:28 77 96/58 L 08/05/19 08:00 36.8 C 72 20 96/52 L 96/58 L 08/05/19 04:05 37.2 C 72 18 93/45 L 08/04/19 23:50 78 18 92/41 L 08/04/19 23:30 75 18 83/41 L 08/04/19 23:25 36.9 C 75 18 88/57 L Pulse Ox 08/05/19 09:28 08/05/19 08:00 100 08/05/19 04:05 100 08/04/19 23:50 100 08/04/19 23:30 100 08/04/19 23:25 100 Date Exam was Performed: 08/05/19 Time Exam was Performed: 11:06 - Problem List Review Problem List Initiated/Reviewed/Updated: Yes - Plan Plan:: Ms Brady is a 74-year-old female with medical history significant for ovarian cancer with metastasis to the liver, hepatic cirrhosis, hepatic encephalopathy, type 2 diabetes, history of upper GI bleed, and history of ascites was brought to the ED by EMS for confusion. In the ED, patient was unable to state why she was sent to the ED. Patient did not know the date and time and year. Also was disoriented to self. Patient does not recall last time she had chemotherapy. she denies chest pain, shortness of breath, fevers, chills, nausea, vomiting, diarrhea, constipation, dysuria, hematuria, edema, or any other symptoms. In the ED, patient's ammonia was elevated at 106. AST and ALT were normal. Alk phos was 121. CBC showed WBC count of 5.8 with hemoglobin of 9.3 and platelet count of 227. UA was positive for leukocytes and nitrites. urine culture is now positive and growing Ecoli and Klebsilella. Impression and Plan: 1. Acute hepatic encephalopathy: Patient with history of cirrhosis. Presented with altered mental status. and the Ammonia level was 106. -Will Continue lactulose 3 times daily, plan to have 3-4 loose bowel movements daily -Continue rifaximin Delirium prevention precautions Fall precautions 2. Urinary tract infection: Patient with altered mental status and UTI also have contribution to change in mental status Urine culture is positive for E.coli and Klebsiella -Will Continue Rocephin -Both e.coli and Klebsiella are sensitive to Ceftriaxone 3, Type 2 diabetes -Will continue to Hold metformin -continue Sliding scale insulin hypoglycemia protocol 4. Liver Cirrhosis with encephalopathy -Continue rifaximin and lactulose -Continue Lasix 5. Ovarian cancer with metastasis to liver Follows with oncology in [place] 6 Chronic anemia: Hemoglobin of 8.1 g/dl on 08/03 .recheck CBC in AM ( hgb dropped from 9.3 on 08/02 to 8.1 on 08/03 - has received some IV fluids) 6. DVT prophylaxis: Heparin 7. GI prophylaxis: PPI CODE STATUS: Full code per previous documentation
[2019-08-05] MEDS: cefTRIAXone 2 GM in Sodium Chloride 0.9% 100 ML IV SCH (16:37)
[2019-08-06] MEDS: Pantoprazole 40 MG Tab.CR PO SCH ×2 (05:55→16:41)
[2019-08-06] MEDS: Heparin Sodium 5,000 Units/ML Vial SUBCUT SCH ×4 (05:55→21:13)
[2019-08-06 06:22] LABS: ANION GAP 11.6 mEq/L (7-13); CHLORIDE,CL 110 mmol/L (98-107); SODIUM,NA 141 mmol/L (136-145)
[2019-08-06] MEDS: Insulin Lispro 100 Units/ML 3 ML Vial SUBCUT SCH ×4 (08:09→21:12)
[2019-08-06] MEDS: Iron Polysaccharides Complex 150 MG Cap PO SCH (08:43)
[2019-08-06] MEDS: Potassium Chloride 10 MEQ Tab.ER PO SCH (08:43)
[2019-08-06] MEDS: Aspirin 81 MG Tab.EC PO SCH (08:43)
[2019-08-06] MEDS: Rifaximin 550 MG Tab PO SCH ×2 (08:44→20:32)
[2019-08-06] MEDS: Fluconazole 100 MG Tab PO SCH (08:44)
[2019-08-06] MEDS: Furosemide 20 MG Tab PO SCH (08:44)
[2019-08-06] MEDS: Sucralfate 1 GM Tab PO SCH ×4 (08:44→20:32)
[2019-08-06] MEDS: Famotidine 20 MG Tab PO SCH ×2 (08:44→20:32)
[2019-08-06] MEDS: Metoprolol Tartrate 25 MG Tab PO SCH (08:45)
[2019-08-06] MEDS: Lactulose Soln 10 GM/15 ML 30 ML UD Cup PO SCH ×4 (08:46→20:31)
--- NOTE | 2019-08-06 11:16 | PCM.PN ---
- General Info Date of Service: 08/06/19 Admission Dx/Problem (Free Text): Admission Diagnosis/Problem Admission Diagnosis/Problem Acute hepatic encephalopathy Subjective Update: Patient was seen in room and she is better today , she is mildly confused, Denies chest pain, shortness of breath, fevers, chills, nausea, vomiting, dysuria, appetite is good, she is refusing lactulose and advise her take 3 times a day to improve her confusion Functional Status: Reports: Pain Controlled, Tolerating Diet, Ambulating, Urinating - Review of Systems General: Reports: Weakness, Malaise, Chills, Appetite (acceptable). Denies: Fever HEENT: Denies: Headaches, Sinus Congestion, Sore Throat, Visual Changes Pulmonary: Denies: Shortness of Breath, Cough, Sputum, Wheezing Cardiovascular: Denies: Chest Pain, Dyspnea on Exertion, Edema, Lightheadedness Gastrointestinal: Denies: Abdominal Pain, Constipation, Nausea, Vomiting Genitourinary: Denies: Dysuria, Frequency, Urgency, Flank Pain Musculoskeletal: Denies: Neck Pain, Shoulder Pain, Foot Pain Skin: Denies: Cyanosis, Jaundice, Bruising, Pruritis, Rash Neurological: Reports: Confusion, Weakness. Denies: Tremors, Change in Speech Psychiatric: Reports: Confusion. Denies: Anxiety, Hallucinations - Patient Data Vitals - Most Recent: Last Vital Signs Temp 36.3 C 08/06/19 07:43 Pulse 70 08/06/19 08:45 Resp 18 08/06/19 07:43 BP 108/49 L 08/06/19 08:45 Pulse Ox 100 08/06/19 07:43 Weight - Most Recent: 71.35 kg I&O - Last 24 Hours: Intake & Output 08/05/19 08/06/19 08/06/19 22:59 06:59 14:59 Intake Total 420 50 320 Output Total 475 175 Balance -55 -125 320 Lab Results Last 24 Hours: Laboratory Results - last 24 hr 08/05/19 08/05/19 08/05/19 Range/Units 11:48 16:49 20:43 WBC (5.0-10.0) 10^3/uL RBC (4.2-5.4) 10^6/uL Hgb (12.0-16.0) g/dL Hct (37.0-47.0) % MCV (80-100) fL MCH (27.0-34.0) pg MCHC (33.0-35.0) g/dL Plt Count (150-450) 10^3/uL Neut % (Auto) (42.2-75.2) % Lymph % (Auto) (20.5-50.1) % [place] % (Auto) (2-8) % Eos % (Auto) (1.0-3.0) % Baso % (Auto) (0.0-1.0) % Sodium (136-145) mmol/L Potassium (3.5-5.1) mmol/L Chloride (98-107) mmol/L Carbon Dioxide (21-32) mmol/L Anion Gap (7-13) mEq/L BUN (7-18) mg/dL Creatinine (0.55-1.02) mg/dL Est Cr Clr Drug Dosing mL/min Estimated GFR (MDRD) Glucose (74-99) mg/dL POC Glucose 131 H 131 H 128 H (83-110) mg/dl Calcium (8.5-10.1) mg/dL 08/06/19 08/06/19 08/06/19 Range/Units 06:01 06:01 07:49 WBC 4.0 L (5.0-10.0) 10^3/uL RBC 3.66 L (4.2-5.4) 10^6/uL Hgb 9.0 L (12.0-16.0) g/dL Hct 28.7 L (37.0-47.0) % MCV 78.4 L (80-100) fL MCH 24.6 L (27.0-34.0) pg MCHC 31.4 L (33.0-35.0) g/dL Plt Count 250 (150-450) 10^3/uL Neut % (Auto) 44.2 (42.2-75.2) % Lymph % (Auto) 24.0 (20.5-50.1) % [place] % (Auto) 27.0 H (2-8) % Eos % (Auto) 3.8 H (1.0-3.0) % Baso % (Auto) 1.0 (0.0-1.0) % Sodium 141 (136-145) mmol/L Potassium 3.6 (3.5-5.1) mmol/L Chloride 110 H (98-107) mmol/L Carbon Dioxide 23 (21-32) mmol/L Anion Gap 11.6 (7-13) mEq/L BUN 10 (7-18) mg/dL Creatinine 0.83 (0.55-1.02) mg/dL Est Cr Clr Drug Dosing 52.91 mL/min Estimated GFR (MDRD) > 60 Glucose 118 H (74-99) mg/dL POC Glucose 122 H (83-110) mg/dl Calcium 7.1 L (8.5-10.1) mg/dL Tom Results Last 24 Hours: Microbiology 08/03/19 16:10 Urine Culture - Final Urine, Voided Klebsiella Pneumoniae Escherichia Coli Med Orders - Current: Current Medications Acetaminophen (Tylenol) 1,000 mg PO Q4H PRN PRN Reason: Pain Aspirin (Halfprin) 81 mg PO DAILY [facility] Last Admin: 08/06/19 08:43 Dose: 81 mg Dextrose/Water (Dextrose 50% In Water) 25 ml IVPUSH ASDIRECTED PRN PRN Reason: Hypoglycemia Famotidine (Pepcid) 20 mg PO BID [facility] Last Admin: 08/06/19 08:44 Dose: 20 mg Fluconazole (Diflucan) 200 mg PO DAILY [facility] Last Admin: 08/06/19 08:44 Dose: 200 mg Furosemide (Lasix) 20 mg PO DAILY [facility] Last Admin: 08/06/19 08:44 Dose: 20 mg Glucagon (Glucagen) 1 mg IM ONETIME PRN PRN Reason: Hypoglycemia Heparin Sodium (Porcine) (Heparin Sodium) 5,000 units SUBCUT Q8HR [facility] Last Admin: 08/06/19 05:55 Dose: 5,000 units Ceftriaxone Sodium 2 gm/ (Sodium Chloride) 100 mls @ 200 mls/hr IV Q24H [facility] Last Admin: 08/05/19 16:37 Dose: 200 mls/hr Insulin Human Lispro (Humalog) 0 unit SUBCUT WITHMEALSANDBED [facility]; Protocol Last Admin: 08/06/19 08:09 Dose: Not Given Lactulose (Cephulac) 20 gm PO TID [facility] Last Admin: 08/06/19 10:55 Dose: 20 gm Metoprolol Tartrate (Lopressor) 12.5 mg PO DAILY [facility] Last Admin: 08/06/19 08:45 Dose: Not Given Pantoprazole Sodium (Protonix) 40 mg PO BIDAC [facility] Last Admin: 08/06/19 05:55 Dose: 40 mg Polysaccharide Iron Complex (Ferrex 150) 150 mg PO DAILY [facility] Last Admin: 08/06/19 08:43 Dose: 150 mg Potassium Chloride (Klor-Con 10) 20 meq PO WITHBREAKFAST [facility] Last Admin: 08/06/19 08:43 Dose: 20 meq Rifaximin (Xifaxan) 550 mg PO BID [facility] Last Admin: 08/06/19 08:44 Dose: 550 mg Sucralfate (Carafate) 1 gm PO QID [facility] Last Admin: 08/06/19 08:44 Dose: 1 gm Discontinued Medications Sodium Chloride (Normal Saline) 1,000 mls @ 200 mls/hr IV .BOLUS ONE Stop: 08/03/19 22:11 Last Admin: 08/03/19 17:22 Dose: 200 mls/hr Ceftriaxone Sodium 1 gm/ (Sodium Chloride) 50 mls @ 100 mls/hr IV ONETIME ONE Stop: 08/03/19 17:42 Last Infusion: 08/03/19 17:58 Dose: Infused Sodium Chloride (Normal Saline) 1,000 mls @ 125 mls/hr IV ASDIRECTED [facility] Stop: 08/04/19 18:31 Lactated Ringer's (Ringers, Lactated) 1,000 mls @ 125 mls/hr IV ASDIRECTED [facility] Stop: 08/04/19 18:31 Last Infusion: 08/04/19 19:31 Dose: Infused Pantoprazole Sodium (Protonix) 40 mg PO BID [facility] Last Admin: 08/04/19 08:58 Dose: 40 mg - Exam Quality Assessment: DVT Prophylaxis. No: Supplemental Oxygen, Central Line/PICC , Urine Catheter General: Alert, Oriented (only to self and place not to time), Cooperative, No Acute Distress, Mild Distress HEENT: Pupils Equal, Pupils Reactive, EOMI, Mucous Membr. Moist/[place] Neck: Supple, No JVD, No Thyromegaly Lungs: Clear to Auscultation, Normal Respiratory Effort. No: Crackles, Wheezing Cardiovascular: Regular Rate, Regular Rhythm, Murmurs GI/Abdominal Exam: Normal Bowel Sounds, Soft, Non-Tender. No: Guarding, Rigid, Rebound (Female) Exam: Deferred Back Exam: Normal Inspection Extremities: Normal Inspection, No Pedal Edema Skin: Warm, Dry, Intact Neurological: No New Focal Deficit Psy/Mental Status: Alert, Normal Affect, Normal Mood Sepsis Event Note - Evaluation Sepsis Screening Result: No Definite Risk - Focused Exam Vital Signs: Vital Signs Temp Pulse Pulse Resp BP BP BP 08/06/19 08:45 70 108/49 L 08/06/19 07:43 36.3 C 70 18 108/49 L 08/06/19 03:10 37.0 C 71 18 112/52 L 08/05/19 23:41 37.1 C 69 18 101/62 Pulse Ox 08/06/19 08:45 08/06/19 07:43 100 08/06/19 03:10 100 08/05/19 23:41 100 Date Exam was Performed: 08/06/19 Time Exam was Performed: 11:11 - Problem List Review Problem List Initiated/Reviewed/Updated: Yes - Plan Plan:: Ms Brady is a 74-year-old female with medical history significant for ovarian cancer with metastasis to the liver, hepatic cirrhosis, hepatic encephalopathy, type 2 diabetes, history of upper GI bleed, and history of ascites was brought to the ED by EMS for confusion. In the ED, patient was unable to state why she was sent to the ED. Patient did not know the date and time and year. Also was disoriented to self. Patient does not recall last time she had chemotherapy. she denies chest pain, shortness of breath, fevers, chills, nausea, vomiting, diarrhea, constipation, dysuria, hematuria, edema, or any other symptoms. In the ED, patient's ammonia was elevated at 106. AST and ALT were normal. Alk phos was 121. CBC showed WBC count of 5.8 with hemoglobin of 9.3 and platelet count of 227. UA was positive for leukocytes and nitrites. urine culture is now positive and growing Ecoli and Klebsilella. Impression and Plan: 1. Acute hepatic encephalopathy: Patient with history of cirrhosis. Presented with altered mental status. and the Ammonia level was 106. -Will Continue lactulose 3 times daily, plan to have 3-4 loose bowel movements daily, discussed with pt to take them as schedule, she is refusing -Continue rifaximin Delirium prevention precautions Fall precautions 2. Urinary tract infection: Patient with altered mental status and UTI also have contribution to change in mental status Urine culture is positive for E.coli and Klebsiella -Will Continue Rocephin -Both e.coli and Klebsiella are sensitive to Ceftriaxone 3, Type 2 diabetes -Will continue to Hold metformin -continue Sliding scale insulin hypoglycemia protocol 4. Liver Cirrhosis with encephalopathy -Continue rifaximin and lactulose -Continue Lasix 5. Ovarian cancer with metastasis to liver Follows with oncology in [place] 6 Chronic anemia: Hemoglobin of 9.0 g/dl on 6. DVT prophylaxis: Heparin 7. GI prophylaxis: PPI CODE STATUS: Full code per previous documentation
[2019-08-06] MEDS: cefTRIAXone 2 GM in Sodium Chloride 0.9% 100 ML IV SCH (16:37)
[2019-08-07] MEDS: Heparin Sodium 5,000 Units/ML Vial SUBCUT SCH (05:53)
[2019-08-07] MEDS: Pantoprazole 40 MG Tab.CR PO SCH (05:53)
[2019-08-07 06:40] LABS: ANION GAP 12.1 mEq/L (7-13); CHLORIDE,CL 107 mmol/L (98-107); SODIUM,NA 138 mmol/L (136-145)
[2019-08-07] MEDS: Insulin Lispro 100 Units/ML 3 ML Vial SUBCUT SCH ×2 (08:13→11:51)
[2019-08-07] MEDS: Lactulose Soln 10 GM/15 ML 30 ML UD Cup PO SCH (09:37)
[2019-08-07] MEDS: Iron Polysaccharides Complex 150 MG Cap PO SCH (09:37)
[2019-08-07] MEDS: Sucralfate 1 GM Tab PO SCH (09:37)
[2019-08-07] MEDS: Potassium Chloride 10 MEQ Tab.ER PO SCH (09:38)
[2019-08-07] MEDS: Rifaximin 550 MG Tab PO SCH (09:38)
[2019-08-07] MEDS: Famotidine 20 MG Tab PO SCH (09:38)
[2019-08-07] MEDS: Furosemide 20 MG Tab PO SCH (09:38)
[2019-08-07] MEDS: Aspirin 81 MG Tab.EC PO SCH (09:38)
[2019-08-07] MEDS: Metoprolol Tartrate 25 MG Tab PO SCH (09:39)
[2019-08-07] MEDS: Fluconazole 100 MG Tab PO SCH (09:39)
--- NOTE | 2019-08-07 09:57 | PCM.DCSUM1 ---
Discharge Summary - Hospital Course Free Text/Narrative:: Patient is a 74-year-old female with medical history significant for ovarian cancer with metastasis to the liver, hepatic cirrhosis, hepatic encephalopathy, type 2 diabetes, history of upper GI bleed, and history of ascites was who was admitted for acute hepatic encephalopathy and UTI. She was started on lactulose and rifaximin. She was also started on Rocephin. Cultures came back positive for E. coli and Klebsiella sensitive to use ceftriaxone. Patient received total of 5 days of IV antibiotics. Mental status continued to improve throughout hospital stay. There were multiple times when patient refused repeat doses of lactulose because she had had 1 or 2 bowel movements. She was counseled about this and indicated that she would be adherent to her medications. She is being discharged home to follow-up with PCP. HPI Initial Comments: Patient is a 74-year-old female with medical history significant for ovarian cancer with metastasis to the liver, hepatic cirrhosis, hepatic encephalopathy, type 2 diabetes, history of upper GI bleed, and history of ascites was brought to the ED by EMS for confusion. In the ED, patient was unable to state why she was sent to the ED. On my questioning, patient still unsure why she was sent to the ED. Provided states that patient did not know the date and time and year. Also was disoriented to self. Presently, patient does not recall last time she had chemotherapy. Also does not recall having a port or the use of the port. However, she denies chest pain, shortness of breath, fevers, chills, nausea, vomiting, diarrhea, constipation, dysuria, hematuria, edema, or any other symptoms. States that she has a home medications past by home health nursing and has been getting her medications all the time. In the ED, patient's ammonia was elevated at 106. AST and ALT were normal. Alk phos was 121. Renal function was fairly normal except for elevated chloride of 108. CBC showed WBC count of 5.8 with hemoglobin of 9.3 and platelet count of 227. UA was positive for leukocytes and nitrites. Urine microscopy showed WBCs and bacteria. She was given a dose of IV Rocephin. Diagnosis: Stroke: No - Discharge Data Discharge Date: 08/07/19 Discharge Disposition: Home, Self-Care 01 Condition: Good - Referral to Home Health Primary Care Physician: [facility] - Discharge Diagnosis/Problem(s) (1) Cirrhosis of liver SNOMED Code(s): 37620401 ICD Code: K74.60 - UNSPECIFIED CIRRHOSIS OF LIVER Status: Acute Current Visit: Yes (2) Acute encephalopathy SNOMED Code(s): 53685493, 863022860 ICD Code: G93.40 - ENCEPHALOPATHY, UNSPECIFIED Status: Acute Current Visit: No (3) Anemia SNOMED Code(s): 697054985 ICD Code: D64.9 - ANEMIA, UNSPECIFIED Status: Acute Current Visit: No Qualifiers: Anemia type: unspecified type Qualified Code(s): D64.9 - Anemia, unspecified (4) Liver metastases Status: Acute Current Visit: No (5) UTI (urinary tract infection) SNOMED Code(s): 27182301 ICD Code: N39.0 - URINARY TRACT INFECTION, SITE NOT SPECIFIED Status: Acute Current Visit: No Qualifiers: Urinary tract infection type: acute cystitis Hematuria presence: without hematuria Qualified Code(s): N30.00 - Acute cystitis without hematuria - Discharge Plan *PRESCRIPTION DRUG MONITORING PROGRAM REVIEWED*: No *COPY OF PRESCRIPTION DRUG MONITORING REPORT IN PATIENT SANDHYA: No Prescriptions/Med Rec: Acetaminophen 1,000 mg PO Q6H PRN #3 tablet PRN Reason: Pain Rifaximin [Xifaxan] 550 mg PO BID #30 tablet Home Medications: Home Meds Aspirin [Halfprin] 81 mg PO DAILY 09/19/14 [History] Metoprolol Tartrate [Lopressor] 12.5 mg PO DAILY 10/14/17 [History] Famotidine 20 mg PO BID 11/16/18 [History] Sucralfate [Carafate] 1 gram PO QID 11/16/18 [History] Furosemide [Lasix] 20 mg PO DAILY #30 tablet 11/18/18 [Rx] Iron Polysaccharides Complex [Ferrex 150] 150 mg PO DAILY #30 cap 11/18/18 [Rx] Potassium Chloride [Klor-Con 10] 20 meq PO WITHBREAKFAST #30 tab.er 11/18/18 [Rx ] Alendronate Sodium 70 mg PO WEEKLY 08/04/19 [History] Calcium Citrate/Vitamin D3 [Calcium Citrate-Vit D3 Tablet] 1 tab PO BIDMEALS [History] Cholecalciferol (Vitamin D3) [Vitamin D3] 50 mcg PO DAILY 08/04/19 [History] Lactulose 30 ml PO TID 08/04/19 [History] Magnesium Oxide 400 mg PO DAILY 08/04/19 [History] Rifaximin [Xifaxan] 550 mg PO BID 08/04/19 [History] Spironolactone [Aldactone] 100 mg PO BID 08/04/19 [History] polyethylene glycoL 3350 [Miralax] 17 gram PO DAILY PRN 08/04/19 [History] Acetaminophen 1,000 mg PO Q6H PRN #3 tablet 08/07/19 [Rx] Rifaximin [Xifaxan] 550 mg PO BID #30 tablet 08/07/19 [Rx] Patient Handouts: Rifaximin tablets Referrals: PCP,Unobtain [Ordering Only Provider] - - Discharge Summary/Plan Comment DC Time >30 min.: Yes - General Info Date of Service: 08/07/19 Admission Dx/Problem (Free Text: Admission Diagnosis/Problem Admission Diagnosis/Problem Acute hepatic encephalopathy Subjective Update: No acute events overnight. Patient reports that she is feeling okay. She denies fevers, chills, nausea, vomiting, diarrhea, constipation, dysuria, hematuria, edema, or any new symptoms. Reports that she went today without taking the medications because of a granddaughter . Reports that she will be compliant to medications upon discharge. Has family at home to offer her support. - Patient Data Vitals - Most Recent: Last Vital Signs Temp 99.5 F 08/07/19 08:00 Pulse 85 08/07/19 09:39 Resp 20 08/07/19 08:00 BP 114/56 L 08/07/19 09:39 Pulse Ox 100 08/07/19 08:00 Weight - Most Recent: 159 lb I&O - Last 24 hours: Intake & Output 08/06/19 08/07/19 08/07/19 22:59 06:59 14:59 Intake Total 990 300 340 Output Total 450 300 Balance 540 0 340 Lab Results - Last 24 hrs: Laboratory Results - last 24 hr 08/06/19 08/06/19 08/06/19 Range/Units 11:27 16:37 20:49 Sodium (136-145) mmol/L Potassium (3.5-5.1) mmol/L Chloride (98-107) mmol/L Carbon Dioxide (21-32) mmol/L Anion Gap (7-13) mEq/L BUN (7-18) mg/dL Creatinine (0.55-1.02) mg/dL Est Cr Clr Drug Dosing mL/min Estimated GFR (MDRD) Glucose (74-99) mg/dL POC Glucose 179 H 129 H 146 H (83-110) mg/dl Calcium (8.5-10.1) mg/dL 08/07/19 08/07/19 Range/Units 05:58 07:36 Sodium 138 (136-145) mmol/L Potassium 4.1 (3.5-5.1) mmol/L Chloride 107 (98-107) mmol/L Carbon Dioxide 23 (21-32) mmol/L Anion Gap 12.1 (7-13) mEq/L BUN 10 (7-18) mg/dL Creatinine 0.87 (0.55-1.02) mg/dL Est Cr Clr Drug Dosing 50.47 mL/min Estimated GFR (MDRD) > 60 Glucose 137 H (74-99) mg/dL POC Glucose 114 H (83-110) mg/dl Calcium 7.2 L (8.5-10.1) mg/dL Med Orders - Current: Current Medications Acetaminophen (Tylenol) 1,000 mg PO Q4H PRN PRN Reason: Pain Aspirin (Halfprin) 81 mg PO DAILY [facility] Last Admin: 08/07/19 09:38 Dose: 81 mg Dextrose/Water (Dextrose 50% In Water) 25 ml IVPUSH ASDIRECTED PRN PRN Reason: Hypoglycemia Famotidine (Pepcid) 20 mg PO BID [facility] Last Admin: 08/07/19 09:38 Dose: 20 mg Fluconazole (Diflucan) 200 mg PO DAILY [facility] Last Admin: 08/07/19 09:39 Dose: 200 mg Furosemide (Lasix) 20 mg PO DAILY [facility] Last Admin: 08/07/19 09:38 Dose: 20 mg Glucagon (Glucagen) 1 mg IM ONETIME PRN PRN Reason: Hypoglycemia Heparin Sodium (Porcine) (Heparin Sodium) 5,000 units SUBCUT Q8HR [facility] Last Admin: 08/07/19 05:53 Dose: 5,000 units Ceftriaxone Sodium 2 gm/ (Sodium Chloride) 100 mls @ 200 mls/hr IV Q24H [facility] Last Admin: 08/06/19 16:37 Dose: 200 mls/hr Insulin Human Lispro (Humalog) 0 unit SUBCUT WITHMEALSANDBED [facility]; Protocol Last Admin: 08/07/19 08:13 Dose: Not Given Lactulose (Cephulac) 20 gm PO TID [facility] Last Admin: 08/07/19 09:37 Dose: 20 gm Metoprolol Tartrate (Lopressor) 12.5 mg PO DAILY [facility] Last Admin: 08/07/19 09:39 Dose: 12.5 mg Pantoprazole Sodium (Protonix) 40 mg PO BIDAC [facility] Last Admin: 08/07/19 05:53 Dose: 40 mg Polysaccharide Iron Complex (Ferrex 150) 150 mg PO DAILY [facility] Last Admin: 08/07/19 09:37 Dose: 150 mg Potassium Chloride (Klor-Con 10) 20 meq PO WITHBREAKFAST [facility] Last Admin: 08/07/19 09:38 Dose: 20 meq Rifaximin (Xifaxan) 550 mg PO BID [facility] Last Admin: 08/07/19 09:38 Dose: 550 mg Sucralfate (Carafate) 1 gm PO QID [facility] Last Admin: 08/07/19 09:37 Dose: 1 gm Discontinued Medications Sodium Chloride (Normal Saline) 1,000 mls @ 200 mls/hr IV .BOLUS ONE Stop: 08/03/19 22:11 Last Admin: 08/03/19 17:22 Dose: 200 mls/hr Ceftriaxone Sodium 1 gm/ (Sodium Chloride) 50 mls @ 100 mls/hr IV ONETIME ONE Stop: 08/03/19 17:42 Last Infusion: 08/03/19 17:58 Dose: Infused Sodium Chloride (Normal Saline) 1,000 mls @ 125 mls/hr IV ASDIRECTED [facility] Stop: 08/04/19 18:31 Lactated Ringer's (Ringers, Lactated) 1,000 mls @ 125 mls/hr IV ASDIRECTED [facility] Stop: 08/04/19 18:31 Last Infusion: 08/04/19 19:31 Dose: Infused Pantoprazole Sodium (Protonix) 40 mg PO BID [facility] Last Admin: 08/04/19 08:58 Dose: 40 mg - Exam General: Reports: Alert, Oriented, Cooperative, No Acute Distress HEENT: Reports: Pupils Equal, Mucous Membr. Moist/[place] Neck: Reports: Supple Lungs: Reports: Clear to Auscultation, Normal Respiratory Effort Cardiovascular: Reports: Regular Rate, Regular Rhythm GI/Abdominal Exam: Normal Bowel Sounds, Soft, Non-Tender, No Distention Extremities: Normal Inspection, Normal Range of Motion, Non-Tender, No Pedal Edema Skin: Reports: Warm, Dry, Intact Neurological: Reports: No New Focal Deficit Psy/Mental Status: Reports: Alert, Normal Affect, Normal Mood
[2019-08-07 12:06] VITALS: BP 132/62; PULSE 80
== END 2019-08-07 13:00 | disposition home or self-care (01) | DRG 442 ==
LOC: DL.ED 15:17 → DL.MS 17:48
PROVIDERS: ADMIT Internal Medicine; ATTEND Internal Medicine
DX: G93.40 Encephalopathy, unspecified (principal); K72.00 Acute and subacute hepatic failure without coma; H54.7 Unspecified visual loss; C78.7 Secondary malignant neoplasm of liver and intrahepatic bile duct; Z86.010 Personal history of colon polyps; N30.00 Acute cystitis without hematuria; K76.6 Portal hypertension; C56.9 Malignant neoplasm of unspecified ovary; D64.9 Anemia, unspecified; Z98.49 Cataract extraction status, unspecified eye; K74.60 Unspecified cirrhosis of liver; F10.21 Alcohol dependence, in remission; E61.1 Iron deficiency; E11.9 Type 2 diabetes mellitus without complications; Z91.041 Radiographic dye allergy status; K31.89 Other diseases of stomach and duodenum; B96.20 Unspecified Escherichia coli [E. coli] as the cause of diseases classified elsewhere; B96.1 Klebsiella pneumoniae [K. pneumoniae] as the cause of diseases classified elsewhere; E86.0 Dehydration; I10 Essential (primary) hypertension; M19.90 Unspecified osteoarthritis, unspecified site; E66.9 Obesity, unspecified; Z88.8 Allergy status to other drugs, medicaments and biological substances; Z91.013 Allergy to seafood; Z79.82 Long term (current) use of aspirin; Z79.84 Long term (current) use of oral hypoglycemic drugs; Z79.899 Other long term (current) drug therapy; Z90.49 Acquired absence of other specified parts of digestive tract; Z28.82 Immunization not carried out because of caregiver refusal; Z68.27 Body mass index [BMI] 27.0-27.9, adult
CPT/HCPCS: 36415; 70450; 80053; 81001; 82140; 85025; 87086; 87088 ×2; 87186 ×2; 96365; 99285; J0696; J7030; J7050; 51702; 51798; 74018; 80048; 80076; 82962; 83735; 84100; 85027; 99284; A9270-GY; J1642; J1644; J1815-GY; J7120

== ENCOUNTER 2019-08-20 15:22 | Emergency (ER) | payer MEDICARE, MEDICAID ==
[2019-08-20 15:27] VITALS: BP 97/55; PULSE 72
[2019-08-20] MEDS ORDERED: Acetaminophen/HYDROcodone 325-10 MG Tab PO ONE ×2 (15:42→17:05)
--- NOTE | 2019-08-20 16:14 | CT ---
PROCEDURE INFORMATION: Exam: CT Pelvis Without Contrast; Skeletal Exam date and time: 08/20/2019 3:38 PM Age: 74 years old Clinical indication: Other: Fall, right sided pain; Additional info: Fall, pain to RT beatriz pelvis RT hip---, PT with metastatic ovaria CA HX TECHNIQUE: Imaging protocol: Computed tomography images of the pelvis without contrast. Exam focused on the skeletal structures. Radiation optimization: All CT scans at this facility use at least one of these dose optimization techniques: automated exposure control; mA and/or kV adjustment per patient size (includes targeted exams where dose is matched to clinical indication); or iterative reconstruction. COMPARISON: CT Abdomen Pelvis wo Cont 07/18/2019 10:29 AM FINDINGS: Reproductive: There are multiple vascular calcifications that rim the uterus. In the right side of the pelvis there are calcifications about 15 mm in diameter which may be in the right ovary. There is a vague cystic appearing mass in the region of the right ovary 4.7 cm in diameter. Intraperitoneal space: There is a large amount of ascites fluid in the lower abdomen and in the pelvis. There is a 1.9 cm fluid collection in a paraumbilical hernia which is unchanged. Vasculature: There are prominent atherosclerotic calcifications of the femoral arteries. Bones/joints: There is severe disc space narrowing and vacuum disc phenomenon at L5-S1. There is vacuum joint phenomenon and anterior osteophytic lipping in both sacroiliac joints. The pelvis is intact with no sign of fracture. There are degenerative changes in the acetabular joints consisting of joint space narrowing and subchondral bony cystic change. There is degenerative spurring at both acetabular margins and hip joint impingement is suspected. There is no sign of hip fracture. Soft tissues: See "Intraperitoneal space" finding. IMPRESSION: 1. Large amount of ascites in the pelvis and lower abdomen. 2. Severe disc space narrowing and vacuum disc phenomenon at L5-S1. 3. Degenerative changes in the sacroiliac joints. 4. Moderate primary osteoarthritis in both hips and probable hip joint impingement. There is no sign of hip or pelvis fracture. 5. Vague 4.7 cm right-sided pelvic cyst with adjacent amorphous calcifications.
--- NOTE | 2019-08-20 16:22 | EDM.PDOC ---
Scribed by María Ramesh 08/20/19 1541 for Noelle Desai MD ED HPI GENERAL MEDICAL PROBLEM - General Chief Complaint: Lower Extremity Injury/Pain Stated Complaint: ambulance Time Seen by Provider: 08/20/19 15:25 Source of Information: Reports: Patient, EMS, Old Records, RN, RN Notes Reviewed History Limitations: Reports: No Limitations - History of Present Illness INITIAL COMMENTS - FREE TEXT/NARRATIVE: Pt arrives from home by [facility] with c/o right hip and right beatriz pelvis pain sustained from a ground level fall yesterday when she tripped on a rug. Denies head injury, neck pain, or any other area(s) of injury. Onset: Sudden Onset Date: 08/19/19 Duration: Constant Location: Reports: Lower Extremity, Right Quality: Reports: Ache Severity: Severe Improves with: Reports: Immobilization Worsens with: Reports: Movement Context: Reports: Other (Fall) Associated Symptoms: Reports: No Other Symptoms Right Leg Pain Score (Numeric/FACES): 7 - Related Data Allergies Allergy/AdvReac Type Severity Reaction Status Date / Time Iodinated Contrast Media Allergy Hives Verified 08/20/19 15:34 [Iodinated Contrast Media - IV Dye] lisinopril Allergy Cough Verified 08/20/19 15:34 saxagliptin Allergy Cannot Verified 08/20/19 15:34 Remember shellfish derived Allergy Hives Verified 08/20/19 15:34 LISINOPRIL-HYDROCHLOROTHIAZIDE Allergy Other Uncoded 08/20/19 15:34 Home Meds: Home Meds Aspirin [Halfprin] 81 mg PO DAILY 09/19/14 [History] Metoprolol Tartrate [Lopressor] 12.5 mg PO DAILY 10/14/17 [History] Famotidine 20 mg PO BID 11/16/18 [History] Sucralfate [Carafate] 1 gram PO QID 11/16/18 [History] Furosemide [Lasix] 20 mg PO DAILY #30 tablet 11/18/18 [Rx] Iron Polysaccharides Complex [Ferrex 150] 150 mg PO DAILY #30 cap 11/18/18 [Rx] Potassium Chloride [Klor-Con 10] 20 meq PO WITHBREAKFAST #30 tab.er 11/18/18 [Rx ] Alendronate Sodium 70 mg PO WEEKLY 08/04/19 [History] Calcium Citrate/Vitamin D3 [Calcium Citrate-Vit D3 Tablet] 1 tab PO BIDMEALS [History] Cholecalciferol (Vitamin D3) [Vitamin D3] 50 mcg PO DAILY 08/04/19 [History] Lactulose 30 ml PO TID 08/04/19 [History] Magnesium Oxide 400 mg PO DAILY 08/04/19 [History] Rifaximin [Xifaxan] 550 mg PO BID 08/04/19 [History] Spironolactone [Aldactone] 100 mg PO BID 08/04/19 [History] polyethylene glycoL 3350 [Miralax] 17 gram PO DAILY PRN 08/04/19 [History] Acetaminophen 1,000 mg PO Q6H PRN #3 tablet 08/07/19 [Rx] Rifaximin [Xifaxan] 550 mg PO BID #30 tablet 08/07/19 [Rx] Past Medical History HEENT History: Reports: Allergic Rhinitis, Impaired Vision Cardiovascular History: Reports: Hypertension Other Cardiovascular History: ?TIA vs neuritis pain left face. 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 Degenerative disc disease Neurological History: Other Neuro History: Portal Palsey Left side face since Psychiatric History: Reports: Other (See Below) Other Psychiatric History: history of alcohol abuse. Endocrine/Metabolic History: Reports: Diabetes, Type II, Obesity/BMI 30+ Other Endocrine/Metabolic History: OSTEOARTHRITIS, right knee Hematologic History: Reports: Anemia, Iron Deficiency, Other (See Below) Other Hematologic History: Hypoalbumenia Immunologic History: Reports: None Oncologic (Cancer) History: Reports: Metastatic, Ovarian Dermatologic History: Reports: None - Infectious Disease History Infectious Disease History: Reports: Chicken Pox, Measles, Mumps - Past Surgical History Head Surgeries/Procedures: Reports: None HEENT Surgical History: Reports: Cataract Surgery Cardiovascular Surgical History: Reports: None Respiratory Surgical History: Reports: None GI Surgical History: Reports: Appendectomy, Cholecystectomy, Colonoscopy, Polypectomy Female Surgical History: Reports: Section Endocrine Surgical History: Reports: None Musculoskeletal Surgical History: Reports: Other (See Below) Other Musculoskeletal Surgeries/Procedures:: bilateral shoulder surgery Oncologic Surgical History: Reports: None Dermatological Surgical History: Reports: None Social & Family History - Family History Family Medical History: Noncontributory - Caffeine Use Caffeine Use: Reports: Coffee, Tea Caffeine Use Comment: 32oz coffee. 8 oz daily tea - Living Situation & Occupation Living situation: Reports: with Family Occupation: Retired Review of Systems - Review of Systems Review Of Systems: Comprehensive ROS is negative, except as noted in HPI. ED EXAM, GENERAL - Physical Exam Exam: See Below Exam Limited By: No Limitations General Appearance: Alert, No Apparent Distress, Other (Chronically ill appearing) Eye Exam: Bilateral Eye: Normal Inspection Ears: Hearing Grossly Normal Nose: Normal Inspection, No Blood Throat/Mouth: Normal Inspection, Normal Lips, Normal Voice, No Airway Compromise Head: Atraumatic, Normocephalic Neck: Normal Inspection, Non-Tender, Full Range of Motion Respiratory/Chest: No Respiratory Distress, Lungs Clear, No Accessory Muscle Use , Chest Non-Tender, Decreased Breath Sounds Cardiovascular: Regular Rate, Rhythm Peripheral Pulses: 2+: Posterior Tibial (L), Posterior Tibial (R), Dorsalis Pedis (L), Dorsalis Pedis (R), 3+: Radial (L), Radial (R) GI/Abdominal: Normal Bowel Sounds, Soft, Non-Tender, No Distention, Pelvis Stable (Tender overlying Rt pubic rami region). No: Guarding, Rigid, Rebound (Female) Exam: Deferred Rectal (Female) Exam: Deferred Back Exam: Normal Inspection Extremities: Normal Capillary Refill, Leg Pain (Tender overlying Rt lateral and anterior hip), Limited Range of Motion (Rt hip). No: Joint Swelling Neurological: Alert, Oriented, No Motor/Sensory Deficits Psychiatric: Normal Mood Skin Exam: Warm, Dry, Intact Course - Vital Signs Last Recorded V/S: Last Vital Signs Temp 98.4 F 08/20/19 15:24 Pulse 72 08/20/19 15:24 Resp 16 08/20/19 15:24 BP 97/55 L 08/20/19 15:24 Pulse Ox 99 08/20/19 15:24 - Orders/Labs/Meds Meds: Medications Discontinued Medications Generic Name Dose Route Start Last Admin Trade Name Freq PRN Reason Stop Dose Admin Hydrocodone Bitart/Acetaminophen 1 tab 08/20/19 15:42 08/20/19 15:48 [place] 325-10 Mg PO 08/20/19 15:43 1 tab ONETIME ONE Administration - Radiology Interpretation Free Text/Narrative:: [facility] [place] [facility] Final Radiology Report Call: [phone] assistance Online chat: [email or web address] Name: GIA HARRIS Age: 74Years F Date: 08/20/2019 SSN: -- : [id number] Study: CT PELVIS WO CONT Requesting Physician: NOELLE DESAI Images: [id number] Addl Studies: Provided Clinical History: Fall, pain to Rt beatriz pelvis Rt hip---, PT with metastatic ovaria CA HX Contrast: Without Contrast Medium: Contrast Amount: Contrast Method: Page 1 of 2 PROCEDURE INFORMATION: Exam: CT Pelvis Without Contrast; Skeletal Exam date and time: 08/20/2019 3:38 PM Age: 74 years old Clinical indication: Other: Fall, right sided pain; Additional info: Fall, pain to RT beatriz pelvis RT hip- --, PT with metastatic ovaria CA HX TECHNIQUE: Imaging protocol: Computed tomography images of the pelvis without contrast. Exam focused on the skeletal structures. Radiation optimization: All CT scans at this facility use at least one of these dose optimization techniques: automated exposure control; mA and/or kV adjustment per patient size (includes targeted exams where dose is matched to clinical indication); or iterative reconstruction. COMPARISON: CT Abdomen Pelvis wo Cont 07/18/2019 10:29 AM FINDINGS: Reproductive: There are multiple vascular calcifications that rim the uterus. In the right side of the pelvis there are calcifications about 15 mm in diameter which may be in the right ovary. There is a vague cystic appearing mass in the region of the right ovary 4.7 cm in diameter. Intraperitoneal space: There is a large amount of ascites fluid in the lower abdomen and in the pelvis. There is a 1.9 cm fluid collection in a paraumbilical hernia which is unchanged. Vasculature: There are prominent atherosclerotic calcifications of the femoral arteries. Bones/joints: There is severe disc space narrowing and vacuum disc phenomenon at L5-S1. There is vacuum joint phenomenon and anterior osteophytic lipping in both sacroiliac joints. The pelvis is intact with no sign of fracture. There are degenerative changes in the acetabular joints consisting of joint space narrowing and subchondral bony cystic change. There is degenerative spurring at both acetabular margins and hip joint impingement is suspected. There is no sign of hip fracture. GIA HARRIS | Final Radiology Report CONFIDENTIALITY STATEMENT This report is intended only for use by the referring physician, and only in accordance with law. If you received this in error, call [phone]. Page 2 of 2 Soft tissues: See "Intraperitoneal space" finding. IMPRESSION: 1. Large amount of ascites in the pelvis and lower abdomen. 2. Severe disc space narrowing and vacuum disc phenomenon at L5-S1. 3. Degenerative changes in the sacroiliac joints. 4. Moderate primary osteoarthritis in both hips and probable hip joint impingement. There is no sign of hip or pelvis fracture. 5. Vague 4.7 cm right-sided pelvic cyst with adjacent amorphous calcifications. Thank you for allowing us to participate in the care of your patient. Dictated and Authenticated by: Janusz Barroso DO 08/20/2019 4:14 PM Central Time ([place] & [place]) Departure - Departure Time of Disposition: 16:20 Disposition: Home, Self-Care 01 Condition: Good Clinical Impression: Fall as cause of accidental injury at home as place of occurrence Qualifiers: Encounter type: initial encounter Qualified Code(s): W19.XXXA - Unspecified fall, initial encounter; Y92.009 - Unspecified place in unspecified non- institutional (private) residence as the place of occurrence of the external cause Contusion of right hip and thigh Qualifiers: Encounter type: initial encounter Qualified Code(s): S70.01XA - Contusion of right hip, initial encounter; S70.11XA - Contusion of right thigh, initial encounter - Discharge Information *PRESCRIPTION DRUG MONITORING PROGRAM REVIEWED*: No *COPY OF PRESCRIPTION DRUG MONITORING REPORT IN PATIENT SANDHYA: No Instructions: Contusion, [id number], Hip Pain Forms: ED Department Discharge Additional Instructions: Hydrocodone APAP 10mg/325m/2 to 1 tablet by mouth every 6 hours as needed for pain. Follow up in clinic this week for recheck. Sepsis Event Note - Focused Exam Vital Signs: Vital Signs Temp Pulse Resp BP Pulse Ox 08/20/19 15:24 98.4 F 72 16 97/55 L 99 Date Exam was Performed: 08/20/19 Time Exam was Performed: 16:19 I have read and agree with the documentation that has been completed regarding this visit. By signing this record, I attest that the documentation was completed in my physical presence and is an accurate record of the encounter.
[2019-08-20] MEDS ORDERED: Acetaminophen/HYDROcodone 325-10 MG Tab ONE (17:04)
== END 2019-08-20 17:07 | disposition home or self-care (01) ==
LOC: DL.ED 15:22
DX: S70.01XA Contusion of right hip, initial encounter (principal); S70.11XA Contusion of right thigh, initial encounter; I10 Essential (primary) hypertension; M19.90 Unspecified osteoarthritis, unspecified site; E11.9 Type 2 diabetes mellitus without complications; E66.9 Obesity, unspecified; Z68.29 Body mass index [BMI] 29.0-29.9, adult; Z88.8 Allergy status to other drugs, medicaments and biological substances; Z91.013 Allergy to seafood; Z91.041 Radiographic dye allergy status; Z79.82 Long term (current) use of aspirin; Z79.899 Other long term (current) drug therapy; W01.0XXA Fall on same level from slipping, tripping and stumbling without subsequent striking against object, initial encounter; Y92.009 Unspecified place in unspecified non-institutional (private) residence as the place of occurrence of the external cause
CPT/HCPCS: 72192; 99283; 99284; A9270

== ENCOUNTER 2019-09-28 03:58 | Emergency (ER) | payer MEDICARE, MEDICAID ==
[~2019-09-28 03:58] MED LIST: Sodium Chloride 0.9% 1,000 ML IV ONE
--- NOTE | 2019-09-28 04:32 | CT ---
PROCEDURE INFORMATION: Exam: CT Head Without Contrast Exam date and time: 09/28/2019 4:24 AM Age: 74 years old Clinical indication: Altered mental status/memory loss; Confusion or disorientation TECHNIQUE: Imaging protocol: Computed tomography of the head without contrast. Radiation optimization: All CT scans at this facility use at least one of these dose optimization techniques: automated exposure control; mA and/or kV adjustment per patient size (includes targeted exams where dose is matched to clinical indication); or iterative reconstruction. Other technique: STROKE PROTOCOL was implemented. COMPARISON: CT Head wo Cont 08/03/2019 5:01 PM FINDINGS: Brain: Normal. No hemorrhage. Unremarkable white matter. No mass effect. Ventricles: Normal. No ventriculomegaly. Bones/joints: Unremarkable. No acute fracture. Sinuses: Visualized sinuses are unremarkable. No fluid levels. Chronic right maxillary sinusitis Mastoid air cells: Visualized mastoid air cells are well aerated. Soft tissues: Unremarkable. IMPRESSION: No acute intracranial abnormality. ASSESSMENT: ASPECTS ([place] Stroke Program Early CT Score) is 10.
[2019-09-28 04:35] VITALS: BP 130/54; PULSE 67
[2019-09-28 04:52] LABS: ANION GAP 12.2 mEq/L (7-13); CHLORIDE,CL 111 mmol/L (98-107); SODIUM,NA 141 mmol/L (136-145)
[2019-09-28] MEDS ORDERED: cefTRIAXone 1 GM in Sodium Chloride 0.9% 50 ML IV ONE (05:09)
--- NOTE | 2019-09-28 05:38 | EDM.PDOC ---
ED HPI GENERAL MEDICAL PROBLEM - General Chief Complaint: Neuro Symptoms/Deficits Stated Complaint: AMBULANCE Time Seen by Provider: 09/28/19 04:30 Source of Information: Reports: Family, RN History Limitations: Reports: No Limitations - History of Present Illness INITIAL COMMENTS - FREE TEXT/NARRATIVE: ED with c/o difficulty arousing, last saw "normal at 4pm when went to bed. appetie fair yesterday, No reported fever or chills. Recent blood in stools per daughter. Hx cancer with mets to liver, just had abdomen drained on 09/19. Scheduled for colonoscopy on 10/03 in [place]. Son called reported patient has not been taking lactulose. No recent cough. No known exposure to COVID. Pre procedure covid testing 09/25 results unknown. - Related Data Allergies Allergy/AdvReac Type Severity Reaction Status Date / Time Iodinated Contrast Media Allergy Hives Verified 09/28/19 03:58 [Iodinated Contrast Media - IV Dye] lisinopril Allergy Cough Verified 09/28/19 03:58 saxagliptin Allergy Cannot Verified 09/28/19 03:58 Remember shellfish derived Allergy Hives Verified 09/28/19 03:58 LISINOPRIL-HYDROCHLOROTHIAZIDE Allergy Other Uncoded 09/28/19 03:58 Home Meds: Home Meds Aspirin [Halfprin] 81 mg PO DAILY 09/19/14 [History] Metoprolol Tartrate [Lopressor] 12.5 mg PO DAILY 10/14/17 [History] Famotidine 20 mg PO BID 11/16/18 [History] Sucralfate [Carafate] 1 gram PO QID 11/16/18 [History] Furosemide [Lasix] 20 mg PO DAILY #30 tablet 11/18/18 [Rx] Iron Polysaccharides Complex [Ferrex 150] 150 mg PO DAILY #30 cap 11/18/18 [Rx] Potassium Chloride [Klor-Con 10] 20 meq PO WITHBREAKFAST #30 tab.er 11/18/18 [Rx] Alendronate Sodium 70 mg PO WEEKLY 08/04/19 [History] Calcium Citrate/Vitamin D3 [Calcium Citrate-Vit D3 Tablet] 1 tab PO BIDMEALS 08/04/19 [History] Cholecalciferol (Vitamin D3) [Vitamin D3] 50 mcg PO DAILY 08/04/19 [History] Lactulose 30 ml PO TID 08/04/19 [History] Magnesium Oxide 400 mg PO DAILY 08/04/19 [History] Rifaximin [Xifaxan] 550 mg PO BID 08/04/19 [History] Spironolactone [Aldactone] 100 mg PO BID 08/04/19 [History] polyethylene glycoL 3350 [Miralax] 17 gram PO DAILY PRN 08/04/19 [History] Acetaminophen 1,000 mg PO Q6H PRN #3 tablet 08/07/19 [Rx] Rifaximin [Xifaxan] 550 mg PO BID #30 tablet 08/07/19 [Rx] Past Medical History HEENT History: Reports: Allergic Rhinitis, Impaired Vision Cardiovascular History: Reports: Hypertension Other Cardiovascular History: ?TIA vs neuritis pain left face. Guzman's Palsy Respiratory History: Reports: None Gastrointestinal History: Reports: Colon Polyp, GI Bleed, Other (See Below) (Metastatic ovarian cancer to liver with ascites) Genitourinary History: Reports: UTI, Recurrent FOUNDING PARTNER History: Reports: Musculoskeletal History: Reports: Arthritis, Fracture, Osteoarthritis Other Musculoskeletal History: knees, toes and fingers; foot fracture. Degenerative disc disease Neurological History: Other Neuro History: [place] Left side face since Psychiatric History: Reports: Other (See Below) Other Psychiatric History: history of alcohol abuse. Endocrine/Metabolic History: Reports: Diabetes, Type II, Obesity/BMI 30+ Other Endocrine/Metabolic History: OSTEOARTHRITIS, right knee Hematologic History: Reports: Anemia, Iron Deficiency, Other (See Below) Other Hematologic History: Hypoalbumenia Immunologic History: Reports: None Oncologic (Cancer) History: Reports: Metastatic, Ovarian Dermatologic History: Reports: None - Infectious Disease History Infectious Disease History: Reports: Chicken Pox, Measles, Mumps - Past Surgical History Head Surgeries/Procedures: Reports: None HEENT Surgical History: Reports: Cataract Surgery Cardiovascular Surgical History: Reports: None Respiratory Surgical History: Reports: None GI Surgical History: Reports: Appendectomy, Cholecystectomy, Colonoscopy, Polypectomy Female Surgical History: Reports: Section Endocrine Surgical History: Reports: None Musculoskeletal Surgical History: Reports: Other (See Below) Other Musculoskeletal Surgeries/Procedures:: bilateral shoulder surgery Oncologic Surgical History: Reports: None Dermatological Surgical History: Reports: None Social & Family History - Family History Family Medical History: Noncontributory - Caffeine Use Caffeine Use: Reports: Coffee, Tea Caffeine Use Comment: 32oz coffee. 8 oz daily tea - Living Situation & Occupation Living situation: Reports: with Family Occupation: Retired ED ROS GENERAL - Review of Systems Review Of Systems: Comprehensive ROS is negative, except as noted in HPI. ED EXAM, NEURO - Physical Exam Exam: See Below Exam Limited By: No Limitations General Appearance: Lethargic (moaning responds to pain), Obese Eye Exam: Bilateral Eye: EOMI, PERRL Ears: Normal External Exam, Normal TMs Nose: Normal Inspection Throat/Mouth: Other (poor oral care, mucus membranes tacky) Head Exam: Atraumatic, Normocephalic Respiratory/Chest: No Respiratory Distress, Lungs Clear, Normal Breath Sounds Cardiovascular: Normal Peripheral Pulses, Regular Rate, Rhythm. No: No Edema (1+) GI/Abdominal: Normal Bowel Sounds, Soft, Distended. No: Guarding (Female) Exam: Other (incontinent foul smelling urine) Neurological: Withdraws to Pain. No: Alert Extremities: Pedal Edema (1+). No: Mottled Skin Exam: Warm, Dry, Intact. No: Jaundice, Petechiae, Rash Course - Vital Signs Last Recorded V/S: Last Vital Signs Temp 97.4 F 09/28/19 04:34 Pulse 67 09/28/19 04:34 Resp 10 L 09/28/19 04:34 BP 130/54 L 09/28/19 04:34 Pulse Ox 90 L 09/28/19 04:34 - Orders/Labs/Meds Labs: Laboratory Tests 09/28/19 09/28/19 09/28/19 Range/Units 04:09 04:09 04:13 WBC 5.7 (5.0-10.0) 10^3/uL RBC 3.79 L (4.2-5.4) 10^6/uL Hgb 8.4 L (12.0-16.0) g/dL Hct 26.9 L (37.0-47.0) % MCV 71.0 L D (80-100) fL MCH 22.2 L (27.0-34.0) pg MCHC 31.2 L (33.0-35.0) g/dL Plt Count 209 (150-450) 10^3/uL Neut % (Auto) 64.1 (42.2-75.2) % Lymph % (Auto) 20.2 L (20.5-50.1) % [place] % (Auto) 14.8 H (2-8) % Eos % (Auto) 0.7 L (1.0-3.0) % Baso % (Auto) 0.2 (0.0-1.0) % PT (9.0-12.0) SEC INR (0.9-1.2) Sodium (136-145) mmol/L Potassium (3.5-5.1) mmol/L Chloride (98-107) mmol/L Carbon Dioxide (21-32) mmol/L Anion Gap (7-13) mEq/L BUN (7-18) mg/dL Creatinine (0.55-1.02) mg/dL Est Cr Clr Drug Dosing Estimated GFR (MDRD) BUN/Creatinine Ratio (No establ ref range) Glucose (74-99) mg/dL Lactic Acid (0.4-2.0) mmol/L Calcium (8.5-10.1) mg/dL Magnesium (1.8-2.4) mg/dL Total Bilirubin (0.2-1.0) mg/dL AST (15-37) U/L ALT (14-59) U/L Alkaline Phosphatase (46-116) U/L Ammonia (11-32) umol/L Troponin I (0.000-0.056) ng/mL B-Natriuretic Peptide (0-100) pg/ml Total Protein (6.4-8.2) g/dL Albumin (3.4-5.0) g/dL Globulin Albumin/Globulin Ratio Amylase (25-115) U/L Lipase (73-393) U/L Urine Color Yellow (YELLOW) Urine Appearance Slightly cloudy (CLEAR) Urine pH 7.0 (5.0-9.0) Ur Specific [place] 1.015 (1.005-1.030) Urine Protein Negative (NEGATIVE) Urine Glucose (UA) Negative (NEGATIVE) Urine Ketones Negative (NEGATIVE) Urine Occult Blood Negative (NEGATIVE) Urine Nitrite Positive H (NEGATIVE) Urine Bilirubin Negative (NEGATIVE) Urine Urobilinogen 0.2 (0.2-1.0) mg/dL Ur Leukocyte Esterase Trace H (NEGATIVE) Urine RBC 0-5 /HPF Urine WBC 5-10 H (0-5/HPF) /HPF Ur Epithelial Cells Occasional (NOT SEEN) /HPF Amorphous Sediment Few (NOT SEEN) /HPF Urine Bacteria Many H (0-FEW/HPF) /HPF Urine Mucus Not seen (NOT SEEN) /LPF Urine Opiates Screen Negative (NEGATIVE) Ur Oxycodone Screen Negative (NEGATIVE) Urine Methadone Screen Negative (NEGATIVE) Ur Barbiturates Screen Negative (NEGATIVE) U Tricyclic Antidepress Negative (NEGATIVE) Ur Phencyclidine Scrn Negative (NEGATIVE) Ur Amphetamine Screen Negative (NEGATIVE) U Methamphetamines Scrn Negative (NEGATIVE) Urine MDMA Screen Negative (NEGATIVE) U Benzodiazepines Scrn Negative (NEGATIVE) Urine Cocaine Screen Negative (NEGATIVE) U Marijuana (THC) Screen Negative (NEGATIVE) Ethyl Alcohol (0) mg/dL COVID-19 (FLORIDALMA) (NEGATIVE) 09/28/19 09/28/19 09/28/19 Range/Units 04:13 04:13 04:13 WBC (5.0-10.0) 10^3/uL RBC (4.2-5.4) 10^6/uL Hgb (12.0-16.0) g/dL Hct (37.0-47.0) % MCV (80-100) fL MCH (27.0-34.0) pg MCHC (33.0-35.0) g/dL Plt Count (150-450) 10^3/uL Neut % (Auto) (42.2-75.2) % Lymph % (Auto) (20.5-50.1) % [place] % (Auto) (2-8) % Eos % (Auto) (1.0-3.0) % Baso % (Auto) (0.0-1.0) % PT 13.0 H (9.0-12.0) SEC INR 1.4 H (0.9-1.2) Sodium 141 (136-145) mmol/L Potassium 4.2 (3.5-5.1) mmol/L Chloride 111 H (98-107) mmol/L Carbon Dioxide 22 (21-32) mmol/L Anion Gap 12.2 (7-13) mEq/L BUN 15 (7-18) mg/dL Creatinine 0.73 (0.55-1.02) mg/dL Est Cr Clr Drug Dosing TNP Estimated GFR (MDRD) > 60 BUN/Creatinine Ratio 20.5 (No establ ref range) Glucose 107 H (74-99) mg/dL Lactic Acid (0.4-2.0) mmol/L Calcium 7.7 L (8.5-10.1) mg/dL Magnesium 1.8 (1.8-2.4) mg/dL Total Bilirubin 1.0 (0.2-1.0) mg/dL AST 21 (15-37) U/L ALT 13 L (14-59) U/L Alkaline Phosphatase 147 H (46-116) U/L Ammonia 181 H (11-32) umol/L Troponin I (0.000-0.056) ng/mL B-Natriuretic Peptide 108 H (0-100) pg/ml Total Protein 5.4 L (6.4-8.2) g/dL Albumin 2.0 L (3.4-5.0) g/dL Globulin 3.4 Albumin/Globulin Ratio 0.59 Amylase 44 (25-115) U/L Lipase 242 (73-393) U/L Urine Color (YELLOW) Urine Appearance (CLEAR) Urine pH (5.0-9.0) Ur Specific [place] (1.005-1.030) Urine Protein (NEGATIVE) Urine Glucose (UA) (NEGATIVE) Urine Ketones (NEGATIVE) Urine Occult Blood (NEGATIVE) Urine Nitrite (NEGATIVE) Urine Bilirubin (NEGATIVE) Urine Urobilinogen (0.2-1.0) mg/dL Ur Leukocyte Esterase (NEGATIVE) Urine RBC /HPF Urine WBC (0-5/HPF) /HPF Ur Epithelial Cells (NOT SEEN) /HPF Amorphous Sediment (NOT SEEN) /HPF Urine Bacteria (0-FEW/HPF) /HPF Urine Mucus (NOT SEEN) /LPF Urine Opiates Screen (NEGATIVE) Ur Oxycodone Screen (NEGATIVE) Urine Methadone Screen (NEGATIVE) Ur Barbiturates Screen (NEGATIVE) U Tricyclic Antidepress (NEGATIVE) Ur Phencyclidine Scrn (NEGATIVE) Ur Amphetamine Screen (NEGATIVE) U Methamphetamines Scrn (NEGATIVE) Urine MDMA Screen (NEGATIVE) U Benzodiazepines Scrn (NEGATIVE) Urine Cocaine Screen (NEGATIVE) U Marijuana (THC) Screen (NEGATIVE) Ethyl Alcohol < 3 (0) mg/dL COVID-19 (FLORIDALMA) (NEGATIVE) 09/28/19 09/28/19 09/28/19 Range/Units 04:13 04:13 04:32 WBC (5.0-10.0) 10^3/uL RBC (4.2-5.4) 10^6/uL Hgb (12.0-16.0) g/dL Hct (37.0-47.0) % MCV (80-100) fL MCH (27.0-34.0) pg MCHC (33.0-35.0) g/dL Plt Count (150-450) 10^3/uL Neut % (Auto) (42.2-75.2) % Lymph % (Auto) (20.5-50.1) % [place] % (Auto) (2-8) % Eos % (Auto) (1.0-3.0) % Baso % (Auto) (0.0-1.0) % PT (9.0-12.0) SEC INR (0.9-1.2) Sodium (136-145) mmol/L Potassium (3.5-5.1) mmol/L Chloride (98-107) mmol/L Carbon Dioxide (21-32) mmol/L Anion Gap (7-13) mEq/L BUN (7-18) mg/dL Creatinine (0.55-1.02) mg/dL Est Cr Clr Drug Dosing Estimated GFR (MDRD) BUN/Creatinine Ratio (No establ ref range) Glucose (74-99) mg/dL Lactic Acid 1.3 (0.4-2.0) mmol/L Calcium (8.5-10.1) mg/dL Magnesium (1.8-2.4) mg/dL Total Bilirubin (0.2-1.0) mg/dL AST (15-37) U/L ALT (14-59) U/L Alkaline Phosphatase (46-116) U/L Ammonia (11-32) umol/L Troponin I < 0.017 (0.000-0.056) ng/mL B-Natriuretic Peptide (0-100) pg/ml Total Protein (6.4-8.2) g/dL Albumin (3.4-5.0) g/dL Globulin Albumin/Globulin Ratio Amylase (25-115) U/L Lipase (73-393) U/L Urine Color (YELLOW) Urine Appearance (CLEAR) Urine pH (5.0-9.0) Ur Specific [place] (1.005-1.030) Urine Protein (NEGATIVE) Urine Glucose (UA) (NEGATIVE) Urine Ketones (NEGATIVE) Urine Occult Blood (NEGATIVE) Urine Nitrite (NEGATIVE) Urine Bilirubin (NEGATIVE) Urine Urobilinogen (0.2-1.0) mg/dL Ur Leukocyte Esterase (NEGATIVE) Urine RBC /HPF Urine WBC (0-5/HPF) /HPF Ur Epithelial Cells (NOT SEEN) /HPF Amorphous Sediment (NOT SEEN) /HPF Urine Bacteria (0-FEW/HPF) /HPF Urine Mucus (NOT SEEN) /LPF Urine Opiates Screen (NEGATIVE) Ur Oxycodone Screen (NEGATIVE) Urine Methadone Screen (NEGATIVE) Ur Barbiturates Screen (NEGATIVE) U Tricyclic Antidepress (NEGATIVE) Ur Phencyclidine Scrn (NEGATIVE) Ur Amphetamine Screen (NEGATIVE) U Methamphetamines Scrn (NEGATIVE) Urine MDMA Screen (NEGATIVE) U Benzodiazepines Scrn (NEGATIVE) Urine Cocaine Screen (NEGATIVE) U Marijuana (THC) Screen (NEGATIVE) Ethyl Alcohol (0) mg/dL COVID-19 (FLORIDALMA) Negative (NEGATIVE) Meds: Medications Discontinued Medications Generic Name Dose Route Start Last Admin Trade Name Freq PRN Reason Stop Dose Admin Sodium Chloride 1,000 mls @ 999 mls/hr 09/28/19 03:57 09/28/19 04:29 Normal Saline IV 09/28/19 04:57 150 mls/hr .BOLUS ONE Administration Ceftriaxone Sodium 1 gm/ 50 mls @ 100 mls/hr 09/28/19 05:09 09/28/19 05:18 Sodium Chloride IV 09/28/19 05:38 100 mls/hr ONETIME ONE Administration - Re-Assessments/Exams Free Text/Narrative Re-Assessment/Exam: 09/28/19 05:[address] Lawrence, recommending higher care. Dr Geno Dueñas accepting patient. Tx via [facility]. Departure - Departure Time of Disposition: 06:00 Disposition: DC/Tfer to Acute Hospital 02 Condition: Serious Clinical Impression: Acute encephalopathy, Chronic anemia UTI (urinary tract infection) Qualifiers: Urinary tract infection type: acute cystitis Hematuria presence: without hematuria Qualified Code(s): N30.00 - Acute cystitis without hematuria Cirrhosis of liver Qualifiers: Hepatic cirrhosis type: unspecified hepatic cirrhosis Ascites presence: without ascites Qualified Code(s): K74.60 - Unspecified cirrhosis of liver - Discharge Information *PRESCRIPTION DRUG MONITORING PROGRAM REVIEWED*: No *COPY OF PRESCRIPTION DRUG MONITORING REPORT IN PATIENT SANDHYA: No Referrals: PCP,None [Primary Care Provider] - Forms: ED Department Discharge Sepsis Event Note (ED) - Evaluation Sepsis Screening Result: No Definite Risk
== END 2019-09-28 05:58 ==
LOC: DL.ED 03:58
DX: G93.40 Encephalopathy, unspecified (principal); N30.00 Acute cystitis without hematuria; K74.60 Unspecified cirrhosis of liver; D64.9 Anemia, unspecified; I10 Essential (primary) hypertension; M19.90 Unspecified osteoarthritis, unspecified site; E11.9 Type 2 diabetes mellitus without complications; E66.9 Obesity, unspecified; Z20.828 Contact with and (suspected) exposure to other viral communicable diseases; Z91.041 Radiographic dye allergy status; Z88.8 Allergy status to other drugs, medicaments and biological substances; Z91.013 Allergy to seafood; Z79.82 Long term (current) use of aspirin; Z79.899 Other long term (current) drug therapy
CPT/HCPCS: 36415; 51702; 70450; 80053; 80305; 80307; 81001; 82140; 82150; 82272; 83605; 83690; 83735; 83880; 84484; 85025; 85610; 87040; 87086; 87088; 87186; 93005; 96365; 99285; J0696; J7030; J7050; U0002